=== PATIENT | female | born 1965 | race Caucasian/White ===

== ENCOUNTER → 2021-04-15 17:52 | Outpatient (CLI) | payer OTHER, SELFPAY ==
--- NOTE | ~2021-04-15 | DEXA_ITS ---
Bone Density Report Name: Ariana Colvin Age: 55 Sex: Female Ethnicity: White Date of : 1965 Indication: postmenopausal; screening for osteoporosis; Referring Provider: ZANDRA JOYNER Study: Bone densitometry was performed. Exam Date: April 15, 2021 Accession number: [id number] Bone Density: Region BMD T-score Z-score Classification AP Spine (L1-L4) 0.829 -2.0 -0.9 Osteopenia Femoral Neck (Left) 0.603 -2.2 -1.1 Osteopenia Total Hip (Left) 0.938 0.0 0.7 Normal Femoral Neck (Right) 0.574 -2.5 -1.4 Osteoporosis Total Hip (Right) 0.848 -0.8 -0.1 Normal Total Hip Mean 0.893 -0.4 0.3 Normal World Health Organization criteria for BMD impression classify patients as: Normal (T-score at or above -1.0), Osteopenia (T-score between -1.0 and -2.5), or Osteoporosis (T-score at or below -2.5). 10-year Fracture Risk: FRAX not reported because: Some T-score for Spine Total or Hip Total or Femoral Neck at or below -2.5 Clinical Information Provided by Patient: Patient maximum height was 62.0 Menopause Age: 48 Drinks caffeinated beverages Onset of menses at age 13 Number of children 2 Impression: The patient has osteoporosis, based on the Right Femoral Neck T-score. Discussion: INCREASED RISK OF FRACTURE. BONE DENSITY IS UNDESIRABLY LOW AT ONE OR MORE SKELETAL SITES, CONSISTENT WITH POSTMENOPAUSAL OSTEOPOROSIS. This patient's lowest T-score meets the World Health Organization's (WHO) criteria for osteoporosis at one or more sites (T-score -2.5 or below). In untreated patients, the risk of osteoporotic fracture increases approximately two-fold for each 1.0 SD decrease in T-score. Low bone density is not the only risk factor for fracture; also consider factors such as patient's age, frailty or poor health, risk of falling, risk of injury, previous osteoporotic fracture, family history of osteoporosis, cigarette smoking, low body weight, etc. Not everyone with low bone mineral density has osteoporosis; osteomalacia and other metabolic bone disorders should also be considered. Patients who have osteoporosis should be evaluated for specific diseases and conditions (secondary causes) that may cause or contribute to bone loss. The [place] Association [employer] Clinical Endocrinologists (AACE) and National Osteoporosis Foundation (NOF) recommend pharmacologic intervention for all postmenopausal women whose T-score is in this range. The patient should follow a healthful lifestyle (good nutrition with adequate calcium and vitamin D, and appropriate weight-bearing exercise). Follow-Up: Consider a repeat BMD and Vertebral Fracture Assessment (VFA) exam in 2 years or sooner if medically necessary, to reassess this patient's status. Reported by: [facility] on 04/15/2021 6:45:00 PM. Re
--- NOTE | ~2021-04-15 | MM_ITS ---
EXAMINATION: MM screening marie BI w apryl HISTORY: Screening mammogram, history of right breast cancer TECHNIQUE: Craniocaudal and mediolateral oblique 3-D tomosynthesis images were obtained and synthetic 2-D images were generated. CAD analysis was submitted and interpreted. COMPARISON: No prior mammogram is available for comparison at this institution. BREAST PARENCHYMAL COMPOSITION: There are scattered areas of fibroglandular density. FINDINGS: RIGHT BREAST: Lumpectomy changes are noted in the posterior third of the inner breast. There is no ev idence of suspicious mass, calcification, or architectural distortion to suggest malignancy. LEFT BREAST: There are asymmetries in the posterior and middle thirds of both the outer and inner genie ast on the craniocaudal view. IMPRESSION: 1. Left breast asymmetries which may represent the patient's baseline however no comparison is curren tly available. 2. Comparison with prior mammograms is necessary. BI-RADS Category 0: Incomplete: Needs comparison with prior mammograms. Reviewed, dictated and finalized at location A. IMPRESSION: 1. Left breast asymmetries which may represent the patient's baseline however n o comparison is currently available. 2. Comparison with prior mammograms is necessary. BI-RADS Category 0: Incomplete: Needs comparison with prior mammograms.
== END ==
PROVIDERS: Visit Provider Obstetrics & Gynecology
DX: Z12.31 Encounter for screening mammogram for malignant neoplasm of breast (principal); Z13.820 Encounter for screening for osteoporosis; R92.8 Other abnormal and inconclusive findings on diagnostic imaging of breast; M85.88 Other specified disorders of bone density and structure, other site; M81.0 Age-related osteoporosis without current pathological fracture; M85.852 Other specified disorders of bone density and structure, left thigh
CPT/HCPCS: 77063; 77067; 77080

== ENCOUNTER → 2022-03-09 09:01 | Outpatient (REF) | payer OTHER, SELFPAY | LOC: ANHLAB 09:01 | PROVIDERS: Visit Provider Nurse Practitioner | DX: D22.5 Melanocytic nevi of trunk (principal); D23.72 Other benign neoplasm of skin of left lower limb, including hip | CPT/HCPCS: 88305 ==

== ENCOUNTER → 2022-03-23 09:53 | Outpatient (REF) | payer OTHER, SELFPAY | LOC: ANHLAB 09:53 | PROVIDERS: Visit Provider Nurse Practitioner | DX: D22.5 Melanocytic nevi of trunk (principal) | CPT/HCPCS: 88305 ==

== ENCOUNTER 2023-01-17 09:28 | Emergency (ER) | payer OTHER, SELFPAY ==
--- NOTE | 2023-01-17 09:33 | ED.URI ---
HPI - URI/Sore Throat General Chief Complaint: Upper Respiratory Infection Stated Complaint: Sinus Congestion Time Seen by Provider: 01/17/23 09:33 Source: patient and RN notes reviewed History of Present Illness HPI Narrative: Patient is a 57-year-old female who presents to urgent care with complaints of 1 week sinus congestion, cough. Patient was seen in another urgent care on the and has completed her steroid regimen which ?only helped for a couple days?. Patient is also been using nasal spray and took NyQuil for the cough last night. Denies any fevers, nausea, vomiting, sinus surgery. Patient is suggesting that she ?needs a Z-Ba because used to clear up with her doctor would give her windows?. Patient has not followed up with her own primary care doctor since his symptoms started. No other acute complaints. No acute distress noted. Patient aware of the plan of care. Some parts of this dictation were generated by voice recognition software and may contain typographical and/or grammatical inaccuracies. Related Data Allergies Allergy/AdvReac Type Severity Reaction Status Date / Time No Known Allergies Allergy Verified 01/17/23 09:53 Review of Systems Review of Systems: CONSTITUTIONAL: Denies fever, chills, or sweats. EYES: Denies visual changes, redness, or discharge. ENT: Reports of congestion, rhinorrhea postnasal drainage CARDIOVASCULAR: Denies chest pain, palpitations, or edema. RESPIRATORY: Reports of cough without dyspnea GASTROINTESTINAL: Denies abdominal pain, nausea, vomiting, or diarrhea. GENITOURINARY: Denies dysuria or hematuria. SKIN: Denies rash or itching. MUSCULOSKELETAL: Denies back pain, joint pain, or myalgia. NEUROLOGIC: Denies headache, numbness, or weakness. All other systems reviewed are negative, except as documented in HPI. [facility] Past Medical History Medical History History of right breast cancer Surgical History Surgical History History of breast reconstruction History of lumpectomy History of removal of cyst History of tonsillectomy Family History Family History Mother Family history of osteoporosis Family history of malignant neoplasm of breast in first degree relative Father Hypertension Social History Social History Smoking status: Never smoker Alcohol intake: current Comments At the time of my signature, I reviewed and agree with the nursing past medical, surgical, social, and family history. There is no relevant family history pertinent to the patient complaint. Exam Narrative: GENERAL: This is a well-nourished, well-developed patient, in no apparent distress. HEAD: normocephalic, atraumatic. EYES: PERRL. Sclera clear/white. Vision is grossly intact. EARS: External ears normal, auditory canals clear and without drainage, TMs normal without perforation. Hearing grossly intact. NOSE: External nose normal with no obvious nasal discharge, mild bilateral erythema nares with clear rhinorrhea THROAT: Mucous membranes moist, posterior pharynx clear. Moderate postnasal drainage NECK: Neck supple, non-tender without lymphadenopathy RESPIRATORY: Clear to auscultation. Breath sounds equal bilaterally. No wheezes, rales, or rhonchi. SKIN: warm, intact with no suspicious lesions or rash, good texture and turgor. NEURO: awake, alert, and oriented to person, place and time. There were no obvious focal neurologic abnormalities. EXTREMITIES: No clubbing, cyanosis, or edema. Course Course Level of Care: Express Care Visit Vital Signs Vital signs: Vital Signs Temperature 98.6 F 01/17/23 09:44 Pulse Rate 90 01/17/23 09:44 Respiratory Rate 20 01/17/23 09:44 Blood Pressure 133/64 01/17/23 09:44 Pulse Oximetry 100 01/17/23 09:44
[2023-01-17 09:44] VITALS: BP 133/64; PULSE 90; RESP 20; TEMP 37; O2SAT 100
== END 2023-01-17 10:00 | disposition home or self-care (01) ==
PROVIDERS: Emergency Provider Nurse Practitioner Family; PCP Family Medicine
DX: J32.9 Chronic sinusitis, unspecified (principal)
CPT/HCPCS: 99213; G0463

== ENCOUNTER → 2023-09-06 15:36 | Outpatient (CLI) | payer OTHER, SELFPAY ==
--- NOTE | ~2023-09-06 | XR_ITS ---
Left foot Technique: AP and lateral standing views were obtained. Clinical History: Hallux valgus Findings: No acute fracture or dislocation is seen. There is mild hallux valgus. There is mild degene rative change at the first MTP joint. Soft tissues are unremarkable. Impression: Mild hallux valgus, with mild degenerative change at the first MTP joint. Reviewed, dictated and finalized at location . 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
--- NOTE | ~2023-09-06 | XR_ITS ---
Right foot Technique: AP, oblique, and lateral views were obtained. Clinical History: Hallux valgus Findings: No acute fracture or dislocation is seen. There is minimal hallux valgus. There is minimal degenerative change at the first MTP joint. Soft tissues are unremarkable. Impression: Minimal hallux valgus with minimal degenerative change at the first MTP joint. Reviewed, dictated and finalized at [facility]. ER Impression: Minimal hallux valgus with minimal degenerative change at the first MTP joint.
== END ==
PROVIDERS: PCP Family Medicine; Visit Provider Podiatrist Foot & Ankle Surgery
DX: M19.071 Primary osteoarthritis, right ankle and foot (principal); M19.072 Primary osteoarthritis, left ankle and foot; M20.12 Hallux valgus (acquired), left foot; M20.11 Hallux valgus (acquired), right foot
CPT/HCPCS: 73630

== ENCOUNTER 2023-12-15 13:16 | Outpatient (CLI) | payer OTHER, SELFPAY ==
--- NOTE | ~2023-12-15 | MM_ITS ---
EXAMINATION: MM screening marie BI w apryl HISTORY: Screening mammogram, family history of breast cancer in her mother. Personal history of righ t breast cancer TECHNIQUE: Craniocaudal and mediolateral oblique 3-D tomosynthesis images were obtained and synthetic 2-D images were generated. CAD analysis was submitted and interpreted. COMPARISON: 04/15/2021, 01/12/2018, 03/09/2016 BREAST PARENCHYMAL COMPOSITION: There are scattered areas of fibroglandular density. FINDINGS: There are stable lumpectomy changes of the right breast. In addition, there are stable left breast asymmetries. No suspicious mass, calcification, or architectural distortion are identified in either breast to suggest malignancy. There has been no suspicious interval change. IMPRESSION: 1. No mammographic evidence of malignancy. 2. Recommend routine screening mammography in one year. BI-RADS Category 2: Benign finding(s). Reviewed, dictated and finalized at location A. ATIC DIRECTOR
--- NOTE | ~2023-12-15 | DEXA_ITS ---
Bone Density Report Name: MATTHEW MAGAÑA Age: 58 Sex: Female Ethnicity: White Date of : 1965 Indication: osteopenia;postmenopausal Referring Provider: Cheryl, Linda Study: Bone densitometry was performed. Exam Date: December 15, 2023 Accession number: [id number] Bone Density: Region BMD T-score Z-score Classification AP Spine (L1-L4) 0.796 -2.3 -1.0 Osteopenia Femoral Neck (Left) 0.580 -2.4 -1.2 Osteopenia Total Hip (Left) 0.921 -0.2 0.7 Normal Femoral Neck (Right) 0.636 -1.9 -0.7 Osteopenia Total Hip (Right) 0.874 -0.6 0.3 Normal Total Hip Mean 0.898 -0.4 0.5 Normal World Health Organization criteria for BMD impression classify patients as: Normal (T-score at or above -1.0), Osteopenia (T-score between -1.0 and -2.5), or Osteoporosis (T-score at or below -2.5). 10-year Fracture Risk(1): Major Osteoporotic Fracture 9.4% Hip Fracture 1.5% Reported Risk Factors: [place] (), Neck BMD=0.580, BMI=32.8 (1) FRAX(R) Version 3.08. Fracture probability calculated for an untreated patient. Fracture probability may be lower if the patient has received treatment. Previous Exams: Region Exam Age BMD T-score BMD Change BMD Change Date g/cm2 vs Baseline vs Previous AP Spine(L1-L4) 12/15/2023 58 0.796 -2.3 -0.033* -0.033* 04/15/2021 55 0.829 -2.0 Total Hip(Left) 12/15/2023 58 0.921 -0.2 -0.017 -0.017 04/15/2021 55 0.938 0.0 Total Hip(Right) 12/15/2023 58 0.874 -0.6 0.026 0.026 04/15/2021 55 0.848 -0.8 *Denotes significance at 95% confidence level, LSC for AP Spine = 0.022 g/cm2, LSC for Total Hip = 0.027 g/cm2 Clinical Information Provided by Patient: Has used the following medications: Vitamin D, MTV Patient maximum height was 62.0 Menopause Age: 48 Does not regularly consume dairy products Drinks caffeinated beverages Onset of menses at age 13 Number of children 2 Impression: The patient has low bone mass, based on the Left Femoral Neck T-score. The patient has an estimated ten-year risk of hip fracture of 1.5% and an estimated ten-year risk of major fracture of 9.4%, based on the WHO FRAX algorithm. The BMD for the AP Spine(L1-L4) decreased, changing by -0.033 since the last DXA exam. Discussion: BONE DENSITY IS LOW AT ONE OR MORE SKELETAL SITES. This patient's lowest T-score is low at one or more skeletal sites. It meets the World Health
== END 2023-12-15 13:17 ==
LOC: MICIMG 13:18
PROVIDERS: PCP Family Medicine; Visit Provider Nurse Practitioner
DX: Z12.31 Encounter for screening mammogram for malignant neoplasm of breast (principal); Z78.0 Asymptomatic menopausal state; M85.89 Other specified disorders of bone density and structure, multiple sites
CPT/HCPCS: 77063; 77067; 77080

== ENCOUNTER 2023-12-15 14:44 | Outpatient (CLI) | payer OTHER, SELFPAY ==
[2023-12-15 19:41] LABS: Vitamin D 25 Hydroxy 62.4 ng/mL
== END 2023-12-15 14:45 | disposition home or self-care (01) ==
LOC: ANHGOSHLAB 14:48
PROVIDERS: PCP Family Medicine
DX: E55.9 Vitamin D deficiency, unspecified (principal)
CPT/HCPCS: 36415; 82306

== ENCOUNTER 2024-12-17 13:49 | Outpatient (CLI) | payer OTHER, SELFPAY ==
--- NOTE | ~2024-12-17 | MM_ITS ---
EXAMINATION: MM screening marie BI w apryl HISTORY: Screening TECHNIQUE: Craniocaudal and mediolateral oblique 3-D tomosynthesis images were obtained and synthetic 2-D images were generated. CAD analysis was submitted and interpreted. COMPARISON: Comparison to multiple prior studies sequentially, with oldest reviewed study dated 03/09. BREAST PARENCHYMAL COMPOSITION: Not dense: There are scattered areas of fibroglandular density. FINDINGS: There is focal architectural distortion with possible small central mass centrally in the l eft breast on CC view. The right breast is stable without evidence for malignancy. IMPRESSION: 1. Possible small mass with architectural distortion centrally in the left breast on CC view. 2. Additional mammographic views and possible breast ultrasound are recommended. BI-RADS Category 0: Incomplete: Needs additional imaging evaluation. Reviewed, dictated and finalized at location B. 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 Possible small mass with architectural distortion centrally in the left [address] on CC view. 2. Additional mammographic views and possible breast ultrasound are recommended . BI-RADS Category 0: Incomplete: Needs additional imaging evaluation.
== END 2024-12-17 13:50 | disposition home or self-care (01) ==
PROVIDERS: PCP Nurse Practitioner; Visit Provider Nurse Practitioner
DX: Z12.31 Encounter for screening mammogram for malignant neoplasm of breast (principal); R92.8 Other abnormal and inconclusive findings on diagnostic imaging of breast
CPT/HCPCS: 77063; 77067

== ENCOUNTER 2025-01-04 13:14 | Outpatient (CLI) | payer OTHER, SELFPAY ==
--- NOTE | ~2025-01-04 | MMUS_ITS ---
EXAMINATION: MM diagnostic marie LT w apryl, US breast LT limited HISTORY: 59-year-old woman with a personal history of right-sided triple negative breast cancer in 20 06 at age 40, post right-sided lumpectomy who underwent left breast reduction mammoplasty in 2016, pr esmina for diagnostic evaluation of a focus of architectural distortion within the left breast, seen on screening mammography on 12/17/2024 TECHNIQUE: Additional 3-D tomosynthesis images of the left breast were performed and synthetic 2-D im ages were generated. CAD analysis was submitted and interpreted. High resolution limited left breast ultrasound was performed. COMPARISON: Examination was compared with multiple prior mammographic/tomographic studies performed m ost recently on 12/17/2024 and dating back to 04/15/2021. Reference is also made to prior outside mammography performed 01/12/2018 and dating back to 12/16/2014. BREAST PARENCHYMAL COMPOSITION:Dense: The breasts are heterogeneously dense, which may obscure small masses. FINDINGS: All MAMMOGRAPHIC FINDINGS: Spot compression of the area of prior imaging concern was performed. This demonstrates an irregular 6.5 mm asymmetry with surrounding spiculations, and a lucent, irregula r halo (on both CC and MLO), for which focused ultrasound will be performed. ULTRASOUND: Sonographic evaluation of the upper outer quadrant of the left breast was performed. At the 1:00 position of the left breast approximately 2 cm from the nipple is an irregular shadowing focus corresponding to the abnormality seen on mammography. This focus measures 4.6 x 3.2 x 5.2 mm, d emonstrating angular margins and posterior acoustic shadowing for which ultrasound-guided biopsy is r ecommended. IMPRESSION: Sonographic findings at the 1:00 position of the left breast corresponding to the abnormality seen ma mmographically for which ultrasound-guided biopsy is recommended. BI-RADS category 5, highly suggestive of malignancy. Reviewed, dictated and finalized at location A. R OFF HEMP FIBER IMPRESSION: Sonographic findings at the 1:00 position of the left breast corresponding to t he abnormality seen mammographically for which ultrasound-guided biopsy is milan mmended. BI-RADS category 5, highly suggestive of malignancy.
--- OUTSIDE RECORDS SUMMARY | 2025-01-04 13:42 | XMS_ITS | Referral Summary ---
Author Organization [facility] Medical Office Building B Address [address] [place] [address] Care Team Providers Care Venetian Blind Assembler Name Role Phone Tanya Colin PT Unavailable Unavailable Katty Dowell PT Unavailable Unavailable Jania Johnson MD Primary Care Provider Encounters Date Type Department Care Team Description 12/14/2024 8:55 AM MUD CAR WORKER Lab [address] [address] from Last 3 Months Allergies Active Allergy Reactions Criticality Noted Date Comments Nickel Medications ibuprofen (ADVIL,MOTRIN) 800 mg tablet 09/18/2021 Activ e cholecalciferol (VITAMIN D-3) 50,000 unit capsule Take 1 capsule (50,000 Units total) by mouth once a week Takes 10,000units 5 days a week Active Active Problems Problem Noted Date Diagnosed Date 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 Refer patient to Plastic surgery for eval Bilateral foot pain 06/28/2023 Assessment & Plan (06/28/2023 3:58 PM CDT): Chronic. Bilateral bunions noted on physical exam. Referred to Podiatry for evaluation treatment Mixed hyperlipidemia 06/28/2023 Assessment & Plan (06/28/2023 3:58 PM CDT): Total cholesterol and LDL both elevated. ASCVD risk score 2%. Low risk for cardiovascular morbidity. Dietary and exercise recommendations given. Will continue to monitor Bilateral bunions 06/28/2023 Annual physical exam 05/11/2022 Assessment & Plan (06/28/2023 3:57 PM CDT): Doing well. BMI: 31.5 obese Routine labs ordered - lab results reviewed Preventative Screening Due: Mammo, Cologuard Due. Orders placed Dietary and exercise recommendations given today. Recommend exercise at least 30 minutes moderate to vigorous exercise and some strength training most days of the week. (minimum 150 minutes weekly) Discussed MyPlate recommendations and increasing fruits and vegetables Vaccines due - TDAP, Zoster, influenza and fall and COVID booster recommended RTC annually for f/u Assessment & Plan (05/11/2022 12:35 PM CDT): Doing well. BMI: 28.9 (Overweight) Routine labs ordered - BMP,Lipid Preventative Screening Due: Mammo, C scope Due. Has order and will schedule Dietary and exercise recommendations given today. Recommend exercise at least 30 minutes moderate to vigorous exercise and some strength training most days of the week. (minimum 150 minutes weekly) Discussed MyPlate recommendations and increasing fruits and vegetables Vaccines due - TDAP, Zoster recommended RTC annually for f/u Winging of scapula 04/20/2018 Neck pain 04/14/2018 Assessment & Plan (04/14/2018 8:41 AM CDT): Recommend ice or heat packs 20mins/hr prn pain. Encouraged ROM exercises. Acute right-sided low back pain without sciatica 04/14/2018 Assessment & Plan (04/14/2018 8:41 AM CDT): Recommend ice or heat packs 20mins/hr prn pain. Encouraged ROM exercises. Decreased shoulder mobility, right 01/30/2018 Assessment & Plan (01/30/2018 5:02 PM CDT): Reviewed xrays, referral given for further eval/tx. Class 1 obesity due to exces s calories without serious comorbidity with body mass index (BMI) of 31.0 to 31.9 in adult 12/21/2017 Assessment & Plan (12/21/2017 8:48 AM MUD CAR WORKER): Obesity is improving with lifestyle modifications. Discussed the patient's BMI. The BMI is above average; BMI management plan is completed. General weight loss/lifestyle modification strategies discussed (elicit support from others; identify saboteurs; non-food rewards, etc). Tendinitis of wrist 03/26/2016 Overview (02/03/2017): Tendonitis of wrist, right History of breast cancer in female 05/11/2002 Resolved Problems Problem Noted Date Diagnosed Date Resolved Date Acute cystitis without hematuria 12/21/2017 01/30/2018 Immunizations Immunization Administration Dates Next Due Influenza, Trivalent, IM (MDV) 08/08/2015,2011 Influenza, Unspecified 09/13/2017,07/31/2016 Social History Tobacco Use Types Packs/Day Years Used Date Smoking Tobacco: Never Smokeless Tobacco: Never Tobacco Cessation:Counseling Given: Yes Alcohol Use Standard Drinks/Week Comments Yes 0 (1 standard drink = 0.6 oz pur e alcohol) AUDIT-C Answer Date Recorded Q1: How often do you have a drink containing alc ohol? 2-4 times a month 06/28/2023 Q2: How many drinks containi ng alcohol do you have on a typical day when you are drinking? 1 or 2 06/28/2023 Q3: How often do you have si x or more drinks on one occasion? Never 06/28/2023 PHQ-2 Answer Date Recorded PHQ-2 Total Score (If total score is 3 or more points, staff should administer the PHQ-9) 0 06/28/2023 Comments No Sex and Gender Information Value Date Recorded Sex Assigned at Not on file Legal Sex Female 4:22 PM MUD CAR WORKER Gender Identity Not on file Sexual Orientation Not on file Last Filed Vital Signs Vital Sign Reading Time Taken Comments Blood Pressure 112/76 06/28/2023 2:11 PM CDT Pulse 84 06/28/2023 2:11 PM CDT Temperature 36.8 C (98.2 F) 06/28/2023 2:11 PM CDT Respiratory Rate 16 06/28/2023 2:11 PM CDT Oxygen Saturation 95% 06/28/2023 2:11 PM CDT Inhaled Oxygen Concentration - - Weight 78 kg (172 lb) 06/28/2023 2:11 PM CDT Height 157.5 cm (5' 2 ) 06/28/2023 2:11 PM CDT Body Mass Index 31.46 06/28/2023 2:11 PM CDT Plan of Treatment Not on file Procedures Procedure Name Priority Date/Time Associated Diagnosis Comments EGFR Routine 12/14/2024 9:12 AM MUD CAR WORKER DIFFERENTIAL AUTO Routine 12/14/2024 9:1 2 AM MUD CAR WORKER VITAMIN D 25 HYDROXY Routine 12/14/2024 9:12 AM MUD CAR WORKER VITAMIN B12 Routine 12/14/2024 9:12 AM MUD CAR WORKER T4, FREE Routine 12/14/2024 9:12 AM MUD CAR WORKER THYROID FUNCTION CASCADE Routine 12/14/2024 9:12 AM MUD CAR WORKER HEMOGLOBIN A1C Routine 12/14/2024 9:12 AM MUD CAR WORKER LIPID PANEL Routine 12/14/2024 9:12 AM MUD CAR WORKER COMPREHENSIVE METABOLIC PANEL Routine 12/14/2024 9:12 AM MUD CAR WORKER CBC WITH AUTO DIFFERENTIAL Routine 12/14/2024 9:12 AM MUD CAR WORKER STOOL DNA COLOGUARD Routine 07/30/2023 8:50 AM CDT Colon cancer screening SCREENING MAMMOGRAM BILATERAL W HERBERT Schedule Routine, Read Routine (OP Routine) 01/12/2018 1:35 PM CDT Screening breast examination HM COLONOSCOPY Routine 01/12/2018 HM PAP SMEAR WITH HPV Routine 06/19/2017 from Last 3 Months or Most Recently Relevant to Health Maintenance Results * eGFR (12/14/2024 9:12 AM MUD CAR WORKER) eGFR 78 >=60 mL/min/1. 73 m2 Comment: Interpretive Data Reference Interval Normal >/= 90 mL/min/1.73m2 Mildly decreased* 60 - 89 mL/min/1.73m2 Mildly to moderately decreased 45 - 59 mL/min/1.73m2 Moderately to severely decreased 30 - 44 mL/min/1.73m2 Severely decreased 15 - 29 mL/min/1.73m2 Kidney Failure < 15 mL/min/1.73m2 *Relative to young adult level Estimated glomerular filtration rate is determined by the 2020 CKD-EPI equation recommended by the National Kidney Foundation (A Unifying Approach to GFR Estimation: Recommendations of the NKF-ASK Task Force on Reassessing the Inclusion of Race in Diagnosing Kidney Disease, JASN 2020). The CKD-EPI equation should not be used for patients with unstable renal function and has not been validated in children and those over 70. Current interpretive data was last reviewed 2021. Blood 12/14/2024 9:12 AM MUD CAR WORKER 12/14/2024 9:28 AM MUD CAR WORKER us Hillary Cordova NP LAB BLOOD ORDERABLES Final Result [facility] (P[place]) 1 [facility] Department [place] [address] * Differential, auto (12/14/2024 9:12 AM MUD CAR WORKER) Pathologist [facility] Neutrophil abs 4.0 1.5 - 6.5 K/cumm Imm gran abs 0.0 0.0 - 0.1 K/cumm [facility] ([facility]) Lymphocyte abs 2.3 0.8 - 3.3 K/cumm [facility] ([place]) Monocyte abs 0.4 0.2 - 0.8 K/cumm [facility] ([place]) Eosinophil abs 0.1 0.0 - 0.5 K/cumm [facility] ([place]) Basophil abs 0.1 0.0 - 0.1 K/cumm [facility] ([place]) Neutrophil pct 58.7 % [facility] ([place]) Comment: Interpretive Data Percent cell count reference ranges are not reported, since discordance with absolute values may lead to misinterpretation of CBC data. Current Interpretive Data was last revised on 2018. Imm gran pct 0.1 % [facility] ([place]) Comment: Interpretive Data Percent cell count reference ranges are not reported, since discordance with absolute values may lead to misinterpretation of CBC data. Current Interpretive Data was last revised on 2018. Lymphocyte pct 33.9 % [facility] ([place]) Comment: Interpretive Data Percent cell count reference ranges are not reported, since discordance with absolute values may lead to misinterpretation of CBC data. Current Interpretive Data was last revised on 2018. Monocyte pct 5.6 % [facility] ([place]) Comment: Interpretive Data Percent cell count reference ranges are not reported, since discordance with absolute values may lead to misinterpretation of CBC data. Current Interpretive Data was last revised on 2018. Eosinophil pct 1.0 % [facility] ([place]) Comment: Interpretive Data Percent cell count reference ranges are not reported, since discordance with absolute values may lead to misinterpretation of CBC data. Current Interpretive Data was last revised on 2018. Basophil pct 0.7 % [facility] ([place]) Comment: Interpretive Data Percent cell count reference ranges are not reported, since discordance with absolute values may lead to misinterpretation of CBC data. Current Interpretive Data was last revised on 2018. Blood 12/14/2024 9:12 AM MUD CAR WORKER 12/14/2024 9:28 AM MUD CAR WORKER Hillary Cordova LOAN OFFICER LAB BLOOD ORDERABLES Final Result RIGOBERTO EDIE ([place]LL) 1 [facility] Department of Laboratories [place], [place] [address] * Thyroid Function Oliver (12/14/2024 9:12 AM MUD CAR WORKER) TSH 3.63 0.30 - 4.20 mcIUnit/mL Blood 12/14/2024 9:12 AM MUD CAR WORKER 12/14/2024 9:28 AM MUD CAR WORKER Hillary Cordova LOAN OFFICER LAB BLOOD ORDERABLES Final Result [facility] ([place]) 1 [facility] [place] [address] * CBC with auto differential (12/14/2024 9:12 AM MUD CAR WORKER) WBC 6.8 3.8 - 9.9 K/cumm Hgb 13.1 11.9 - 15.5 g/dL [facility] ([place]) Hct 40.0 35.6 - 45.5 % [facility] ([place]) Plt 263 150 - 400 K/cumm [facility] ([place]) MPV 10.0 9.1 - 12.3 fL [facility] ([place]) RBC 4.29 3.90 - 5.20 M/cumm [facility] ([place]) MCV 93.2 81.3 - 96.4 fL [facility] ([place]) MCH 30.5 27.1 - 33.3 pg [facility] ([place]) MCHC 32.8 32.3 - 35.7 g/dL [facility] ([place]) RDW CV 12.0 11.1 - 14.9 % [facility] ([place]) RDW SD 40.8 35.7 - 48.1 fL [facility] ([place]) NRBC abs 0.00 0.00 - 0.01 K/cumm [facility] ([place]) Blood 12/14/2024 9:12 AM MUD CAR WORKER 12/14/2024 9:28 AM MUD CAR WORKER Hillary Cordova NP LAB BLOOD ORDERABLES Final Result RIGOBERTO IRIZARRY (ANA[place]) 1 [facility] [place] [address] * Vitamin D 25 hydroxy (12/14/2024 9:12 AM MUD CAR WORKER) Vitamin D 25-OH 71 30 - 80 ng/mL Blood 12/14/2024 9:12 AM MUD CAR WORKER 12/14/2024 9:28 AM MUD CAR WORKER Hillary Cordova NP LAB BLOOD ORDERABLES Final Result Performing Organization Address City/[facility] Co de Phone Number RIGOBERTO VALENTINON) [address] [place] [address] * T4, free (12/14/2024 9:12 AM MUD CAR WORKER) [facility] Free T4 1.06 0.90 - 1.70 ng/dL Blood 12/14/2024 9:12 AM MUD CAR WORKER 12/14/2024 9:28 AM MUD CAR WORKER Hillary Cordova NP LAB BLOOD ORDERABLES Final Result Performing Organization Address [facility] de Phone Number RIGOBERTO IRIZARRY (PAGUATE) [address] [place] [address] * Hemoglobin A1c (12/14/2024 9:12 AM MUD CAR WORKER) [facility] Hgb A1C 5.4 4.0 - 5.6 % Estimated Average Glucose 108 mg/dL RIGOBERTO IRIZARRY (PAGUATE) Comment: The ADA recommends reporting an estimated Average Glucose (eAG) with all Hemoglobin A1c results using the equation derived from a study of 507 normal and diabetic adults. Minority populations were underrepresented and children were not included. (Diabetes Care 31:1241-4298, 2008). The eAG is not equivalent to a fasting glucose. Blood 12/14/2024 9:12 AM MUD CAR WORKER 12/14/2024 9:28 AM MUD CAR WORKER Hillary Cordova NP LAB BLOOD ORDERABLES Final Result Performing Organization Address [facility] Co de Phone Number RIGOBERTO IRIZARRY (PAGUATE) [address] [place] [address] * Vitamin B12 (12/14/2024 9:12 AM MUD CAR WORKER) [facility] Vitamin B12 874 230 - 1,250 pg/mL Blood 12/14/2024 9:12 AM MUD CAR WORKER 12/14/2024 9:28 AM MUD CAR WORKER us Hillary Cordova NP LAB BLOOD ORDERABLES Final Result RIGOBERTO IRIZARRY ([place]) 1 [facility] Department [place] [address] * (ABNORMAL) Lipid panel (12/14/2024 9:12 AM MUD CAR WORKER) Cholesterol 259(H) 30 - 199 mg/dL Comment: Interpretive Data Ages < or = 19 years Acceptable: <170 mg/dL Borderline high: 170-199 mg/dL High: >or= 200 mg/dL Ages > or = 20 years Desirable: <200 mg/dL Borderline high: 200-239 mg/dL High: >or= 240 mg/dL Literature References: 1. Expert Panel on Integrated Guidelines for Cardiovascular Health and Risk Reduction in Children and Adolescents. Pediatrics 2011;128:S213 2. NCEP Expert Panel. Circulation 2004;110:227 Current Interpretive Data was last revised on 2018. Triglycerides 106 <=149 mg/dL RIGOBERTO IRIZARRY (ANABELL) Comment: Interpretive Data Ages < or = 9 years Acceptable: <75 mg/dL Borderline high: 75-99 mg/dL High: >or= 100 mg/dL Ages 10 to 20 years Acceptable: <90 mg/dL Borderline high: 90-129 mg/dL High: >or= 130 mg/dL Ages > or = 20 years Desirable: <150 mg/dL Borderline high: 150-199 mg/dL High: 200-499 mg/dL Very high: >or= 499 mg/dL Literature References: 1. Expert Panel on Integrated Guidelines for Cardiovascular Health and Risk Reduction in Children and Adolescents. Pediatrics 2011;128:S213 2. NCEP Expert Panel. Circulation 2004;110:227 Current Interpretive Data was last revised on 2018. HDL 81 >=40 mg/dL RIGOBERTO IRIZARRY (ANABELL) Comment: Interpretive Data Ages < or = 19 years Acceptable: >45 mg/dL Borderline low: 40-45 mg/dL Low: <40 mg/dL Ages > or = 20 years Desirable: >or= 60 mg/dL Low: <40 mg/dL Literature References: 1. Expert Panel on Integrated Guidelines for Cardiovascular Health and Risk Reduction in Children and Adolescents. Pediatrics 2011;128:S213 2. NCEP Expert Panel. Circulation 2004;110:227 Current Interpretive Data was last revised on 2018. LDL, calculated 160(H) <=129 mg/dL RIGOBERTO IRIZARRY (ANA[place]LL) Comment: Interpretive Data Ages < or = 19 years Acceptable: <110 mg/dL Borderline high: 110-129 mg/dL High: >or= 130 mg/dL Ages > or = 20 years Optimal: <100 mg/dL Near optimal: 100-129 mg/dL Borderline high: 130-159 mg/dL High: >160 mg/dL Calculated using the Sanjeev LDL-C estimating equation. This equation was implemented on 2024. Prior to this date LDL-C was estimated using the Friedewald equation. Literature References: 1. Expert Panel on Integrated Guidelines for Cardiovascular Health and Risk Reduction in Children and Adolescents. Pediatrics 2011;128:S213 2. NCEP Expert Panel. Circulation 2004;110:227 3. Sanjeev Cavanaugh et al. PROSPER Cardiol. 2019February 28;5(5):540-548. doi: 10.1001/jamacardio.2020.0013 Current Interpretive Data was last revised on 2024. Non-HDL Cholesterol 178 mg/dL RIGOBERTO IRIZARRY (ANABELL) Comment: Interpretive Data Ages < or = 19 years Acceptable: <120 mg/dL Borderline high: 120-144 mg/dL High: >145 mg/dL Ages > or = 20 years When triglycerides are >200 mg/dL, Non-HDL cholesterol is a secondary target of therapy with treatment goals that are 30 mg/dL greater than the LDL cholesterol target. Literature References: 1. Expert Panel on Integrated Guidelines for Cardiovascular Health and Risk Reduction in Children and Adolescents. Pediatrics 2011;128:S213 2. NCEP Expert Panel. Circulation 2004;110:227 Current Interpretive Data was last revised on 2018. Chol/HDL ratio 3 MARLENE IRIZARRY (ANABELL) Blood 12/14/2024 9:12 AM MUD CAR WORKER 12/14/2024 9:28 AM MUD CAR WORKER Hillary Cordova NP LAB BLOOD ORDERABLES Final Result [facility] ([place]) 1 [facility] Department [place] [address] * Comprehensive metabolic panel (12/14/2024 9:12 AM MUD CAR WORKER) Sodium 141 135 - 145 mmol/L Potassium, pl 4.5 3.3 - 4.9 mmol/L [facility] ([place]) Chloride 104 97 - 110 mmol/L [facility] ([place]) CO2 28 22 - 32 mmol/L [facility] ([place]) Anion gap 9 2 - 15 mmol/L [facility] ([place]) BUN 12 6 - 25 mg/dL [facility] ([place]) Creatinine 0.86 0.60 - 1.10 mg/dL [facility] ([place]) Glucose 100 70 - 199 mg/dL [facility] ([place]) Comment: Interpretive Data Fasting glucose >/= 126 mg/dl is diagnostic for diabetes. Fasting is defined as no caloric intake for at least 8 hours. Fasting glucose between 100 mg/dl to 125 mg/dl is diagnostic of prediabetes. In a patient with classic symptoms of hyperglycemia or hyperglycemic crisis, a random glucose >/= 200 mg/dl is diagnostic for diabetes. In the absence of unequivocal hyperglycemia, results should be confirmed by repeat testing. The classification and Diagnosis of Diabetes Diabetes Care 2021; 46: S19-S40. Current interpretive data was last revised 2022. Calcium 9.9 8.5 - 10.3 mg/dL [facility] ([place]) Bilirubin, total 0.4 0.1 - 1.2 mg/dL [facility] ([place]) Protein, pl 7.0 6.5 - 8.5 g/dL [facility] ([place]) Albumin 4.7 3.5 - 5.0 g/dL [facility] ([place]) Alk phos 72 40 - 130 Units/L [facility] ([place]) ALT 27 7 - 45 Units/L [facility] ([place]) AST 26 10 - 45 Units/L [facility] ([place]) Blood 12/14/2024 9:12 AM MUD CAR WORKER 12/14/2024 9:28 AM MUD CAR WORKER Hillary Cordova NP LAB BLOOD ORDERABLES Final Result RIGOBERTO IRIZARRY PAGUATE) 8 [facility] Department of Laboratories [place], [place] [id number] * Stool DNA - Cologuard (07/30/2023 8:50 AM CDT) Stool DNA - Cologuard Negative Negative [employer] (CLIA #:[id number]) Comment: NEGATIVE TEST RESULT. A negative Cologuard result indicates a low likelihood that a colorectal cancer (CRC) or advanced adenoma (adenomatous polyps with more advanced pre-malignant features) is present. The chance that a person with a negative Cologuard test has a colorectal cancer is less than 1 in 1500 (negative predictive value >99.9%) or has an advanced adenoma is less than 5.3% (negative predictive value 94.7%). These data are based on a prospective cross-sectional study of 10,000 individuals at average risk for colorectal cancer who were screened with both Cologuard and colonoscopy. (Jayla Randall. et al, N Engl J Med 2014;370(14):6147-1941) The normal value (reference range) for this assay is negative. COLOGUARD RE-SCREENING RECOMMENDATION: Periodic colorectal cancer screening is an important part of preventive healthcare for asymptomatic individuals at average risk for colorectal cancer. Following a negative Cologuard result, the [place] [employer] Society and U.S. Multi-Society Task Force screening guidelines recommend a Cologuard re-screening interval of 3 years. References: [place] [employer] Guideline for Colorectal Cancer Screening: https://www.cancer.org/cancer/qqryc-xoxxts-zeoklm/ccdqxvqvm-myzbaiwfb-honbqgx/ac s-rec ommendations.html.; Christiano DK, Kade CR, Kami GutierrezK, Colorectal Cancer Screening: Recommendations for Physicians and Patients from the U.S. Multi-Society Task Force on Colorectal Cancer Screening , Am J Gastroenterology 2017; 112:2397-4308. TEST DESCRIPTION: Composite algorithmic analysis of stool DNA-biomarkers with hemoglobin immunoassay. Quantitative values of individual biomarkers are not reportable and are not associated with individual biomarker result reference ranges. Cologuard is intended for colorectal cancer screening of adults of either sex, 45 years or older, who are at average-risk for colorectal cancer (CRC). Cologuard has been approved for use by the U.S. FDA. The performance of Cologuard was established in a cross sectional study of average-risk adults aged 50-84. Cologuard performance in patients ages 45 to 49 years was estimated by sub-group analysis of near-age groups. Colonoscopies performed for a positive result may find as the most clinically significant lesion: colorectal cancer [4.0%], advanced adenoma (including sessile serrated polyps greater than or equal to 1cm diameter) [20%] or non- advanced adenoma [31%]; or no colorectal neoplasia [45%]. These estimates are derived from a prospective cross-sectional screening study of 10,000 individuals at average risk for colorectal cancer who were screened with both Cologuard and colonoscopy. (Jayla Jurado et al, N Engl J Med 2014;370(14):8270-1368.) Cologuard may produce a false negative or false positive result (no colorectal cancer or precancerous polyp present at colonoscopy follow up). A negative Cologuard test result does not guarantee the absence of CRC or advanced adenoma (pre-cancer). The current Cologuard screening interval is every 3 years. ([place] [employer] Society and U.S. Multi-Society Task Force). Cologuard performance data in a 10,000 patient pivotal study using colonoscopy as the reference method can be accessed at the following location: www.DataRose/results. Additional description of the Cologuard test process, warnings and precautions can be found at www.Vungleoguard.com. Stool 07/30/2023 8:50 AM CDT 08/01/2023 4:12 AM CDT us Jania Johnson MD LAB BODY FLUIDS AND STOOLS O RDERABLES Final Result [facility] (CLIA #:[id number]) [place] [address] * Screening Mammogram Bilateral W Herbert (01/12/2018 1:35 PM CDT) Anatomical Region Laterality Modality Breast Bilateral Mammography Impressions 01/12/2018 1:36 PM CDT BIRADS Category 2: Benign finding(s). Digital technology was employed plus computer-aided detection software (R2) was utilized in interpretation of these images. This facility utilizes a reminder system to notify patients of yearly mammograms. Electronically signed by: Jerry Torres M.D. Narrative 01/12/2018 1:36 PM CDT EXAMINATION: Digital screening mammogram with tomosynthesis. HISTORY: Breast cancer screening. Right breast cancer, status post lumpectomy. PRIOR: 04/18/2012 DENSITY: Scattered fibroglandular densities FINDINGS: Normal involution of the breast tissue has occurred. No new dominant mass, architectural distortion, nipple retraction, skin thickening, or suspicious calcifications are seen. Lumpectomy changes in the right breast are noted. A oil cyst is seen in the right subareolar breast tissue. A few benign calcifications are noted. Mohini Norris DO IMG MAMMO PROCEDURES Final Result * COLONOSCOPY (01/12/2018) Colonoscopy Normal Historical Provider HEALTH MAINTENANCE Final Result * PAP SMEAR WITH HPV (06/19/2017) Pap smear Normal Historical Provider HEALTH MAINTENANCE Final Result from Last 3 Months or Most Recently Relevant to Health Maintenance Insurance [facility] CHOICE PLUS [facility] CHOICE PLUS WORKERS COMPENSATION GENERIC Care Teams Venetian Blind Assembler Relationship Specialty Start Date End Date Jania Johnson MD PCP - General Family Practice 05/11/22 Tanya Colin, PT Physical Therapist Physical Therapy 05/09/18 Katty Dowell PT Physical Therapist Physical Therapy 05/15/18
--- OUTSIDE RECORDS SUMMARY | 2025-01-04 13:42 | XMS_ITS | Encounter Summary ---
Author Organization [facility] Address [address] [place] [address] Care Team Providers Care Firmware Architect Name Role Phone Ruiz Krishna MD Primary Care Provider [phone] Encounter Details Date Type Department Care Team (Latest Contact Info) Description 01/12/2009 Outpatient Historical [facility] Radiation Oncology [place] [address] [place] [phone] Xiomara Guerra MD NO ADDRESS ON FILE Malignant Neoplasm of Upper-Inner Quadrant of Female Breast (CMS/HCC) Social History Tobacco Use Types Packs/Day Years Used Date Smoking Tobacco: Never Assessed Comments Unknown Sex and Gender Information Value Date Recorded Sex Assigned at Not on file Legal Sex Female 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
--- OUTSIDE RECORDS SUMMARY | 2025-01-04 13:42 | XMS_ITS | Encounter Summary ---
Author Organization [facility] Address 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 Breast (CMS/HCC) Social History Tobacco Use Types Packs/Day Years Used Date Smoking Tobacco: Never Assessed Comments Unknown Sex and Gender Information Value Date Recorded Sex Assigned at Not on file 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
--- OUTSIDE RECORDS SUMMARY | 2025-01-04 13:42 | XMS_ITS | Clinical Summary ---
Author Organization [facility] Address [address] [place] [address] Phone Care Team Providers Care Foot Worker Name Role Phone Ruiz Krishna MD Primary Care Provider [phone] Family History Medical History Relation Name Comments Breast Cancer Mother Relation Name Status Comments Mother Social History Tobacco Use Types Packs/Day Years Used Date Smoking Tobacco: Never Assessed Comments No Sex and Gender Information Value Date Recorded Sex Assigned at Not on file Legal Sex Female 9:28 PM CDT Gender Identity Not on file Sexual Orientation Not on file Plan of Treatment Health Maintenance Due Date Last Done Comments TdaP Immunization 1965 Hepatitis B Immunization (1 of 3 - 19+ 3-dose series) 1984 Pap Smear 1986 Cervical Cancer Screening (CCS) 1995 HPV/Cotest 1995 Colonoscopy 2010 Colorectal Cancer Screening 2010 Cologuard 2015 Immunochemical Fecal Occult Blood 2015 Pneumococcal Immunization (5 0+ years) (1 of 1 - PCV) 2015 Zoster Immunization (1 of 2) 2015 Mammogram 03/09/2017 03/09/2016 Influenza Immunization (#1) 2024 SARS-COV-2 Immunization (1 - 2023-25 season) 2024 Respiratory Syncytial Virus (RSV) Immunization (Adult) (1 - 1-dose 75+ series) 2040 Hepatitis C Virus (HCV) Screening Completed 017 Meningococcal Immunization (ACWY) Aged Out No longer eligible based on patient's age to complete this topic Pneumococcal Immunization Combined Aged Out No longer eligible based on patient's age to complete this topic Rotavirus Immunization Aged Out No lo nger eligible based on patient's age to complete this topic Procedures Procedure Name Priority Date/Time Associated Diagnosis Comments HEPATITIS C ANTIBODY Routine 02/10/2017 11:11 AM CDT Encounter for general adult medical examination w/o abnormal findings [facility] SCREENING BILATERAL DIGITAL W CAD Routine 03/09/2016 12:04 PM CDT Visit for screening mammogram from Last 3 Months or Most Recently Relevant to Health Maintenance Results * HEPATITIS C ANTIBODY (02/10/2017 11:11 AM CDT) hepatitis C antibody 0.07 <1 S/CO 02/10/2017 11:19 PM CDT [facility] Comment: Signal/Cutoff ratio < 0.79 is Nondetected Signal/Cutoff ratio 0.80-0.99 is Grayzone Signal/Cutoff ratio > 0.99 is Detected Supplemental assays are recommended if signal/cutoff ratio is >/=1.00. Signal/cutoff ratio result >/= 5.00 is 97% predictive of positivity for recombinant immunoblot assay (RIBA) and will be reported to the [place] [facility] Public [facility] as required. Blood specimen (specimen) Venipuncture / Unknown 02/10/2017 11:11 AM CDT 02/10/2017 2:18 PM CDT us Ruiz Krishna MD CHEMISTRY ORDERABLES Final Resul t [facility] [address] [place] [address], * QUINN SCREENING BILATERAL DIGITAL W CAD (03/09/2016 12:04 PM CDT) Anatomical Region Laterality Modality breast Bilateral Mammography 03/09/2016 11:4 1 AM CDT Narrative 03/10/2016 7:10 AM CDT - QUINN SCREENING BILATERAL DIGITAL W CAD BILATERAL DIGITAL SCREENING MAMMOGRAM WITH CAD WITH MEDIOLATERAL OBLIQUE CRANIOCAUDAL: 03/09/2016 The study was acquired using digital technology and interpreted from soft copy. Current study was also evaluated with ICAD version 7.2. CLINICAL: Routine screening. Patient has no complaints. Previous history of breast cancer at age 36. Mother with post-menopausal breast cancer. COMPARISONS: Comparison is made to exams dated: 12/16/2014, 09/21/2013 [facility], and 02/22/2011 [facility]. BREAST TISSUE:There are scattered fibroglandular densities in both breasts. FINDINGS: There are post operative findings in the right breast. No significant masses, calcifications, or other findings are seen in either breast. There has been no significant interval change. IMPRESSION: BI-RAD 1 NEGATIVE There is no mammographic evidence of malignancy. A 1 year screening mammogram is recommended. The patient has been or will be contacted. The patient will be entered into a reminder system with a target due date of 1 year for her next screening exam. Electronically signed by: Sammy lancaster/mervat:03/09/2016 13:34:43 Undercoater: Margaret YUNG(Nicole)(Mao), [facility] letter sent: Normal Exam Reading location: [facility] BI-RADS: 1 Negative Procedure Note Sammy Carballo MD - 03/10/2016 - QUINN SCREENING BILATERAL DIGITAL W CAD BILATERAL DIGITAL SCREENING MAMMOGRAM WITH CAD WITH MEDIOLATERAL OBLIQUE CRANIOCAUDAL: 03/09/2016 The study was acquired using digital technology and interpreted from soft copy. Current study was also evaluated with ICAD version 7.2. CLINICAL: Routine screening. Patient has no complaints. Previous history of breast cancer at age 36. Mother with post-menopausal breast cancer. COMPARISONS: Comparison is made to exams dated: 12/16/2014, 09/21/2013 [facility], and 02/22/2011 [facility]. BREAST TISSUE:There are scattered fibroglandular densities in both breasts. FINDINGS: There are post operative findings in the right breast. No significant masses, calcifications, or other findings are seen in either breast. There has been no significant interval change. IMPRESSION: BI-RAD 1 NEGATIVE There is no mammographic evidence of malignancy. A 1 year screening mammogram is recommended. The patient has been or will be contacted. The patient will be entered into a reminder system with a target due date of 1 year for her next screening exam. Electronically signed by: Sammy lancaster/mervat:03/09/2016 13:34:43 Undercoater: Margaret YUNG(Nicole)(Mao), [facility] letter sent: Normal Exam Reading location: [facility] BI-RADS: 1 Negative us Sammy Carballo MD IMG MAMMO ORDERABLES Fin al Result from Last 3 Months or Most Recently Relevant to Health Maintenance Care Teams Foot Worker Relationship Specialty Start Date End Date Ruiz Krishna MD [address] [place] [address] PCP - General Internal Medicine 02/10/16
--- OUTSIDE RECORDS SUMMARY | 2025-01-04 13:42 | XMS_ITS | Clinical Summary ---
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 Gender Identity Not on file Sexual Orientation Not on file Plan of Treatment Health Maintenance Due Date Last Done Comments DTAP/TDAP/TD VACCINES (1 - Tdap) 1984 HEPATITIS B VACCINES (1 of 3 - 19+ 3-dose series) 04/1985 CERVICAL CANCER SCREENING 1995 COLORECTAL SCREENING 2010 Colorectal Cancer Screening 2010 FIT-DNA Q 3 years 2010 FIT/FOBT Q 1 year 2010 Flex Sig/CT Colonography Q 5 years 2010 BREAST CANCER SCREENING 01/27/2011 01/27/2010 ZOSTER VACCINE (1 of 2) 2015 INFLUENZA VACCINE (#1) 2024 Procedures Procedure Name Priority Date/Time Associated Diagnosis Comments MAMMO SCREEN BILAT W OR WO CAD Routine 01/27/2010 from Last 3 Months or Most Recently Relevant to Health Maintenance Results * MAMMO DIGITAL SCREEN BILAT (01/27/2010) Anatomical Region Laterality Modality Breast Bilateral Other us Abstract Provider MAMMO ORDERABLES Final Result from Last 3 Months or Most Recently Relevant to Health Maintenance Insurance Care Teams Shipping And Receiving Weigher Relationship Specialty Start Date End Date Ruiz Krishna MD [address] [place] [address] PCP - General 12/11/08
--- OUTSIDE RECORDS SUMMARY | 2025-01-04 13:42 | XMS_ITS | Clinical Summary ---
Author Organization [facility] Address [address] [place] [address] Care Team Providers Care Regulatory And Compliance Technician Name Role Phone Tanya Colin PT Unavailable Unavailable Katty Dowell PT Unavailable Unavailable Jania Johnson MD Primary Care Provider [phone] Allergies Active Allergy Reactions Criticality Noted Date [...] 12/21/2017 Assessment & Plan (12/21/2017 8:48 AM PRODUCE FIELD MERCHANDISER): Obesity is improving with lifestyle modifications. Discussed [...] Date Acute cystitis without hematuria 12/21/2017 01/30/2018 Encounters Date Type Department Care Team Description 12/14/2024 8:55 AM PRODUCE FIELD MERCHANDISER Lab [address] [address] from Last 3 Months Immunizations Immunization Administration Dates Next Due Influenza, Trivalent, IM (MDV) 08/08/2015,2011 Influenza, Unspecified 09/13/2017,07/31/2016 Surgical History Surgery Date Site/Laterality Comments TONSILLECTOMY 10/31/2002 - 10/30/2003 Tonsillectomy BREAST LUMPECTOMY 10/31/2001 - 10/30/2002 Right REDUCTION MAMMAPLASTY 08/31/2016 - 09/29/2016 Left Medical History Medical History Date Comments Arthritis Arthritis Irritable bowel syndrome Irritab le bowel disease History of radiation therapy Malignant neoplasm of male breast (HCC) Cancer, breast Breast cancer (HCC) 2001 right Family History Medical History Relation Name Comments Hypertension Father Hypertension; Other Father Alive and well; Breast cancer Mother Cancer -breast ; Osteoporosis Mother Osteoporosis; Other Mother Alive and well; Breast cancer Other great aunt Relation Name Status Comments Father Alive Mother Alive Other great aunt Alive Social History Tobacco Use Types Packs/Day Years [...] on file Legal Sex Female 4:22 PM PRODUCE FIELD MERCHANDISER Gender Identity Not on file Sexual Orientation Not on file Obstetrics History Para Term AB IAB SAB Ectopic Multiple Livin g Live Births 2 2 2 Date Outcome GA Total Labor Labor/2nd/3rd Weight Sex Type Anes PTL Ashlie A1 A5 Name Clin Term Term Last Filed Vital Signs Vital Sign Reading [...] 06/28/2023 2:11 PM CDT Plan of Treatment Health Maintenance Due Date Last Done Comments Hepatitis C Screening 1965 DTaP/Tdap/Td Vaccine (1 - Tdap) 1976 Hepatitis B Screening 1983 Zoster Vaccine (1 of 2) 2015 Cervical Cancer Screening 06/19/2018 06/19/2017 Breast Cancer Screening-Mammogram 01/12/2019 01/12/2018, 03/09/2016, 03/09/2016, Additional history exists Depression Screening 06/28/2024 06/28/2023, 05/11/2022, 04/14/2018, Additional history exists Regular Well Visit/Exam 18-64 06/28/2024 06/28/2023, 05/11/2022, 12/21/2017 Influenza Vaccine (#1) 2024 7, 07/31/2016, 08/08/2015, Additional history exists Colon Cancer Screening-Colonoscopy 01/13/2028 01/12/2018 Colon Cancer Screening-CT Colonography Discontinued 01/12/2018 Colon Cancer Screening-Sigmoidoscopy Discontinued 01/12/2018 Colon Cancer Screening-DNA Stool Discontinued 07/30/2023, 01/12/2018 Colon Cancer Screening-FIT Discontinued 07/30/2023, Pneumococcal vaccine <65 Aged Out No longer eligible based on patient's age to complete this topic Procedures Procedure Name Priority Date/Time Associated Diagnosis Comments EGFR Routine 12/14/2024 9:12 AM PRODUCE FIELD MERCHANDISER DIFFERENTIAL AUTO Routine 12/14/2024 9:1 2 AM PRODUCE FIELD MERCHANDISER VITAMIN D 25 HYDROXY Routine 12/14/2024 9:12 AM PRODUCE FIELD MERCHANDISER VITAMIN B12 Routine 12/14/2024 9:12 AM PRODUCE FIELD MERCHANDISER T4, FREE Routine 12/14/2024 9:12 AM PRODUCE FIELD MERCHANDISER THYROID FUNCTION CASCADE Routine 12/14/2024 9:12 AM PRODUCE FIELD MERCHANDISER HEMOGLOBIN A1C Routine 12/14/2024 9:12 AM PRODUCE FIELD MERCHANDISER LIPID PANEL Routine 12/14/2024 9:12 AM PRODUCE FIELD MERCHANDISER COMPREHENSIVE METABOLIC PANEL Routine 12/14/2024 9:12 AM PRODUCE FIELD MERCHANDISER CBC WITH AUTO DIFFERENTIAL Routine 12/14/2024 9:12 AM PRODUCE FIELD MERCHANDISER STOOL DNA COLOGUARD Routine 07/30/2023 8:50 AM CDT Colon cancer screening SCREENING MAMMOGRAM BILATERAL W HERBERT Schedule Routine, Read Routine (OP Routine) 01/12/2018 1:35 PM CDT Screening breast examination HM COLONOSCOPY Routine 01/12/2018 HM PAP SMEAR WITH HPV Routine 06/19/2017 from Last 3 Months or Most Recently Relevant to Health Maintenance Results * eGFR (12/14/2024 9:12 AM PRODUCE FIELD MERCHANDISER) eGFR 78 >=60 mL/min/1. 73 m2 Comment: [...] last reviewed 2021. Blood 12/14/2024 9:12 AM PRODUCE FIELD MERCHANDISER 12/14/2024 9:28 AM PRODUCE FIELD MERCHANDISER us Hillary Cordova NP LAB BLOOD ORDERABLES Final Result [facility] ([place]) [address] [facility] [place] [address] * Differential, auto (12/14/2024 9:12 AM PRODUCE FIELD MERCHANDISER) Neutrophil abs 4.0 1.5 - 6.5 K/cumm Imm gran abs 0.0 0.0 - 0.1 K/cumm [facility] ([place]) Lymphocyte abs 2.3 0.8 - 3.3 K/cumm [facility] ([place]) Monocyte abs 0.4 0.2 - 0.8 K/cumm [facility] ([place]) Eosinophil abs 0.1 0.0 - 0.5 K/cumm [facility] ([place]) Basophil abs 0.1 0.0 - 0.1 K/cumm [facility] ([place]) Neutrophil pct 58.7 % [facility] ([place]) Comment: Interpretive [...] revised on 2018. Blood 12/14/2024 9:12 AM PRODUCE FIELD MERCHANDISER 12/14/2024 9:28 AM PRODUCE FIELD MERCHANDISER us Hillary Cordova NP LAB BLOOD ORDERABLES Final Result [facility] ([place]) [address] [facility] Department [place] [address] * Thyroid Function [place] (12/14/2024 9:12 AM PRODUCE FIELD MERCHANDISER) TSH 3.63 0.30 - 4.20 mcIUnit/mL Blood 12/14/2024 9:12 AM PRODUCE FIELD MERCHANDISER 12/14/2024 9:28 AM PRODUCE FIELD MERCHANDISER us Hillary Cordova NP LAB BLOOD ORDERABLES Final Result [facility] ([place]) 1 [facility] [place] [address] * CBC with auto differential (12/14/2024 9:12 AM PRODUCE FIELD MERCHANDISER) WBC 6.8 3.8 - 9.9 K/cumm Hgb [...] [facility] ([place]) Blood 12/14/2024 9:12 AM PRODUCE FIELD MERCHANDISER 12/14/2024 9:28 AM PRODUCE FIELD MERCHANDISER Hillary Cordova NP LAB BLOOD ORDERABLES Final Result [facility] ([place]) [address] [facility] [place] [address] * Vitamin D 25 hydroxy (12/14/2024 9:12 AM PRODUCE FIELD MERCHANDISER) Vitamin D 25-OH 71 30 - 80 ng/mL Blood 12/14/2024 9:12 AM PRODUCE FIELD MERCHANDISER 12/14/2024 9:28 AM PRODUCE FIELD MERCHANDISER Hillary Cordova NP LAB BLOOD ORDERABLES Final Result [facility] [place] 1 [facility] [place] [address] * T4, free (12/14/2024 9:12 AM PRODUCE FIELD MERCHANDISER) [facility] Free T4 1.06 0.90 - 1.70 ng/dL Blood 12/14/2024 9:12 AM PRODUCE FIELD MERCHANDISER 12/14/2024 9:28 AM PRODUCE FIELD MERCHANDISER Hillary Cordova NP LAB BLOOD ORDERABLES Final Result Performing Organization Address [facility] de Phone Number [facility] ([place]) [address] [place] [address] * Hemoglobin A1c (12/14/2024 9:12 AM PRODUCE FIELD MERCHANDISER) [facility] Hgb A1C 5.4 4.0 - 5.6 % Estimated Average Glucose 108 mg/dL [facility] ([place]) Comment: The ADA recommends reporting an estimated Average Glucose (eAG) with all Hemoglobin A1c results using the equation derived from a study of 507 normal and diabetic adults. Minority populations were underrepresented and children were not included. (Diabetes Care 31:5499-5509, 2008). The eAG is not equivalent to a fasting glucose. Blood 12/14/2024 9:12 AM PRODUCE FIELD MERCHANDISER 12/14/2024 9:28 AM PRODUCE FIELD MERCHANDISER Hillary Cordova NP LAB BLOOD ORDERABLES Final Result [facility] ([place]) [address] [place] [address] * Vitamin B12 (12/14/2024 9:12 AM PRODUCE FIELD MERCHANDISER) [facility] Vitamin B12 874 230 - 1,250 pg/mL Blood 12/14/2024 9:12 AM PRODUCE FIELD MERCHANDISER 12/14/2024 9:28 AM PRODUCE FIELD MERCHANDISER us Hillary Cordova NP LAB BLOOD ORDERABLES Final Result [facility] ([place]) 1 [facility] Department [place] [address] * (ABNORMAL) Lipid panel (12/14/2024 9:12 AM PRODUCE FIELD MERCHANDISER) Cholesterol 259(H) 30 - 199 mg/dL Comment: [...] 3. Sanjeev Cavanaugh et al. PROSPER Cardiol. 2020 February 28;5(5):540-548. doi: [email or web address] Current Interpretive Data was [...] [facility] ([place]) Blood 12/14/2024 9:12 AM PRODUCE FIELD MERCHANDISER 12/14/2024 9:28 AM PRODUCE FIELD MERCHANDISER Hillary Cordova NP LAB BLOOD ORDERABLES Final Result [facility] ([place]) [address] [facility] Department [place] [address] * Comprehensive metabolic panel (12/14/2024 9:12 AM PRODUCE FIELD MERCHANDISER) Sodium 141 135 - 145 mmol/L Potassium, [...] [facility] ([place]) Blood 12/14/2024 9:12 AM PRODUCE FIELD MERCHANDISER 12/14/2024 9:28 AM PRODUCE FIELD MERCHANDISER us Hillary J. Art MEDICAL PHYSICIST LAB BLOOD ORDERABLES Final Result [facility] [place]) [address] [facility] Department [place] [address] * Stool DNA - Cologuard (07/30/2023 8:50 AM CDT) Stool DNA - Cologuard Negative Negative clickTRUE (CLIA #:[id number]) Comment: NEGATIVE TEST RESULT. A negative Cologuard [...] screened with both Cologuard and colonoscopy. (Jayla Bennett al, N Engl J Med 2014;370(14):5825-8384) The normal value (reference range) for this assay is negative. COLOGUARD RE-SCREENING RECOMMENDATION: Periodic colorectal cancer screening is an important part of preventive healthcare for asymptomatic individuals at average risk for colorectal cancer. Following a negative Cologuard result, the [place] Cancer Society and U.S. Multi-Society Task Force screening guidelines recommend a Cologuard re-screening interval of 3 years. References: [place] Cancer Society Guideline for Colorectal Cancer Screening: https://www.cancer.org/cancer/uukxv-qrvysb-mdvqdn/riwdqzajy-voyhjurhu-idbuzhy/ac s-rec ommendations.html.; Christiano DK, Kade CR, Kami GutierrezK, Colorectal Cancer Screening: Recommendations for Physicians and Patients from the U.S. Multi-Society Task Force on Colorectal Cancer Screening , Am J Gastroenterology 2017; 112:6868-9051. TEST DESCRIPTION: Composite algorithmic analysis of stool [...] screened with both Cologuard and colonoscopy. (Jayla Bennett al, N Engl J Med 2014;370(14):8648-6674.) Cologuard may produce a false negative or false positive result (no colorectal cancer or precancerous polyp present at colonoscopy follow up). A negative Cologuard test result does not guarantee the absence of CRC or advanced adenoma (pre-cancer). The current Cologuard screening interval is every 3 years. ([place] Cancer Society and U.S. Multi-Society Task Force). Cologuard performance data in a 10,000 patient pivotal study using colonoscopy as the reference method can be accessed at the following location: www.WeShow.Composite Software/results. Additional description of the Cologuard test process, warnings and precautions can be found at www.ThemBidogCitylabsrd.com. Stool 07/30/2023 8:50 AM CDT 08/01/2023 4:12 AM CDT us Jania Johnson MD LAB BODY FLUIDS AND STOOLS O RDERABLES Final Result [facility] (CLIA #:[id number]) [place] [place] [address] * Screening Mammogram Bilateral W Herbert (01/12/2018 [...] Most Recently Relevant to Health Maintenance Insurance [facility] CHOICE PLUS [facility] CHOICE PLUS WORKERS COMPENSATION GENERIC Care Teams Regulatory And Compliance Technician Relationship Specialty Start Date End Date Jania Johnson MD PCP - General Family Practice 05/11/22 Tanya Colin, PT Physical Therapist Physical Therapy 05/09/18 Katty Dowell, PT Physical Therapist Physical Therapy 05/15/18
== END 2025-01-04 13:15 | disposition home or self-care (01) ==
LOC: ANHIMG 13:16
PROVIDERS: PCP Nurse Practitioner; Visit Provider Obstetrics & Gynecology Gynecology
DX: R92.8 Other abnormal and inconclusive findings on diagnostic imaging of breast (principal)
CPT/HCPCS: 76642; 77061; 77065; G0279

== ENCOUNTER 2025-01-11 07:39 | Outpatient (CLI) | payer OTHER, SELFPAY ==
--- NOTE | ~2025-01-11 | MMUS_ITS ---
EXAMINATION: US breast biopsy LT w image, MM post biopsy diagnostic LT DATE: 01/11/2025 08:47 (accession [id number]), 01/11/2025 08:44 (accession [id number]) INDICATION: 59-year-old woman with a personal history of right-sided triple negative breast cancer in 2006 at age 40 (BRCA negative), post right-sided lumpectomy who underwent left breast reduction mamm oplasty in 2016, presents for diagnostic evaluation of a focus of architectural distortion within th e left breast. BREAST PARENCHYMAL COMPOSITION:The breast is heterogeneously dense, which may obscure small masses. TECHNIQUE: The procedure including the risks, benefits, and alternatives was discussed with the patie nt. Risks discussed included bleeding and infection. The patient understood the risks and agreed to proceed. The skin overlying the left breast was prepped and draped in usual sterile fashion. Anesthetic was a dministered with 1% lidocaine subcutaneously. Limited ultrasound examination of the left breast was then again performed. At the 1:00 position of the left breast approximately 2 cm from the nipple is an irregular shadowing focus with angular margins, suitable for biopsy. A 10 G introducer and vacuum assisted breast biopsy device was placed using ultrasound guidance [facility] tly beneath the abnormality at the 1:00 position of the left breast, and multiple vacuum-assisted spe cimens were obtained. Once the abnormality was no longer visualized, the biopsy device was then remov ed, and through the introducer, a BUTTERFLY marker was placed. All devices within removed. The entry site was cleaned and dressed with Steri-Strips, and an additional sterile dressing was appl ied. There were no immediate complications. Post biopsy mammography was then performed in both the CC and ML positions demonstrating a butterfly microclip in the upper outer quadrant of the left breast without a significant perilesional hematoma. IMPRESSION: Technically successful ultrasound-guided vacuum-assisted core biopsy of the mammographic/tomographic and sonographic abnormality at the 1:00 position of the left breast with post procedure mammogram for marker placement documentation. Pathology pending Reviewed, dictated and finalized at location A. IMPRESSION: Technically successful ultrasound-guided vacuum-assisted core biopsy of the marie mographic/tomographic and sonographic abnormality at the 1:00 position of the l eft breast with post procedure mammogram for marker placement documentation. Pathology pending
--- OUTSIDE RECORDS SUMMARY | 2025-01-11 07:43 | XMS_ITS | Encounter Summary ---
Author Organization [facility] Address [address] [place] [address] Care Team Providers Care Blueprint Maker Name Role Phone Ruiz Krishna MD Primary Care Provider [phone] Encounter Details Date Type Department Care Team (Latest Contact Info) Description 12/11/2008 Outpatient Historical [facility] [place] [address] [place] [id number] Xiomara Guerra MD NO ADDRESS ON FILE Malignant Neoplasm of Upper-Inner Quadrant of Female Breast (CMS/HCC) Social History Tobacco Use Types Packs/Day Years Used Date Smoking Tobacco: Never Assessed Comments Unknown Sex and Gender Information Value Date Recorded Sex Assigned at Not on file Legal Sex Female 5:41 AM BEER COIL CLEANER Gender Identity Not on file Sexual Orientation Not on file documented as of this encounter Plan of Treatment Not on file documented as of this encounter Visit Diagnoses Diagnosis Malignant neoplasm of upper-inner quadrant of female breast (CMS/HCC) Malignant neoplasm of upper-inner quadrant of female breast documented in this encounter Care Teams Blueprint Maker Relationship Specialty Start Date End Date Ruiz Krishna MD [address] [facility] [place] [phone] PCP - General 12/11/08 documented as of this encounter
--- OUTSIDE RECORDS SUMMARY | 2025-01-11 07:43 | XMS_ITS | Encounter Summary ---
Author Organization [facility] Address 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) Social History Tobacco Use Types Packs/Day Years Used Date Smoking Tobacco: Never Assessed Comments Unknown Sex and Gender Information Value Date Recorded Sex Assigned at Not on file Legal Sex Female 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 [place] [phone] PCP - General 12/11/08 documented as of this encounter
--- OUTSIDE RECORDS SUMMARY | 2025-01-11 07:43 | XMS_ITS | Clinical Summary ---
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
--- OUTSIDE RECORDS SUMMARY | 2025-01-11 07:43 | XMS_ITS | Clinical Summary ---
Author Organization [facility] Address [address] [place] [address] Phone Care Team Providers Care Media Librarian Name Role Phone Ruiz Krishna MD Primary Care Provider [phone] Family History Medical History Relation Name Comments [...] general adult medical examination w/o abnormal findings [facility] SCREENING BILATERAL DIGITAL W CAD Routine 03/09/2016 12:04 PM CDT Visit for screening mammogram from Last 3 Months or Most Recently Relevant to Health Maintenance Results * HEPATITIS C ANTIBODY (02/10/2017 11:11 AM CDT) hepatitis C antibody 0.07 <1 S/CO 02/10/2017 11:19 PM CDT [facility] Comment: Signal/Cutoff ratio < 0.79 is Nondetected Signal/Cutoff ratio 0.80-0.99 is Grayzone Signal/Cutoff ratio > 0.99 is Detected Supplemental assays are recommended if signal/cutoff ratio is >/=1.00. Signal/cutoff ratio result >/= 5.00 is 97% predictive of positivity for recombinant immunoblot assay (RIBA) and will be reported to the [place] Department of Public Health as required. Blood specimen (specimen) Venipuncture / Unknown 02/10/2017 11:11 AM CDT 02/10/2017 2:18 PM CDT us Ruiz Krishna MD CHEMISTRY ORDERABLES Final Resul t [facility] [address] [place] [address], * [place] SCREENING BILATERAL DIGITAL W CAD [...] is made to exams dated: 12/16/2014, 09/21/2013 [facility], and 02/22/2011 [facility]. BREAST TISSUE:There are scattered fibroglandular densities in [...] exam. Electronically signed by: Sammy lancaster/mervat:03/09/2016 13:34:43 Lock Stitch Channeler: Margaret YUNG(Nicole)(Mao), [facility] letter sent: Normal Exam Reading location: [facility] BI-RADS: 1 Negative Procedure Note Sammy Carballo [...] is made to exams dated: 12/16/2014, 09/21/2013 [facility], and 02/22/2011 [facility]. BREAST TISSUE:There are scattered fibroglandular densities in [...] exam. Electronically signed by: Sammy lancaster/mervat:03/09/2016 13:34:43 Lock Stitch Channeler: Margaret YUNG(Nicole)(Mao), [facility] letter sent: Normal Exam Reading location: [facility] BI-RADS: 1 Negative us Sammy Carballo MD IMG MAMMO ORDERABLES Fin al Result from Last 3 Months or Most Recently Relevant to Health Maintenance Care Teams Media Librarian Relationship Specialty Start Date End Date Ruiz Krishna MD [address] [place] [address] PCP - General Internal Medicine 02/10/16
== END 2025-01-11 07:40 | disposition home or self-care (01) ==
PROVIDERS: PCP Nurse Practitioner; Visit Provider Surgery
DX: N63.21 Unspecified lump in the left breast, upper outer quadrant (principal); R92.8 Other abnormal and inconclusive findings on diagnostic imaging of breast; Z86.000 Personal history of in-situ neoplasm of breast
CPT/HCPCS: 19083; 77065; 88305; A4648

== ENCOUNTER 2025-01-29 13:22 | Outpatient (CLI) | payer OTHER, SELFPAY ==
--- NOTE | ~2025-01-29 | MR_ITS ---
EXAMINATION: MR breast BI wo/w con INDICATION: Lobular carcinoma detected on recent biopsy of the left breast. Personal history of ductal carcinoma in situ of the right breast, diagnosed in 2000. TECHNIQUE: Axial VIBRANT pre and dynamic post contrast, Sagittal VIBRANT post contrast, Axial T2 STIR ASSET COMPARISON: Reference is made to multiple mammograms performed most recently on 12/17/2024 and dating back to 04/15/2021. CONTRAST: ProHance, 17 cc BREAST COMPOSITION: Scattered fibroglandular tissue FINDINGS: LEFT BREAST: There is minimal background parenchymal enhancement. Post biopsy change is present within the left breast, approximately 3 to 4 cm from the nipple, consis tent with patient's history. Within the upper outer left breast are 2 subcentimeter foci of abnormal enhancement kinetics which ma y correspond to nonpathologically enlarged but morphologically suspicious lymph nodes. The first measures 5.1 mm and is located 12 cm from the nipple. The second measures 6.2 mm, and is located 16 cm from the nipple. Second look ultrasound is suggested to determine the morphology of these foci (as sentinel lymph node biopsy will be performed at the time of surgery, regardless). No additional abnormal contrast enhancement or suspicious enhancement kinetics is identified within t he remainder of the left breast. No discrete internal mammary lymph nodes are seen. RIGHT BREAST: There is minimal background parenchymal enhancement. No abnormal enhancement is present after contrast administration. Metallic clip artifact is identified, consistent with patient's prior intervention. No pathologically enlarged axillary or internal mammary lymph nodes are identified. IMPRESSION: Two separate foci of abnormal enhancement kinetics are identified within the upper outer posterior le ft breast, possibly representing reactive lymph nodes for which second look ultrasound is suggested t o confirm their morphology. If second look ultrasound demonstrates lymph node morphology, would defer biopsy until surgical intervention as sentinel lymph node biopsy will be performed, regardless. If second look ultrasound does not demonstrate lymph nodes in these areas (as described above) tissue sampling is recommended. No abnormal contrast enhancement is identified within the right breast. BI-RADS Category 0: Incomplete: Needs additional imaging evaluation. Reviewed, dictated and finalized at location A. IMPRESSION: Two separate foci of abnormal enhancement kinetics are identified within the up per outer posterior left breast, possibly representing reactive lymph nodes for which second look ultrasound is suggested to confirm their morphology. If seco nd look ultrasound demonstrates lymph node morphology, would defer biopsy until surgical intervention as sentinel lymph node biopsy will be performed, regardl ess. If second look ultrasound does not demonstrate lymph nodes in these areas (as d escribed above) tissue sampling is recommended. No abnormal contrast enhancement is identified within the right breast. BI-RADS Category 0: Incomplete: Needs additional imaging evaluation.
--- OUTSIDE RECORDS SUMMARY | 2025-01-29 14:30 | XMS_ITS | Referral Summary ---
Author Organization [facility] Address [address] [place] [address] Care Team Providers Care Member Of Parliament Name Role Phone Tanya Colin PT Unavailable Unavailable Katty Dowell PT Unavailable Unavailable Jania Johnson MD Primary Care Provider [phone] Encounters Date Type Department Care Team Description 12/14/2024 8:55 AM HALF SOLE FITTER Lab [address] [address] from Last 3 Months Allergies Active Allergy [...] 12/21/2017 Assessment & Plan (12/21/2017 8:48 AM HALF SOLE FITTER): Obesity is improving with lifestyle modifications. Discussed [...] on file Legal Sex Female 4:22 PM HALF SOLE FITTER Gender Identity Not on file Sexual Orientation [...] Diagnosis Comments EGFR Routine 12/14/2024 9:12 AM HALF SOLE FITTER DIFFERENTIAL AUTO Routine 12/14/2024 9:1 2 AM HALF SOLE FITTER VITAMIN D 25 HYDROXY Routine 12/14/2024 9:12 AM HALF SOLE FITTER VITAMIN B12 Routine 12/14/2024 9:12 AM HALF SOLE FITTER T4, FREE Routine 12/14/2024 9:12 AM HALF SOLE FITTER THYROID FUNCTION CASCADE Routine 12/14/2024 9:12 AM HALF SOLE FITTER HEMOGLOBIN A1C Routine 12/14/2024 9:12 AM HALF SOLE FITTER LIPID PANEL Routine 12/14/2024 9:12 AM HALF SOLE FITTER COMPREHENSIVE METABOLIC PANEL Routine 12/14/2024 9:12 AM HALF SOLE FITTER CBC WITH AUTO DIFFERENTIAL Routine 12/14/2024 9:12 AM HALF SOLE FITTER STOOL DNA COLOGUARD Routine 07/30/2023 8:50 AM CDT Colon cancer screening SCREENING MAMMOGRAM BILATERAL W HERBERT Schedule Routine, Read Routine (OP Routine) 01/12/2018 1:35 PM CDT Screening breast examination HM COLONOSCOPY Routine 01/12/2018 HM PAP SMEAR WITH HPV Routine 06/19/2017 from Last 3 Months or Most Recently Relevant to Health Maintenance Results * eGFR (12/14/2024 9:12 AM HALF SOLE FITTER) eGFR 78 >=60 mL/min/1. 73 m2 Comment: [...] last reviewed 2021. Blood 12/14/2024 9:12 AM HALF SOLE FITTER 12/14/2024 9:28 AM HALF SOLE FITTER us Hillary Cordova NP LAB BLOOD ORDERABLES Final Result [facility] ([place]) [address] [facility] [place] [address] * Differential, auto (12/14/2024 9:12 AM HALF SOLE FITTER) Pathologist [facility] Neutrophil abs 4.0 1.5 - 6.5 K/cumm Imm gran abs 0.0 0.0 - 0.1 K/cumm [facility] ([place]) Lymphocyte abs 2.3 0.8 - 3.3 K/cumm [facility] ([place]) Monocyte abs 0.4 0.2 - 0.8 K/cumm [facility] ([place]) Eosinophil abs 0.1 0.0 - 0.5 K/cumm [facility] ([place]) Basophil abs 0.1 0.0 - 0.1 K/cumm [facility] ([place]) Neutrophil pct 58.7 % [facility] ([place]) Comment: Interpretive Data Percent cell count reference [...] revised on 2018. Blood 12/14/2024 9:12 AM HALF SOLE FITTER 12/14/2024 9:28 AM HALF SOLE FITTER Hillary Cordova TAR POT WORKER LAB BLOOD ORDERABLES Final Result RIGOBERTO EDIE ([place]) [address] [facility] Department of Laboratories [place], [place] [id number] * Thyroid Function [place] (12/14/2024 9:12 AM HALF SOLE FITTER) TSH 3.63 0.30 - 4.20 mcIUnit/mL Blood 12/14/2024 9:12 AM HALF SOLE FITTER 12/14/2024 9:28 AM HALF SOLE FITTER Hillary Cordova TAR POT WORKER LAB BLOOD ORDERABLES Final Result [facility] ([place]) [address] [facility] [place] [address] * CBC with auto differential (12/14/2024 9:12 AM HALF SOLE FITTER) WBC 6.8 3.8 - 9.9 K/cumm Hgb [...] [facility] ([place]) Blood 12/14/2024 9:12 AM HALF SOLE FITTER 12/14/2024 9:28 AM HALF SOLE FITTER Hillary Cordova NP LAB BLOOD ORDERABLES Final Result RIGOBERTO IRIZARRY ([place]) 1 [facility] [place] [address] * Vitamin D 25 hydroxy (12/14/2024 9:12 AM HALF SOLE FITTER) Vitamin D 25-OH 71 30 - 80 ng/mL Blood 12/14/2024 9:12 AM HALF SOLE FITTER 12/14/2024 9:28 AM HALF SOLE FITTER Hillary Cordova NP LAB BLOOD ORDERABLES Final Result Performing Organization Address City/[facility] Co de Phone Number RIGOBERTO [place]) [address] [place] [address] * T4, free (12/14/2024 9:12 AM HALF SOLE FITTER) [facility] Free T4 1.06 0.90 - 1.70 ng/dL Blood 12/14/2024 9:12 AM HALF SOLE FITTER 12/14/2024 9:28 AM HALF SOLE FITTER Hillary Cordova NP LAB BLOOD ORDERABLES Final Result Performing Organization Address [facility] de Phone Number RIGOBERTO IRIZARRY ([place]) [address] [place] [address] * Hemoglobin A1c (12/14/2024 9:12 AM HALF SOLE FITTER) [facility] Hgb A1C 5.4 4.0 - 5.6 % Estimated Average Glucose 108 mg/dL RIGOBERTO IRIZARRY ([place]) Comment: The ADA recommends reporting an estimated Average Glucose (eAG) with all Hemoglobin A1c results using the equation derived from a study of 507 normal and diabetic adults. Minority populations were underrepresented and children were not included. (Diabetes Care 31:4738-8190, 2008). The eAG is not equivalent to a fasting glucose. Blood 12/14/2024 9:12 AM HALF SOLE FITTER 12/14/2024 9:28 AM HALF SOLE FITTER Hillary Cordova NP LAB BLOOD ORDERABLES Final Result Performing Organization Address [facility] Co de Phone Number RIGOBERTO IRIZARRY ([place]) [address] [place] [address] * Vitamin B12 (12/14/2024 9:12 AM HALF SOLE FITTER) [facility] Vitamin B12 874 230 - 1,250 pg/mL Blood 12/14/2024 9:12 AM HALF SOLE FITTER 12/14/2024 9:28 AM HALF SOLE FITTER us Hillary Cordova NP LAB BLOOD ORDERABLES Final Result RIGOBERTO IRIZARRY ([place]) 1 [facility] [place] [address] * (ABNORMAL) Lipid panel (12/14/2024 9:12 AM HALF SOLE FITTER) Cholesterol 259(H) 30 - 199 mg/dL Comment: [...] MARLENE IRIZARRY ([place]) Blood 12/14/2024 9:12 AM HALF SOLE FITTER 12/14/2024 9:28 AM HALF SOLE FITTER Hillary Cordova NP LAB BLOOD ORDERABLES Final Result [facility] ([place]) 1 [facility] [place] [address] * Comprehensive metabolic panel (12/14/2024 9:12 AM HALF SOLE FITTER) Sodium 141 135 - 145 mmol/L Potassium, [...] [facility] ([place]) Blood 12/14/2024 9:12 AM HALF SOLE FITTER 12/14/2024 9:28 AM HALF SOLE FITTER Hillary Cordova NP LAB BLOOD ORDERABLES Final Result RIGOBERTO IRIZARRY [place]) [facility] Department of Laboratories [place], [place] [id number] * Stool DNA - Cologuard (07/30/2023 8:50 AM CDT) Stool DNA - Cologuard Negative Negative [employer] (CLIA #:[id number]) Comment: NEGATIVE TEST RESULT. A negative Cologuard [...] Randall. et al, N Engl J Med 2014;370(14):2653-2959) The normal value (reference range) for this assay is negative. COLOGUARD RE-SCREENING RECOMMENDATION: Periodic colorectal cancer screening is an important part of preventive healthcare for asymptomatic individuals at average risk for colorectal cancer. Following a negative Cologuard result, the [place] Cancer Society and U.S. Multi-Society Task Force screening guidelines recommend a Cologuard re-screening interval of 3 years. References: [place] Cancer Society Guideline for Colorectal Cancer Screening: https://www.cancer.org/cancer/bsfpu-lxrbks-zkctqm/npjszpdmu-nuepuaebj-lnsanlj/ac s-rec ommendations.html.; Christiano DK, Kade CR, Kami GutierrezK, Colorectal Cancer Screening: Recommendations for Physicians and Patients from the U.S. Multi-Society Task Force on Colorectal Cancer Screening , Am J Gastroenterology 2017; 112:5494-9054. TEST DESCRIPTION: Composite algorithmic analysis of stool [...] Jurado et al, N Engl J Med 2014;370(14):2857-8554.) Cologuard may produce a false negative or false positive result (no colorectal cancer or precancerous polyp present at colonoscopy follow up). A negative Cologuard test result does not guarantee the absence of CRC or advanced adenoma (pre-cancer). The current Cologuard screening interval is every 3 years. ([place] Cancer Society and U.S. Multi-Society Task Force). Cologuard performance data in a 10,000 patient pivotal study using colonoscopy as the reference method can be accessed at the following location: www.[employer]/results. Additional description of the Cologuard test process, warnings and precautions can be found at www.[employer].com. Stool 07/30/2023 8:50 AM CDT 08/01/2023 4:12 AM CDT us Jania Johnson MD LAB BODY FLUIDS AND STOOLS O RDERABLES Final Result [facility] (CLIA #:[id number]) [place] [address] * Screening Mammogram Bilateral W Herbert (01/12/2018 [...] Most Recently Relevant to Health Maintenance Insurance [facility] [employer] [facility] [facility]/PPO Address: [address] [address] [place] [address] [facility] [employer] [facility] [facility]/PPO Address: [address] [place] [address] WORK[employer] COMPENSATION GENERIC Care Teams Member Of Parliament Relationship Specialty Start Date End Date Jania Johnson MD PCP - General Family Practice 05/11/22 Tanya Colin, PT Physical Therapist Physical Therapy 05/09/18 Katty Dowell PT Physical Therapist Physical Therapy 05/15/18
--- OUTSIDE RECORDS SUMMARY | 2025-01-29 14:31 | XMS_ITS | Clinical Summary ---
Author Organization [facility] Address [address] [place] [address] Phone Care Team Providers Care Account Underwriter Name Role Phone Ruiz Krishna MD Primary Care Provider [phone] Family History Medical History Relation Name Comments [...] general adult medical examination w/o abnormal findings [facility] SCREENING BILATERAL DIGITAL W CAD Routine 03/09/2016 12:04 PM CDT Visit for screening mammogram from Last 3 Months or Most Recently Relevant to Health Maintenance Results * HEPATITIS C ANTIBODY (02/10/2017 11:11 AM CDT) hepatitis C antibody 0.07 <1 S/CO 02/10/2017 11:19 PM CDT [facility] Comment: Signal/Cutoff ratio < 0.79 is Nondetected Signal/Cutoff ratio 0.80-0.99 is Grayzone Signal/Cutoff ratio > 0.99 is Detected Supplemental assays are recommended if signal/cutoff ratio is >/=1.00. Signal/cutoff ratio result >/= 5.00 is 97% predictive of positivity for recombinant immunoblot assay (RIBA) and will be reported to the [place] Department of Public Health as required. Blood specimen (specimen) Venipuncture / Unknown 02/10/2017 11:11 AM CDT 02/10/2017 2:18 PM CDT us Ruiz Krishna MD CHEMISTRY ORDERABLES Final Resul t [facility] [address] [place] [address], * QUIN[place] SCREENING BILATERAL DIGITAL W CAD [...] is made to exams dated: 12/16/2014, 09/21/2013 [facility], and 02/22/2011 [facility]. BREAST TISSUE:There are scattered fibroglandular densities [...] exam. Electronically signed by: Sammy lancaster/mervat:03/09/2016 13:34:43 Tobacco Packer: Margaret YUNG(Nicole)(Mao), [facility] letter sent: Normal Exam Reading location: [facility] BI-RADS: 1 Negative Procedure Note Sammy Carballo [...] is made to exams dated: 12/16/2014, 09/21/2013 [facility], and 02/22/2011 [facility]. BREAST TISSUE:There are scattered fibroglandular densities [...] exam. Electronically signed by: Sammy lancaster/mervat:03/09/2016 13:34:43 Tobacco Packer: Margaret YUNG(Nicole)(Mao), [facility] letter sent: Normal Exam Reading location: [facility] BI-RADS: 1 Negative us Sammy Carballo MD IMG MAMMO ORDERABLES Fin al Result from Last 3 Months or Most Recently Relevant to Health Maintenance Care Teams Account Underwriter Relationship Specialty Start Date End Date Ruiz Krishna MD [address] [place] [address] PCP - General Internal Medicine 02/10/16
--- OUTSIDE RECORDS SUMMARY | 2025-01-29 14:31 | XMS_ITS | Encounter Summary ---
Author Organization [facility] Address [address] [place] [address] Care Team Providers Care Manager Park Name Role Phone Ruiz Krishna MD Primary Care Provider Encounter Details Date Type Department Care Team (Latest Contact Info) Description 01/12/2009 Outpatient Historical [facility] Radiation Oncology [place] [address] [place] [id number] Xiomara Guerra MD NO ADDRESS ON FILE Malignant Neoplasm of Upper-Inner Quadrant of Female Breast (CMS/HCC) Social History Tobacco Use Types Packs/Day Years Used Date Smoking Tobacco: Never Assessed Comments Unknown Sex and Gender Information Value Date Recorded Sex Assigned at Not on file Legal Sex Female 5: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 Gender Identity Not on file Sexual Orientation Not on file documented as of this encounter Plan of Treatment Upcoming Encounters Date Type Department Care Team (Late st Contact Info) Description 02/07/2025 3:00 PM CDT Office Visit [facility] Oncology and Hematology - Colin [address] [facility] [address] [place] [address] Rg Potter MD [address] [facility] [address] [place] [address] documented as of this encounter Visit Diagnoses Diagnosis Malignant neoplasm of upper-inner quadrant of female breast (CMS/HCC) Malignant neoplasm of upper-inner quadrant of female breast documented in this encounter Care Teams Manager Park Relationship Specialty Start Date End Date Ruiz Krishna MD [address] [place] [address] PCP - General 12/11/08 documented as of this encounter
--- OUTSIDE RECORDS SUMMARY | 2025-01-29 14:31 | XMS_ITS | Clinical Summary ---
Author Organization [facility] Address [address] [place] [address] Care Team Providers Care Cap Sewer Name Role Phone Tanya Colin PT Unavailable Unavailable Katty Dowell PT Unavailable Unavailable Jania Johnson MD Primary Care Provider Allergies Active Allergy Reactions Criticality Noted Date [...] 12/21/2017 Assessment & Plan (12/21/2017 8:48 AM WAFER POLISHING LEAD WORKER): Obesity is improving with lifestyle modifications. [...] Department Care Team Description 12/14/2024 8:55 AM WAFER POLISHING LEAD WORKER Lab [address] [address] from Last 3 Months Immunizations Immunization Administration [...] on file Legal Sex Female 4:22 PM WAFER POLISHING LEAD WORKER Gender Identity Not on file Sexual [...] Diagnosis Comments EGFR Routine 12/14/2024 9:12 AM WAFER POLISHING LEAD WORKER DIFFERENTIAL AUTO Routine 12/14/2024 9:1 2 AM WAFER POLISHING LEAD WORKER VITAMIN D 25 HYDROXY Routine 12/14/2024 9:12 AM WAFER POLISHING LEAD WORKER VITAMIN B12 Routine 12/14/2024 9:12 AM WAFER POLISHING LEAD WORKER T4, FREE Routine 12/14/2024 9:12 AM WAFER POLISHING LEAD WORKER THYROID FUNCTION CASCADE Routine 12/14/2024 9:12 AM WAFER POLISHING LEAD WORKER HEMOGLOBIN A1C Routine 12/14/2024 9:12 AM WAFER POLISHING LEAD WORKER LIPID PANEL Routine 12/14/2024 9:12 AM WAFER POLISHING LEAD WORKER COMPREHENSIVE METABOLIC PANEL Routine 12/14/2024 9:12 AM WAFER POLISHING LEAD WORKER CBC WITH AUTO DIFFERENTIAL Routine 12/14/2024 9:12 AM WAFER POLISHING LEAD WORKER STOOL DNA COLOGUARD Routine 07/30/2023 8:50 AM CDT Colon cancer screening SCREENING MAMMOGRAM BILATERAL W HERBERT Schedule Routine, Read Routine (OP Routine) 01/12/2018 1:35 PM CDT Screening breast examination HM COLONOSCOPY Routine 01/12/2018 HM PAP SMEAR WITH HPV Routine 06/19/2017 from Last 3 Months or Most Recently Relevant to Health Maintenance Results * eGFR (12/14/2024 9:12 AM WAFER POLISHING LEAD WORKER) eGFR 78 >=60 mL/min/1. 73 m2 [...] last reviewed 2021. Blood 12/14/2024 9:12 AM WAFER POLISHING LEAD WORKER 12/14/2024 9:28 AM WAFER POLISHING LEAD WORKER us Hillary Cordova NP LAB BLOOD ORDERABLES Final Result [facility] ([place]) 1 [facility] Department [place] [address] * Differential, auto (12/14/2024 9:12 AM WAFER POLISHING LEAD WORKER) Neutrophil abs 4.0 1.5 - 6.5 K/cumm [...] revised on 2018. Blood 12/14/2024 9:12 AM WAFER POLISHING LEAD WORKER 12/14/2024 9:28 AM WAFER POLISHING LEAD WORKER us Hillary Codrova NP LAB BLOOD ORDERABLES Final Result [facility] ([place]) 1 [facility] Department [place] [address] * Thyroid Function [place] (12/14/2024 9:12 AM WAFER POLISHING LEAD WORKER) TSH 3.63 0.30 - 4.20 mcIUnit/mL Blood 12/14/2024 9:12 AM WAFER POLISHING LEAD WORKER 12/14/2024 9:28 AM WAFER POLISHING LEAD WORKER us Hillary Cordova NP LAB BLOOD ORDERABLES Final Result [facility] ([place]) 1 [facility] [place] [address] * CBC with auto differential (12/14/2024 9:12 AM WAFER POLISHING LEAD WORKER) WBC 6.8 3.8 - 9.9 K/cumm [...] [facility] ([place]) Blood 12/14/2024 9:12 AM WAFER POLISHING LEAD WORKER 12/14/2024 9:28 AM WAFER POLISHING LEAD WORKER Hillary Cordova NP LAB BLOOD ORDERABLES Final Result [facility] ([place]) 1 [facility] [place] [address] * Vitamin D 25 hydroxy (12/14/2024 9:12 AM WAFER POLISHING LEAD WORKER) Vitamin D 25-OH 71 30 - 80 ng/mL Blood 12/14/2024 9:12 AM WAFER POLISHING LEAD WORKER 12/14/2024 9:28 AM WAFER POLISHING LEAD WORKER Hillary Cordova NP LAB BLOOD ORDERABLES Final Result [facility] 1 [facility] [place] [address] * T4, free (12/14/2024 9:12 AM WAFER POLISHING LEAD WORKER) [facility] Free T4 1.06 0.90 - 1.70 ng/dL Blood 12/14/2024 9:12 AM WAFER POLISHING LEAD WORKER 12/14/2024 9:28 AM WAFER POLISHING LEAD WORKER Hillary Cordova NP LAB BLOOD ORDERABLES Final Result Performing Organization Address [facility] de Phone Number [facility] ([place]) [address] [place] [address] * Hemoglobin A1c (12/14/2024 9:12 AM WAFER POLISHING LEAD WORKER) [facility] Hgb A1C 5.4 4.0 - 5.6 % Estimated Average Glucose 108 mg/dL [facility] ([place]) Comment: The ADA recommends reporting an estimated Average Glucose (eAG) with all Hemoglobin A1c results using the equation derived from a study of 507 normal and diabetic adults. Minority populations were underrepresented and children were not included. (Diabetes Care 31:7225-5059, 2008). The eAG is not equivalent to a fasting glucose. Blood 12/14/2024 9:12 AM WAFER POLISHING LEAD WORKER 12/14/2024 9:28 AM WAFER POLISHING LEAD WORKER Hillary Cordova NP LAB BLOOD ORDERABLES Final Result [facility] ([place]) [address] [place] [address] * Vitamin B12 (12/14/2024 9:12 AM WAFER POLISHING LEAD WORKER) [facility] Vitamin B12 874 230 - 1,250 pg/mL Blood 12/14/2024 9:12 AM WAFER POLISHING LEAD WORKER 12/14/2024 9:28 AM WAFER POLISHING LEAD WORKER us Hillary Cordova NP LAB BLOOD ORDERABLES Final Result [facility] ([place]) 1 [facility] Department [place] [address] * (ABNORMAL) Lipid panel (12/14/2024 9:12 AM WAFER POLISHING LEAD WORKER) Cholesterol 259(H) 30 - 199 mg/dL [...] [facility] ([place]) Blood 12/14/2024 9:12 AM WAFER POLISHING LEAD WORKER 12/14/2024 9:28 AM WAFER POLISHING LEAD WORKER Hillary Cordova NP LAB BLOOD ORDERABLES Final Result [facility] ([place]) 1 [facility] Department [place] [address] * Comprehensive metabolic panel (12/14/2024 9:12 AM WAFER POLISHING LEAD WORKER) Sodium 141 135 - 145 mmol/L [...] [facility] ([place]) Blood 12/14/2024 9:12 AM WAFER POLISHING LEAD WORKER 12/14/2024 9:28 AM WAFER POLISHING LEAD WORKER us Hillary J. Art HOT TOP LINER LAB BLOOD ORDERABLES Final Result [facility] [place]) 1 [facility] Department [place] [address] * Stool DNA - Cologuard (07/30/2023 8:50 AM CDT) Stool DNA - Cologuard Negative Negative [facility] (CLIA #:[id number]) Comment: NEGATIVE TEST RESULT. A negative Cologuard [...] (Jayla Bennett al, N Engl J Med 2014;370(14):7101-6442) The normal value (reference range) for this assay is negative. COLOGUARD RE-SCREENING RECOMMENDATION: Periodic colorectal cancer screening is an important part of preventive healthcare for asymptomatic individuals at average risk for colorectal cancer. Following a negative Cologuard result, the [place] Cancer Society and U.S. Multi-Society Task Force screening guidelines recommend a Cologuard re-screening interval of 3 years. References: [place] [employer] Society Guideline for Colorectal Cancer Screening: https://www.cancer.org/cancer/fuzkq-rehpeo-tutkrp/vpcngtsuf-xojejdbnh-umvoxko/ac s-rec ommendations.html.; Christiano DK, Kade CR, Kami GutierrezK, Colorectal Cancer Screening: Recommendations for Physicians and Patients from the U.S. Multi-Society Task Force on Colorectal Cancer Screening , Am J Gastroenterology 2017; 112:4085-0345. TEST DESCRIPTION: Composite algorithmic analysis of stool [...] (Jayla Bennett al, N Engl J Med 2014;370(14):4245-9887.) Cologuard may produce a false negative or false positive result (no colorectal cancer or precancerous polyp present at colonoscopy follow up). A negative Cologuard test result does not guarantee the absence of CRC or advanced adenoma (pre-cancer). The current Cologuard screening interval is every 3 years. ([place] [employer] Society and U.S. Multi-Society Task Force). Cologuard performance data in a 10,000 patient pivotal study using colonoscopy as the reference method can be accessed at the following location: www.Unidesk.Tacatì/results. Additional description of the Cologuard test process, warnings and precautions can be found at www.GenomeraogKOTURArd.com. Stool 07/30/2023 8:50 AM CDT 08/01/2023 4:12 AM CDT us Jania Johnson MD LAB BODY FLUIDS AND STOOLS O RDERABLES Final Result [facility] (CLIA #:[id number]) [place] [address] [place] [address] * Screening Mammogram Bilateral W Herbert (01/12/2018 [...] Most Recently Relevant to Health Maintenance Insurance [facility] Address: [address] [place] [address] [facility]/PPO Address: [place] [address] WORKERS COMPENSATION GENERIC Care Teams Cap Sewer Relationship Specialty Start Date End Date Jania Johnson MD PCP - General Family Practice 05/11/22 Tanya Colin, PT Physical Therapist Physical Therapy 05/09/18 Katty Dowell, PT Physical Therapist Physical Therapy 05/15/18
--- OUTSIDE RECORDS SUMMARY | 2025-01-29 14:31 | XMS_ITS | Clinical Summary ---
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 Gender Identity Not on file Sexual Orientation Not on file Plan of Treatment Upcoming Encounters Date Type Department Care Team (Late st Contact Info) Description 02/07/2025 3:00 PM CDT Office Visit [facility] Oncology and Hematology - Colin [address] [place] [address] [facility] [address] [place] [address] Rg Potter MD [address] [facility] [address] [place] [address] Health Maintenance Due Date Last Done Comments DTAP/TDAP/TD VACCINES (1 - Tdap) 1984 HEPATITIS B VACCINES (1 of 3 - 19+ 3-dose series) 04/1985 PAP SMEAR 1986 CERVICAL CANCER SCREENING 1995 HPV/Cotest (30-65) 1995 PAP SMEAR 1995 COLORECTAL SCREENING 2010 Colorectal Cancer Screening [...] Relevant to Health Maintenance Insurance Care Teams Obstetrics Nurse Relationship Specialty Start Date End Date Ruiz Krishna MD [address] [place] [address] PCP - General 12/11/08
--- OUTSIDE RECORDS SUMMARY | 2025-01-29 14:31 | XMS_ITS | Encounter Summary ---
Author Organization [facility] Address [address] [place] [address] Care Team Providers Care Watch Supervisor Name Role Phone Ruiz Krishna MD Primary Care Provider Encounter Details Date Type Department Care Team (Latest Contact Info) Description 12/11/2008 Outpatient Historical [facility] Radiation Oncology [place] [address] [place] [phone] Xiomara Guerra MD NO ADDRESS ON FILE Malignant Neoplasm of Upper-Inner Quadrant of Female Breast (CMS/HCC) Social History Tobacco Use Types Packs/Day Years Used Date Smoking Tobacco: Never Assessed Comments Unknown Sex and Gender Information Value Date Recorded Sex Assigned at Not on file 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 Gender Identity Not on file Sexual Orientation Not on file documented as of this encounter Plan of Treatment Upcoming Encounters Date Type Department Care Team (Late st Contact Info) Description 02/07/2025 3:00 PM CDT Office Visit [facility] Oncology and Hematology - Colin [address] [facility] [address] [place] [address] Rg Potter MD [address] [facility] [address] [place] [address] documented as of this encounter Visit Diagnoses Diagnosis Malignant neoplasm of upper-inner quadrant of female breast (CMS/HCC) Malignant neoplasm of upper-inner quadrant of female breast documented in this encounter Care Teams Watch Supervisor Relationship Specialty Start Date End Date Ruiz Krishna MD [address] [place] [address] PCP - General 12/11/08 documented as of this encounter
== END 2025-01-29 13:23 | disposition home or self-care (01) ==
PROVIDERS: PCP Nurse Practitioner; Visit Provider Surgery
DX: C50.912 Malignant neoplasm of unspecified site of left female breast (principal); R92.8 Other abnormal and inconclusive findings on diagnostic imaging of breast
CPT/HCPCS: 77049; A9579; C8908

== ENCOUNTER 2025-02-08 09:01 | Outpatient (CLI) | payer OTHER, SELFPAY ==
--- NOTE | ~2025-02-08 | US_ITS ---
US axilla RT 02/08/2025 09:32 Indication: Patient recently diagnosed with invasive lobular carcinoma of the left breast. Palpable r ight axillary abnormality. Procedure: High-resolution ultrasound of the right axilla Comparison: MRI dated 01/30/2020 Findings: There is a heterogeneous complex right axillary mass measuring 1.6 x 1.2 x 1.2 cm, compatib le with a typical appearing lymph node. There is a smaller lymph node measuring 5 mm, doubtful clinic al significance. Impression: 1: Complex appearing 1.6 cm right axillary mass, suspicious for atypical lymph node given the clinica l history. Ultrasound-guided biopsy recommended. BI-RADS CATEGORY 4-SUSPICIOUS ABNORMALITY Reviewed, dictated and finalized at location A. Impression: 1: Complex appearing 1.6 cm right axillary mass, suspicious for atypical lymph node given the clinical history. Ultrasound-guided biopsy recommended. BI-RADS CATEGORY 4-SUSPICIOUS ABNORMALITY
--- OUTSIDE RECORDS SUMMARY | 2025-02-08 09:18 | XMS_ITS | Referral Summary ---
Author Organization [facility] Medical Office Building B Address [address] [place] [address] Care Team Providers Care Account Advisor Name Role Phone Tanya Colin PT Unavailable Unavailable Katty Dowell PT Unavailable Unavailable Jania Johnson MD Primary Care Provider [phone] Encounters Date Type Department Care Team Description 12/14/2024 8:55 AM CHIEF CARDIOPULMONARY TECHNOLOGIST Lab [address] [address] from Last 3 Months Allergies Active Allergy [...] 12/21/2017 Assessment & Plan (12/21/2017 8:48 AM CHIEF CARDIOPULMONARY TECHNOLOGIST): Obesity is improving with lifestyle modifications. Discussed [...] on file Legal Sex Female 4:22 PM CHIEF CARDIOPULMONARY TECHNOLOGIST Gender Identity Not on file Sexual Orientation [...] Diagnosis Comments EGFR Routine 12/14/2024 9:12 AM CHIEF CARDIOPULMONARY TECHNOLOGIST DIFFERENTIAL AUTO Routine 12/14/2024 9:1 2 AM CHIEF CARDIOPULMONARY TECHNOLOGIST VITAMIN D 25 HYDROXY Routine 12/14/2024 9:12 AM CHIEF CARDIOPULMONARY TECHNOLOGIST VITAMIN B12 Routine 12/14/2024 9:12 AM CHIEF CARDIOPULMONARY TECHNOLOGIST T4, FREE Routine 12/14/2024 9:12 AM CHIEF CARDIOPULMONARY TECHNOLOGIST THYROID FUNCTION CASCADE Routine 12/14/2024 9:12 AM CHIEF CARDIOPULMONARY TECHNOLOGIST HEMOGLOBIN A1C Routine 12/14/2024 9:12 AM CHIEF CARDIOPULMONARY TECHNOLOGIST LIPID PANEL Routine 12/14/2024 9:12 AM CHIEF CARDIOPULMONARY TECHNOLOGIST COMPREHENSIVE METABOLIC PANEL Routine 12/14/2024 9:12 AM CHIEF CARDIOPULMONARY TECHNOLOGIST CBC WITH AUTO DIFFERENTIAL Routine 12/14/2024 9:12 AM CHIEF CARDIOPULMONARY TECHNOLOGIST STOOL DNA COLOGUARD Routine 07/30/2023 8:50 AM CDT Colon cancer screening SCREENING MAMMOGRAM BILATERAL W HERBERT Schedule Routine, Read Routine (OP Routine) 01/12/2018 1:35 PM CDT Screening breast examination HM COLONOSCOPY Routine 01/12/2018 HM PAP SMEAR WITH HPV Routine 06/19/2017 from Last 3 Months or Most Recently Relevant to Health Maintenance Results * eGFR (12/14/2024 9:12 AM CHIEF CARDIOPULMONARY TECHNOLOGIST) eGFR 78 >=60 mL/min/1. 73 m2 Comment: [...] last reviewed 2021. Blood 12/14/2024 9:12 AM CHIEF CARDIOPULMONARY TECHNOLOGIST 12/14/2024 9:28 AM CHIEF CARDIOPULMONARY TECHNOLOGIST us Hillary Cordova NP LAB BLOOD ORDERABLES Final Result RIG[facility]ERTO [facility] ([place]) 1 [facility] Department [place] [address] * Differential, auto (12/14/2024 9:12 AM CHIEF CARDIOPULMONARY TECHNOLOGIST) Pathologist [facility] Neutrophil abs 4.0 1.5 - 6.5 K/cumm Imm gran abs 0.0 0.0 - 0.1 K/cumm [facility] ([place]) Lymphocyte abs 2.3 0.8 - 3.3 K/cumm [facility] ([place]) Monocyte abs 0.4 0.2 - 0.8 K/cumm [facility] ([place]) Eosinophil abs 0.1 0.0 - 0.5 K/cumm [facility] ([place]) Basophil abs 0.1 0.0 - 0.1 K/cumm [facility] ([place]) Neutrophil pct 58.7 % [facility] ([place]) Comment: Interpretive Data Percent cell count reference [...] revised on 2018. Blood 12/14/2024 9:12 AM CHIEF CARDIOPULMONARY TECHNOLOGIST 12/14/2024 9:28 AM CHIEF CARDIOPULMONARY TECHNOLOGIST Hillary Cordova [employer] LAB BLOOD ORDERABLES Final Result RIGOBERTO ED[place] ([place]) 1 [facility] Department of Laboratories [place], [place] [id number] * Thyroid Function [place] (12/14/2024 9:12 AM CHIEF CARDIOPULMONARY TECHNOLOGIST) TSH 3.63 0.30 - 4.20 mcIUnit/mL Blood 12/14/2024 9:12 AM CHIEF CARDIOPULMONARY TECHNOLOGIST 12/14/2024 9:28 AM CHIEF CARDIOPULMONARY TECHNOLOGIST Hillary Cordova [employer] LAB BLOOD ORDERABLES Final Result [facility] ([place]) 1 [facility] [place] [address] * CBC with auto differential (12/14/2024 9:12 AM CHIEF CARDIOPULMONARY TECHNOLOGIST) WBC 6.8 3.8 - 9.9 K/cumm Hgb [...] [facility] ([place]) Blood 12/14/2024 9:12 AM CHIEF CARDIOPULMONARY TECHNOLOGIST 12/14/2024 9:28 AM CHIEF CARDIOPULMONARY TECHNOLOGIST Hillary Cordova NP LAB BLOOD ORDERABLES Final Result RIGOBERTO IRIZARRY ([place]) 1 [facility] [place] [address] * Vitamin D 25 hydroxy (12/14/2024 9:12 AM CHIEF CARDIOPULMONARY TECHNOLOGIST) Vitamin D 25-OH 71 30 - 80 ng/mL Blood 12/14/2024 9:12 AM CHIEF CARDIOPULMONARY TECHNOLOGIST 12/14/2024 9:28 AM CHIEF CARDIOPULMONARY TECHNOLOGIST Hillary Cordova NP LAB BLOOD ORDERABLES Final Result Performing Organization Address City/[facility] Co de Phone Number RIGOBERTO [place]) [address] [place] [address] * T4, free (12/14/2024 9:12 AM CHIEF CARDIOPULMONARY TECHNOLOGIST) [facility] Free T4 1.06 0.90 - 1.70 ng/dL Blood 12/14/2024 9:12 AM CHIEF CARDIOPULMONARY TECHNOLOGIST 12/14/2024 9:28 AM CHIEF CARDIOPULMONARY TECHNOLOGIST Hillary Cordova NP LAB BLOOD ORDERABLES Final Result Performing Organization Address [facility] de Phone Number RIGOBERTO IRIZARRY ([place]) [address] [place] [address] * Hemoglobin A1c (12/14/2024 9:12 AM CHIEF CARDIOPULMONARY TECHNOLOGIST) [facility] Hgb A1C 5.4 4.0 - 5.6 % Estimated Average Glucose 108 mg/dL RIGOBERTO IRIZARRY ([place]) Comment: The ADA recommends reporting an estimated Average Glucose (eAG) with all Hemoglobin A1c results using the equation derived from a study of 507 normal and diabetic adults. Minority populations were underrepresented and children were not included. (Diabetes Care 31:1242-4268, 2008). The eAG is not equivalent to a fasting glucose. Blood 12/14/2024 9:12 AM CHIEF CARDIOPULMONARY TECHNOLOGIST 12/14/2024 9:28 AM CHIEF CARDIOPULMONARY TECHNOLOGIST Hillary Cordova NP LAB BLOOD ORDERABLES Final Result Performing Organization Address [facility] Co de Phone Number RIGOBERTO IRIZARRY ([place]) 1 [place] [address] * Vitamin B12 (12/14/2024 9:12 AM CHIEF CARDIOPULMONARY TECHNOLOGIST) [facility] Vitamin B12 874 230 - 1,250 pg/mL Blood 12/14/2024 9:12 AM CHIEF CARDIOPULMONARY TECHNOLOGIST 12/14/2024 9:28 AM CHIEF CARDIOPULMONARY TECHNOLOGIST us Hillary Cordova NP LAB BLOOD ORDERABLES Final Result RIGOBERTO IRIZARRY ([place]) 1 [facility] Department [place] [address] * (ABNORMAL) Lipid panel (12/14/2024 9:12 AM CHIEF CARDIOPULMONARY TECHNOLOGIST) Cholesterol 259(H) 30 - 199 mg/dL Comment: [...] MARLENE IRIZARRY ([place]) Blood 12/14/2024 9:12 AM CHIEF CARDIOPULMONARY TECHNOLOGIST 12/14/2024 9:28 AM CHIEF CARDIOPULMONARY TECHNOLOGIST Hillary Cordova NP LAB BLOOD ORDERABLES Final Result [facility] ([place]) 1 [facility] Department [place] [address] * Comprehensive metabolic panel (12/14/2024 9:12 AM CHIEF CARDIOPULMONARY TECHNOLOGIST) Sodium 141 135 - 145 mmol/L Potassium, [...] [facility] ([place]) Blood 12/14/2024 9:12 AM CHIEF CARDIOPULMONARY TECHNOLOGIST 12/14/2024 9:28 AM CHIEF CARDIOPULMONARY TECHNOLOGIST Hillary Cordova NP LAB BLOOD ORDERABLES Final Result RIGOBERTO IRIZARRY [place]) 8 [facility] Department of Laboratories [place], [place] [id number] * Stool DNA - Cologuard (07/30/2023 8:50 AM CDT) Stool DNA - Cologuard Negative Negative [employer] (CLIA #:[id number]) Comment: NEGATIVE TEST RESULT. A negative Cologuard [...] Randall. et al, N Engl J Med 2014;370(14):7247-6038) The normal value (reference range) for this assay is negative. COLOGUARD RE-SCREENING RECOMMENDATION: Periodic colorectal cancer screening is an important part of preventive healthcare for asymptomatic individuals at average risk for colorectal cancer. Following a negative Cologuard result, the [place] Cancer Society and U.S. Multi-Society Task Force screening guidelines recommend a Cologuard re-screening interval of 3 years. References: [place] Cancer Society Guideline for Colorectal Cancer Screening: https://www.cancer.org/cancer/iearr-xocpjq-dmszzj/zsccwtcdl-bytfsdcot-cscksya/ac s-rec ommendations.html.; Christiano DK, Kade CR, Kami GutierrezK, Colorectal Cancer Screening: Recommendations for Physicians and Patients from the U.S. Multi-Society Task Force on Colorectal Cancer Screening , Am J Gastroenterology 2017; 112:8462-6505. TEST DESCRIPTION: Composite algorithmic analysis of stool [...] Jurado et al, N Engl J Med 2014;370(14):3836-7559.) Cologuard may produce a false negative or false positive result (no colorectal cancer or precancerous polyp present at colonoscopy follow up). A negative Cologuard test result does not guarantee the absence of CRC or advanced adenoma (pre-cancer). The current Cologuard screening interval is every 3 years. ([place] Cancer Society and U.S. Multi-Society Task Force). Cologuard performance data in a 10,000 patient pivotal study using colonoscopy as the reference method can be accessed at the following location: www.[employer]/results. Additional description of the Cologuard test process, warnings and precautions can be found at www.iScreen Visionoguard.com. Stool 07/30/2023 8:50 AM CDT 08/01/2023 4:12 AM CDT us Jania Johnson MD LAB BODY FLUIDS AND STOOLS O RDERABLES Final Result [employer] (CLIA #:[id number]) [place] [address] * Screening Mammogram Bilateral W Herbert (01/12/2018 [...] Relevant to Health Maintenance Insurance [facility] CHO[facility] PLUS [facility] CHO[facility] PLUS [employer] COMPENSATION GENERIC Care Teams Account Advisor Relationship Specialty Start Date End Date Jania Johnson MD PCP - General Family Practice 05/11/22 Tanya Colin, PT Physical Therapist Physical Therapy 05/09/18 Katty Dowell PT Physical Therapist Physical Therapy 05/15/18
--- OUTSIDE RECORDS SUMMARY | 2025-02-08 09:18 | XMS_ITS | Clinical Summary ---
Author Organization [facility] Medical Office Building B Address [address] [place] [address] Care Team Providers Care Manager Relocation Name Role Phone Tanya Colin PT Unavailable [...] 12/21/2017 Assessment & Plan (12/21/2017 8:48 AM TAX AUDIT MANAGER): Obesity is improving with lifestyle modifications. Discussed [...] Department Care Team Description 12/14/2024 8:55 AM TAX AUDIT MANAGER Lab [address] [address] from Last 3 Months Immunizations Immunization Administration [...] on file Legal Sex Female 4:22 PM TAX AUDIT MANAGER Gender Identity Not on file Sexual [...] Diagnosis Comments EGFR Routine 12/14/2024 9:12 AM TAX AUDIT MANAGER DIFFERENTIAL AUTO Routine 12/14/2024 9:1 2 AM TAX AUDIT MANAGER VITAMIN D 25 HYDROXY Routine 12/14/2024 9:12 AM TAX AUDIT MANAGER VITAMIN B12 Routine 12/14/2024 9:12 AM TAX AUDIT MANAGER T4, FREE Routine 12/14/2024 9:12 AM TAX AUDIT MANAGER THYROID FUNCTION CASCADE Routine 12/14/2024 9:12 AM TAX AUDIT MANAGER HEMOGLOBIN A1C Routine 12/14/2024 9:12 AM TAX AUDIT MANAGER LIPID PANEL Routine 12/14/2024 9:12 AM TAX AUDIT MANAGER COMPREHENSIVE METABOLIC PANEL Routine 12/14/2024 9:12 AM TAX AUDIT MANAGER CBC WITH AUTO DIFFERENTIAL Routine 12/14/2024 9:12 AM TAX AUDIT MANAGER STOOL DNA COLOGUARD Routine 07/30/2023 8:50 AM CDT Colon cancer screening SCREENING MAMMOGRAM BILATERAL W HERBERT Schedule Routine, Read Routine (OP Routine) 01/12/2018 1:35 PM CDT Screening breast examination HM COLONOSCOPY Routine 01/12/2018 HM PAP SMEAR WITH HPV Routine 06/19/2017 from Last 3 Months or Most Recently Relevant to Health Maintenance Results * eGFR (12/14/2024 9:12 AM TAX AUDIT MANAGER) eGFR 78 >=60 mL/min/1. 73 m2 Comment: [...] last reviewed 2021. Blood 12/14/2024 9:12 AM TAX AUDIT MANAGER 12/14/2024 9:28 AM TAX AUDIT MANAGER us Hillary Cordvoa NP LAB BLOOD ORDERABLES Final Result [facility] ([place]) 1 [facility] Department [place] [address] * Differential, auto (12/14/2024 9:12 AM TAX AUDIT MANAGER) Neutrophil abs 4.0 1.5 - 6.5 K/cumm [...] revised on 2018. Blood 12/14/2024 9:12 AM TAX AUDIT MANAGER 12/14/2024 9:28 AM TAX AUDIT MANAGER us Hillary Cordova NP LAB BLOOD ORDERABLES Final Result RIGOBERTO IRIZARRY ([place]) 1 [facility] Department [place] [address] * Thyroid Function [place] (12/14/2024 9:12 AM TAX AUDIT MANAGER) TSH 3.63 0.30 - 4.20 mcIUnit/mL Blood 12/14/2024 9:12 AM TAX AUDIT MANAGER 12/14/2024 9:28 AM TAX AUDIT MANAGER us Hillary Cordova NP LAB BLOOD ORDERABLES Final Result [facility] ([place]) 1 [facility] [place] [address] * CBC with auto differential (12/14/2024 9:12 AM TAX AUDIT MANAGER) WBC 6.8 3.8 - 9.9 K/cumm Hgb [...] [facility] ([place]) Blood 12/14/2024 9:12 AM TAX AUDIT MANAGER 12/14/2024 9:28 AM TAX AUDIT MANAGER Hillary Cordova NP LAB BLOOD ORDERABLES Final Result [facility] ([place]) 1 [facility] [place] [address] * Vitamin D 25 hydroxy (12/14/2024 9:12 AM TAX AUDIT MANAGER) Vitamin D 25-OH 71 30 - 80 ng/mL Blood 12/14/2024 9:12 AM TAX AUDIT MANAGER 12/14/2024 9:28 AM TAX AUDIT MANAGER Hillary Cordova NP LAB BLOOD ORDERABLES Final Result RIGOBERTO [place]ino[place]) 1 [facility] [place] [address] * T4, free (12/14/2024 9:12 AM TAX AUDIT MANAGER) [facility] Free T4 1.06 0.90 - 1.70 ng/dL Blood 12/14/2024 9:12 AM TAX AUDIT MANAGER 12/14/2024 9:28 AM TAX AUDIT MANAGER Hillary Cordova NP LAB BLOOD ORDERABLES Final Result Performing Organization Address [facility] de Phone Number RIGOBERTO IRIZARRY ([place]) 1 [place] [address] * Hemoglobin A1c (12/14/2024 9:12 AM TAX AUDIT MANAGER) [facility] Hgb A1C 5.4 4.0 - 5.6 % Estimated Average Glucose 108 mg/dL RIGOBERTO IRIZARRY ([place]) Comment: The ADA recommends reporting an estimated Average Glucose (eAG) with all Hemoglobin A1c results using the equation derived from a study of 507 normal and diabetic adults. Minority populations were underrepresented and children were not included. (Diabetes Care 31:6577-4353, 2008). The eAG is not equivalent to a fasting glucose. Blood 12/14/2024 9:12 AM TAX AUDIT MANAGER 12/14/2024 9:28 AM TAX AUDIT MANAGER Hillary Cordova NP LAB BLOOD ORDERABLES Final Result RIGOBERTO IRIZARRY ([place]) 1 [place] [address] * Vitamin B12 (12/14/2024 9:12 AM TAX AUDIT MANAGER) [facility] Vitamin B12 874 230 - 1,250 pg/mL Blood 12/14/2024 9:12 AM TAX AUDIT MANAGER 12/14/2024 9:28 AM TAX AUDIT MANAGER us Hillary Cordova NP LAB BLOOD ORDERABLES Final Result RIGOBERTO EDIE ([place]) 1 [facility] Department [place] [address] * (ABNORMAL) Lipid panel (12/14/2024 9:12 AM TAX AUDIT MANAGER) Cholesterol 259(H) 30 - 199 mg/dL Comment: [...] MARLENE IRIZARRY ([place]) Blood 12/14/2024 9:12 AM TAX AUDIT MANAGER 12/14/2024 9:28 AM TAX AUDIT MANAGER Hillary Cordova NP LAB BLOOD ORDERABLES Final Result [facility] ([place]) 1 [facility] Department [place] [address] * Comprehensive metabolic panel (12/14/2024 9:12 AM TAX AUDIT MANAGER) Sodium 141 135 - 145 mmol/L Potassium, [...] [facility] ([place]) Blood 12/14/2024 9:12 AM TAX AUDIT MANAGER 12/14/2024 9:28 AM TAX AUDIT MANAGER us Hillary J. Art PLASTIC PROCESS TECHNICIAN LAB BLOOD ORDERABLES Final Result RIGOBERTO IRIZARRY [place]) 1 [facility] Department [place] [address] * Stool DNA - Cologuard (07/30/2023 8:50 AM CDT) Stool DNA - Cologuard Negative Negative [employer] (CLIA #:[id number]) Comment: NEGATIVE TEST RESULT. A negative Cologuard [...] (Jayla Bennett al, N Engl J Med 2014;370(14):4885-9144) The normal value (reference range) for this assay is negative. COLOGUARD RE-SCREENING RECOMMENDATION: Periodic colorectal cancer screening is an important part of preventive healthcare for asymptomatic individuals at average risk for colorectal cancer. Following a negative Cologuard result, the [place] Cancer Society and U.S. Multi-Society Task Force screening guidelines recommend a Cologuard re-screening interval of 3 years. References: [place] Cancer Society Guideline for Colorectal Cancer Screening: https://www.cancer.org/cancer/vpocm-gqmrxl-hdwhlk/vxyccjunl-miiozdhqz-ljkgyqw/ac s-rec ommendations.html.; Christiano DK, Kade CR, Kami GutierrezK, Colorectal Cancer Screening: Recommendations for Physicians and Patients from the U.S. Multi-Society Task Force on Colorectal Cancer Screening , Am J Gastroenterology 2017; 112:0988-7196. TEST DESCRIPTION: Composite algorithmic analysis of stool [...] (Jayla Bennett al, N Engl J Med 2014;370(14):8534-8362.) Cologuard may produce a false negative or false positive result (no colorectal cancer or precancerous polyp present at colonoscopy follow up). A negative Cologuard test result does not guarantee the absence of CRC or advanced adenoma (pre-cancer). The current Cologuard screening interval is every 3 years. ([place] Cancer Society and U.S. Multi-Society Task Force). Cologuard performance data in a 10,000 patient pivotal study using colonoscopy as the reference method can be accessed at the following location: www.[employer]/results. Additional description of the Cologuard test process, warnings and precautions can be found at www.[email or web address] Wound Carerd.com. Stool 07/30/2023 8:50 AM CDT 08/01/2023 4:12 AM CDT us Jania oJhnson MD LAB BODY FLUIDS AND STOOLS O RDERABLES Final Result [facility] (CLIA #:[id number]) [place] [address] * Screening Mammogram Bilateral W Herbert (01/12/2018 [...] Most Recently Relevant to Health Maintenance Insurance [facility] CHO[facility] PLUS [facility] H[facility]/PPO Address: [address] [place] [address] [facility] CHOICE PLUS [facility] HMO/PPO Address: [place] [address] WORKERS COMPENSATION GENERIC Care Teams Manager Relocation Relationship Specialty Start Date End Date Jania Johnson MD PCP - General Family Practice 05/11/22 Tanya Colin, PT Physical Therapist Physical Therapy 05/09/18 Katty Dowell, PT Physical Therapist Physical Therapy 05/15/18
--- OUTSIDE RECORDS SUMMARY | 2025-02-08 09:18 | XMS_ITS | Clinical Summary ---
Author Organization [address] Address [address] [place] [phone] Care Team Providers Care Meat Puller Name Role Phone Ruiz Krishna MD Primary Care Provider [phone] Allergies Active Allergy Reactions Criticality Noted Date Comments Nickel Rash Low 02/07/2025 Medications cholecalciferol 1,250 mcg (50,000 unit) Capsule Take 50,000 Units by mouth every 7 days. Active calcium as CARBONATE (OS-MYCHAL) 1,250 mg (500 mg elemental) tablet Take 1 Tablet by mouth daily. Active MAGNESIUM GLUCONATE ORAL Take by mouth 1 time daily as needed for Other (See Comment) (Take with calcium to make it work better). Active IBUPROFEN ORAL Take 400 mg by mouth Continuous as needed for Pain. Active Active Problems No known active problems Encounters Date Type Department Care Team Description 02/07/2025 3:00 PM CDT Office Visit [facility] Oncology and Hematology - [place] [address] [address] [phone] Rg Potter MD Malignant neoplasm of upper-outer quadrant of left breast in female, estrogen receptor positive (CMS/HCC) (Primary Dx) from Last 3 Months Family History Medical History Relation Name Comments No Known Problems Brother No Known Problems Child 1 No Known Problems Child 2 No Known Problems Father Breast Cancer Mother No Known Problems Sister Relation Name Status Comments Brother Alive Child 1 Alive Child 2 Alive Father Alive Mother Sister Alive Social History Tobacco Use Types Packs/Day Years Used Date Smoking Tobacco: Never Smokeless Tobacco: Never Alcohol Use Standard Drinks/Week Comments Yes 0 (1 standard drink = 0.6 oz pur e alcohol) Occasionally Comments Unknown Sex and Gender Information Value Date Recorded Sex Assigned at Not on file Legal Sex Female 5:41 AM FOOD BEVERAGE MANAGER Gender Identity Not on file Sexual Orientation Not on file Last Filed Vital Signs Vital Sign Reading Time Taken Comments Blood Pressure 126/80 02/07/2025 3:20 PM CDT Pulse 77 02/07/2025 3:20 PM CDT Temperature 36.7 C (98 F) 02/07/2025 3:20 PM CDT Respiratory Rate 16 02/07/2025 3:20 PM CDT Oxygen Saturation 98% 02/07/2025 3:20 PM CDT Inhaled Oxygen Concentration - - Weight 82.1 kg (181 lb) 02/07/2025 3:20 PM CDT Height 157.5 cm (5' 2 ) 02/07/2025 3:20 PM CDT Body Mass Index 33.11 02/07/2025 3:20 PM CDT Plan of Treatment Upcoming Encounters Date Type Department Care Team (Late st Contact Info) Description 02/28/2025 4:30 PM CDT Telephone Check Up [facility] Oncology and Hematology [place] [address] [address] [place] [phone] Rg Potter MD [facility] [address] [place] [phone] 03/21/2025 10:00 AM CDT Office Visit [facility] Oncology and Hematology Colin Awais [address] [place] [phone] Rg Potter MD [address] [place] [phone] Health Maintenance Due Date Last Done Comments Pre-Diabetes and Diabetes Screening 1965 DTAP/TDAP/TD VACCINES (1 - Tdap) 1984 HEPATITIS B VACCINES (1 of 3 - 19+ 3-dose series) 1984 HPV/Cotest (21-29) 1986 CERVICAL CANCER SCREENING 1995 HPV/Cotest (30-65) 1995 PAP SMEAR 1995 COLORECTAL SCREENING 2010 Colorectal Cancer Screening 2010 FIT-DNA Q 3 years 2010 FIT/FOBT Q 1 year 2010 Flex Sig/CT Colonography Q 5 years 2010 ZOSTER VACCINE (1 of 2) 2015 BREAST CANCER SCREENING 01/12/2019 01/13/20 18, 01/12/2018, 03/09/2016, Additional history exists INFLUENZA VACCINE (#1) 2024 08/08/2015, 2011 Preventative Visit- Commercial 10/31/2024 0 06/28/2023, 05/11/2022, 12/21/2017 Procedures Procedure Name Priority Date/Time Associated Diagnosis Comments MAMMO SCREEN BILAT W OR WO CAD Routine 01/27/2010 from Last 3 Months or Most Recently Relevant to Health Maintenance Results * MAMMO DIGITAL SCREEN BILAT (01/27/2010) Anatomical Region Laterality Modality Breast Bilateral Other us Abstract Provider MAMMO ORDERABLES Final Result from Last 3 Months or Most Recently Relevant to Health Maintenance Insurance Care Teams Meat Puller Relationship Specialty Start Date End Date Ruiz Krishna MD [address] [place] [address] PCP - General 12/11/08
--- OUTSIDE RECORDS SUMMARY | 2025-02-08 09:18 | XMS_ITS | Encounter Summary ---
Author Organization [facility] Address [address] [place] [address] Care Team Providers Care Director Of Hemophilia Name Role Phone Ruiz Krishna MD Primary Care Provider [phone] Encounter Details Date Type Department Care Team (Latest Contact Info) Description 01/12/2009 Outpatient Historical [facility] Radiation Oncology [address] [place] [phone] Xiomara Guerra MD NO ADDRESS ON FILE Malignant Neoplasm of Upper-Inner Quadrant of Female Breast (CMS/HCC) Social History Tobacco Use Types Packs/Day Years Used Date Smoking Tobacco: Never Assessed Comments Unknown Sex and Gender Information Value Date Recorded Sex Assigned at Not on file Legal Sex Female 5:41 AM DENTAL OFFICE MANAGER Gender Identity Not on file Sexual Orientation Not on file documented as of this encounter Plan of Treatment Upcoming Encounters Date Type Department Care Team (Late st Contact Info) Description 02/28/2025 4:30 PM CDT Telephone Check Up [facility] Oncology and Hematology - [address] [place] [address] Rg Potter MD [address] [employer] [address] [place] [phone] 03/21/2025 10:00 AM CDT Office Visit [facility] Oncology and Hematology [address] [place] [address] Rg Potter MD [address] [facility] [address] [place] [address] [place] [address] documented as of this encounter Visit Diagnoses Diagnosis Malignant neoplasm of upper-inner quadrant of female breast (CMS/HCC) Malignant neoplasm of upper-inner quadrant of female breast documented in this encounter Care Teams Director Of Hemophilia Relationship Specialty Start Date End Date Riuz Krishna MD [facility] [place] [address] [place] [phone] PCP - General 12/11/08 documented as of this encounter
--- OUTSIDE RECORDS SUMMARY | 2025-02-08 09:18 | XMS_ITS | Encounter Summary ---
Author Organization [facility] Address [address] [place] [address] Care Team Providers Care Fiber Technician Name Role Phone Ruiz Krishna MD Primary Care Provider [phone] Reason for Visit * Reason Comments Cancer Establish Care Encounter Details Date Type Department Care Team (Late st Contact Info) Description 02/07/2025 3:00 PM CDT Office Visit [facility] Oncology and Hematology - Colin [address] [place] [address] [address] [place] [address] Rg Potter MD [address] [facility] [address] [place] [address] Malignant neoplasm of upper-outer quadrant of left breast in female, estrogen receptor positive (CMS/HCC) (Primary Dx) Social History Tobacco Use Types Packs/Day Years Used Date Smoking Tobacco: Never Smokeless Tobacco: Never Alcohol Use Standard Drinks/Week Comments Yes 0 (1 standard drink = 0.6 oz pur e alcohol) Occasionally Comments Unknown Sex and Gender Information Value Date Recorded Sex Assigned at Not on file Legal Sex Female 5:41 AM TUTOR COORDINATOR Gender Identity Not on file Sexual Orientation Not on file documented as of this encounter Last Filed Vital Signs Vital Sign Reading [...] Mass Index 33.11 02/07/2025 3:20 PM CDT documented in this encounter Progress Notes * Rg Potter MD - 02/07/2025 5:06 PM CDT Hematology-oncology consult Note Requesting Physician Lilibeth Al MD Primary Care Physician Ruiz Krishna MD Problem list There is no problem list on file for this patient. Previous TREATMENT ? Measurable Disease ? Reason for Visit Ariana Colvin is a 59 y.o. female who was referred for consultation for breast cancer. 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 Patient had a screening mammogram done on December 17 2024 that showed possible small mass with architectural distortion centrally in the left breast. Patient had diagnostic mammogram and ultrasound done on January 04 that showed 4.6 x 3.2 x 5.2 mm mass at 1 o'clock position 2 cm from the nipple. Biopsy was done on January 11 and pathology came back positive for invasive lobular carcinoma ER/FL positive HER2/katina negative with low Ki-67. She denies any bone pain. Denies any headaches and seizures. She has gained 30 pound weight in last 2 years duration. Patient had bilateral breast MRI done on January 29, 2025 that showed no evidence of disease in the right breast. On the left breast there are 2 separate foci of abnormal enhancement in the upper outer posterior left breast representing reactive lymph node. She denies any other complaints. Past Medical History Past Medical History: Diagnosis Date Malignant neoplasm (CMS/HCC) Osteopenia Surgical History Past Surgical History: Procedure Laterality Date HX BREAST LUMPECTOMY FOR CANCER 2000 HX BREAST REDUCTION 2015 HX CYSTECTOMY Cyst on neck 2016 HX TONSILLECTOMY 2002 Medications Current Outpatient Medications Medication Sig Dispense Refill calcium as CARBONATE (OS-MYCHAL) 1,250 mg (500 mg elemental) tablet Take 1 Tablet by mouth daily. MAGNESIUM GLUCONATE ORAL Take by mouth 1 time daily as needed for Other (See Comment) (Take with calcium to make it work better). IBUPROFEN ORAL Take 400 mg by mouth Continuous as needed for Pain. cholecalciferol 1,250 mcg (50,000 unit) Capsule Take 50,000 Units by mouth every 7 days. No current facility-administered medications for this visit. Allergies Allergies Allergen Reactions Nickel Rash Immunizations: There is no immunization history on file for this patient. Family History Family History Problem Relation Name Age of Onset No Known Problems Father Breast Cancer Mother No Known Problems Brother No Known Problems Sister No Known Problems Child No Known Problems Child Social History Social History Tobacco Use Smoking status: Never Smokeless tobacco: Never Substance Use Topics Alcohol use: Yes Comment: Occasionally Review of Systems Constitutional: Patient did not mention fever; no night sweats; no anorexia; no weight loss; no fatique NEENT: Patient did not mention headache; no change in vision; no change in hearing; no sore throat;no dysphagia Respiratory: Patient did not mention shortness of breath; no pleuritic chest pain; no cough; no hemoptysis Cardiac: Patient did not mention cardiac-like chest pain; no palpitations; no orthopnea; no PND; noDOE Breasts: Patient did not mention tenderness; no masses GI: Patient did not mention abdominal pain; no nausea; no vomiting; no diarrhea; no hematochezia; no melena : Patient did not mention dysuria; no frequency; no hesitancy; no hematuria TAX ASSISTANT: Musculosketetal: Patient did not mention bone pain; no arthralgia; no joint swelling; no myalgia; Skin: Patient did not mention pruritis; no rash; no petechiae; no ecchymoses Endocrine: Patient did not mention polydipsia; no polyuria; no unusual weight gain Neuro: Patient did not mention headache; no change in vision; no sensory changes; no muscle weakness; no confusion; no seizures Psych: Patient did not mention anxiety; no depression; Physical Exam Vitals: As per nursing note Constitutional: Well developed, well nourished, no acute distress, non-toxic appearance Teeth and gum. No signs of infection or swelling. Eyes: PERRL, conjunctiva normal HEENT: Atraumatic, external ears normal, nose normal, oropharynx moist, no pharyngeal exudates. no sinus tenderness Neck- normal range of motion, no tenderness, supple Respiratory: No respiratory distress, normal breath sounds, no rales, no wheezing Breasts: Symmetric, No masses, No nipple discharge. Cardiovascular: Normal rate, normal rhythm, no murmurs, no gallops, no rubs GI: Soft, nondistended, normal bowel sounds, nontender, no splenomegaly, no hepatomegaly, no mass, no rebound, no guarding : No costovertebral angle tenderness Musculoskeletal: No edema, no tenderness, no deformities. Back- no tenderness Integument: Well hydrated, no rash, Digits and nails inspection normal Lymphatic: No lymphadenopathy noted Neurologic: Alert & oriented x 3, CN 2-12 normal, normal motor function, normal sensory function, no focal deficits noted Psychiatric: Speech and behavior appropriate ? labs No results found for this or any previous visit (from the past 24 hours). Pathology ? Imaging & Other Studies Performance Status? Assessment / Plan: ? T1 N0 M0 stage IA invasive lobular carcinoma ER FL positive HER2/katina negative with low Ki-67 statuspost left breast mass at 1 o'clock position 2 cm from the nipple biopsy done on January 11, 2025.Patient had diagnostic mammogram and ultrasound done on January 04 that showed 4.6 x 3.2 x 5.2 mm mass at 1o'clock position 2 cm from the nipple. Patient had bilateral breast MRI done on January 29, 2025 that showed no evidence of disease in the right breast. On the left breast there are 2 separate foci of abnormal enhancement in the upper outer posterior left breast representing reactive lymph node. I have discussed the management of early-stage breast cancer in detail. I will order Oncotype DX recurrence score. Patient had genetic testing done previously and that was unremarkable when she was diagnosed with DCIS of the right breast. She is planning to have bilateral mastectomy. We would recommend chemotherapy based on the Oncotype DX recurrence score findings. She will receive endocrine therapy with anastrozole after surgery. I have answered all the questions to patient satisfaction. Willdiscuss Oncotype result with her in 2 weeks and follow-up 4 weeks after the surgery. Thank you very much for allowing me to participate in Ariana Colvin's evaluation and management. Please feel free to contact if I can be of any further assistance in your patient???s care requiring hematology or oncology evaluation. Sincerely, ? ? Rg Potter M.D. cell TOBACCO COUNSELING She is not a tobacco/nicotine user. Rg Potter MD ,02/07/2025 5:07 PM ? Total time spent 60 minutes, two third of the total time spent counseling patient [id number]. CC:?Requesting Physician Lilibeth Al MD Primary Care Physician Ruiz Krishna MD documented in this encounter Plan of Treatment Upcoming Encounters Date Type Department Care Team (Late st Contact Info) Description 02/28/2025 4:30 PM CDT Telephone Check Up [facility] Oncology and Hematology [facility] [address] [place] [phone] Rg Potter MD [address] [facility] [employer] [address] [place] [phone] 03/21/2025 10:00 AM CDT Office Visit [facility] Oncology and Hematology [facility] [address] [place] [phone] Rg Potter MD [address] [employer] [address] [place] [phone] documented as of this encounter Visit Diagnoses Diagnosis Malignant neoplasm of upper-outer quadrant of left breast in female, estrogen receptor positive (CMS/HCC)- Primary documented in this encounter Care Teams Fiber Technician Relationship Specialty Start Date End Date Ruiz Krishna MD [address] [place] [address] PCP - General 12/11/08 documented as of this encounter
--- OUTSIDE RECORDS SUMMARY | 2025-02-08 09:18 | XMS_ITS | Clinical Summary ---
Author Organization [facility] Address [address] [place] [address] Phone Care Team Providers Care Admissions Counselor Name Role Phone Ruiz Krishna MD Primary Care Provider [phone] Family History Medical History Relation Name Comments [...] general adult medical examination w/o abnormal findings [facility] SCREENING BILATERAL DIGITAL W CAD Routine 03/09/2016 12:04 PM CDT Visit for screening mammogram from Last 3 Months or Most Recently Relevant to Health Maintenance Results * HEPATITIS C ANTIBODY (02/10/2017 11:11 AM CDT) hepatitis C antibody 0.07 <1 S/CO 02/10/2017 11:19 PM CDT [facility] Comment: Signal/Cutoff ratio < 0.79 is Nondetected Signal/Cutoff ratio 0.80-0.99 is Grayzone Signal/Cutoff ratio > 0.99 is Detected Supplemental assays are recommended if signal/cutoff ratio is >/=1.00. Signal/cutoff ratio result >/= 5.00 is 97% predictive of positivity for recombinant immunoblot assay (RIBA) and will be reported to the [place] [facility] Public [facility] as required. Blood specimen (specimen) Venipuncture / Unknown 02/10/2017 11:11 AM CDT 02/10/2017 2:18 PM CDT us Ruiz Krishna MD CHEMISTRY ORDERABLES Final Resul t [facility] [address] [place] [address], * [facility] SCREENING BILATERAL DIGITAL W CAD [...] is made to exams dated: 12/16/2014, 09/21/2013 [facility], and 02/22/2011 [facility]. BREAST TISSUE:There are scattered fibroglandular densities [...] exam. Electronically signed by: Sammy lancaster/mervat:03/09/2016 13:34:43 Newsstand Vendor: Margaret YUNG(Nicole)(Mao), [facility] letter sent: Normal Exam Reading location: [facility] BI-RADS: 1 Negative Procedure Note Sammy Carballo [...] is made to exams dated: 12/16/2014, 09/21/2013 [facility], and 02/22/2011 [facility]. BREAST TISSUE:There are scattered fibroglandular densities [...] exam. Electronically signed by: Sammy lancaster/mervat:03/09/2016 13:34:43 Newsstand Vendor: Margaret YUNG(Nicole)(Mao), [facility] letter sent: Normal Exam Reading location: [facility] BI-RADS: 1 Negative us Sammy Carballo MD IMG MAMMO ORDERABLES Fin al Result from Last 3 Months or Most Recently Relevant to Health Maintenance Care Teams Admissions Counselor Relationship Specialty Start Date End Date Ruiz Krishna MD [address] [place] [address] PCP - General Internal Medicine 02/10/16
--- OUTSIDE RECORDS SUMMARY | 2025-02-08 09:18 | XMS_ITS | Encounter Summary ---
Author Organization [facility] Address [address] [place] [address] Care Team Providers Care Custodial Manager Name Role Phone Ruiz Krishna MD Primary Care Provider [phone] Encounter Details Date Type Department Care Team (Latest Contact Info) Description 12/11/2008 Outpatient Historical [facility] Radiation Oncology [address] [place] [address] Xiomara Guerra MD NO ADDRESS ON FILE Malignant Neoplasm of Upper-Inner Quadrant of Female Breast (CMS/HCC) Social History Tobacco Use Types Packs/Day Years Used Date Smoking Tobacco: Never Assessed Comments Unknown Sex and Gender Information Value Date Recorded Sex Assigned at Not on file 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 Gender Identity Not on file Sexual Orientation Not on file documented as of this encounter Plan of Treatment Upcoming Encounters Date Type Department Care Team (Late st Contact Info) Description 02/28/2025 4:30 PM CDT Telephone Check Up [facility] Oncology and Hematology - Colin [address] [place] [address] Rg Potter MD [address] [employer] [address] [place] [phone] 03/21/2025 10:00 AM CDT Office Visit [facility] Oncology and Hematology [address] [place] [address] Rg Potter MD [address] [facility] [address] [place] [address] [place] [address] documented as of this encounter Visit Diagnoses Diagnosis Malignant neoplasm of upper-inner quadrant of female breast (CMS/HCC) Malignant neoplasm of upper-inner quadrant of female breast documented in this encounter Care Teams Custodial Manager Relationship Specialty Start Date End Date Ruiz Krishna MD [facility] [place] [phone] PCP - General 12/11/08 documented as of this encounter
== END 2025-02-08 09:02 | disposition home or self-care (01) ==
PROVIDERS: PCP Nurse Practitioner; Visit Provider Surgery
DX: R22.31 Localized swelling, mass and lump, right upper limb (principal); C50.912 Malignant neoplasm of unspecified site of left female breast; Z86.000 Personal history of in-situ neoplasm of breast
CPT/HCPCS: 76882

== ENCOUNTER 2025-02-12 09:21 | Outpatient (CLI) | payer OTHER, SELFPAY ==
--- NOTE | ~2025-02-12 | US_ITS ---
EXAMINATION: US GUIDED NEEDLE BIOPSY WITH VACUUM ASSISTANCE DATE: 02/12/2025 12:33 CDT INDICATION: Right axillary mass. Ultrasound-guided core biopsy is requested to evaluate for malignan cy. History of left breast malignancy. TECHNIQUE AND FINDINGS: The risks and potential benefits of the procedure were discussed with the patient, and written inform ed consent was obtained. After sterile preparation of the right axilla, 1% lidocaine was utilized fo r local anesthesia. 1% lidocaine with epinephrine was used for deep anesthesia. A 10G vacuum-assisted biopsy gun needle was advanced through to the outer edge of the region of inter est from a medial approach utilizing sonographic guidance. A total of 4 tissue core samples were obt ained through the lesion. The patient tolerated procedure well and there was no evidence of immediate complication. The patien t was given verbal instructions partly is from the department. IMPRESSION: 1. Successful ultrasound-guided vacuum-assisted biopsy of right breast axilla. Please refer to patho logy report for histologic analysis. Reviewed, dictated and finalized at location B. IMPRESSION: 1. Successful ultrasound-guided vacuum-assisted biopsy of right breast axilla. Please refer to pathology report for histologic analysis.
--- OUTSIDE RECORDS SUMMARY | 2025-02-12 09:53 | XMS_ITS | Referral Summary ---
Author Organization [facility] Address [address] [place] [address] Care Team Providers Care International Logistics Manager Name Role Phone Tanya Colin PT Unavailable Unavailable Katty Dowell PT Unavailable Unavailable Jania Johnson MD Primary Care Provider [phone] Encounters Date Type Department Care Team Description 12/14/2024 8:55 AM DECORATOR MANNEQUIN Lab [address] [address] from Last 3 Months Allergies Active Allergy [...] 12/21/2017 Assessment & Plan (12/21/2017 8:48 AM DECORATOR MANNEQUIN): Obesity is improving with lifestyle modifications. Discussed [...] on file Legal Sex Female 4:22 PM DECORATOR MANNEQUIN Gender Identity Not on file Sexual Orientation [...] Diagnosis Comments EGFR Routine 12/14/2024 9:12 AM DECORATOR MANNEQUIN DIFFERENTIAL AUTO Routine 12/14/2024 9:1 2 AM DECORATOR MANNEQUIN VITAMIN D 25 HYDROXY Routine 12/14/2024 9:12 AM DECORATOR MANNEQUIN VITAMIN B12 Routine 12/14/2024 9:12 AM DECORATOR MANNEQUIN T4, FREE Routine 12/14/2024 9:12 AM DECORATOR MANNEQUIN THYROID FUNCTION CASCADE Routine 12/14/2024 9:12 AM DECORATOR MANNEQUIN HEMOGLOBIN A1C Routine 12/14/2024 9:12 AM DECORATOR MANNEQUIN LIPID PANEL Routine 12/14/2024 9:12 AM DECORATOR MANNEQUIN COMPREHENSIVE METABOLIC PANEL Routine 12/14/2024 9:12 AM DECORATOR MANNEQUIN CBC WITH AUTO DIFFERENTIAL Routine 12/14/2024 9:12 AM DECORATOR MANNEQUIN STOOL DNA COLOGUARD Routine 07/30/2023 8:50 AM CDT Colon cancer screening SCREENING MAMMOGRAM BILATERAL W HERBERT Schedule Routine, Read Routine (OP Routine) 01/12/2018 1:35 PM CDT Screening breast examination HM COLONOSCOPY Routine 01/12/2018 HM PAP SMEAR WITH HPV Routine 06/19/2017 from Last 3 Months or Most Recently Relevant to Health Maintenance Results * eGFR (12/14/2024 9:12 AM DECORATOR MANNEQUIN) eGFR 78 >=60 mL/min/1. 73 m2 Comment: [...] last reviewed 2021. Blood 12/14/2024 9:12 AM DECORATOR MANNEQUIN 12/14/2024 9:28 AM DECORATOR MANNEQUIN us Hillary Cordova NP LAB BLOOD ORDERABLES Final Result [facility] 1 [facility] Department [place] [address] * Differential, auto (12/14/2024 9:12 AM DECORATOR MANNEQUIN) Pathologist [facility] Neutrophil abs 4.0 1.5 - 6.5 K/cumm Imm gran abs 0.0 0.0 - 0.1 K/cumm [facility] ([place]) Lymphocyte abs 2.3 0.8 - 3.3 K/cumm [facility] ([place]) Monocyte abs 0.4 0.2 - 0.8 K/cumm [facility] ([place]) Eosinophil abs 0.1 0.0 - 0.5 K/cumm [facility] ([place]) Basophil abs 0.1 0.0 - 0.1 K/cumm [facility] ([place]) Neutrophil pct 58.7 % [facility] ([place]) Comment: Interpretive Data Percent cell count reference [...] revised on 2018. Blood 12/14/2024 9:12 AM DECORATOR MANNEQUIN 12/14/2024 9:28 AM DECORATOR MANNEQUIN Hillary Cordova HYPERBARIC WELDER DIVER LAB BLOOD ORDERABLES Final Result [facility] ([place]) 1 [facility] Department of Laboratories [place], [place] [id number] * Thyroid Function [place] (12/14/2024 9:12 AM DECORATOR MANNEQUIN) TSH 3.63 0.30 - 4.20 mcIUnit/mL Blood 12/14/2024 9:12 AM DECORATOR MANNEQUIN 12/14/2024 9:28 AM DECORATOR MANNEQUIN Hillary Cordova HYPERBARIC WELDER DIVER LAB BLOOD ORDERABLES Final Result [facility] ([place]) 1 [facility] [place] [address] * CBC with auto differential (12/14/2024 9:12 AM DECORATOR MANNEQUIN) WBC 6.8 3.8 - 9.9 K/cumm Hgb [...] [facility]) Blood 12/14/2024 9:12 AM DECORATOR MANNEQUIN 12/14/2024 9:28 AM DECORATOR MANNEQUIN Hillary Cordova NP LAB BLOOD ORDERABLES Final Result [facility] ([place]) 1 [facility] [place] [address] * Vitamin D 25 hydroxy (12/14/2024 9:12 AM DECORATOR MANNEQUIN) Vitamin D 25-OH 71 30 - 80 ng/mL Blood 12/14/2024 9:12 AM DECORATOR MANNEQUIN 12/14/2024 9:28 AM DECORATOR MANNEQUIN Hillary Cordova NP LAB BLOOD ORDERABLES Final Result Performing Organization Address City/[facility] Co de Phone Number [facility] [place]) [address] [place] [address] * T4, free (12/14/2024 9:12 AM DECORATOR MANNEQUIN) [facility] Free T4 1.06 0.90 - 1.70 ng/dL Blood 12/14/2024 9:12 AM DECORATOR MANNEQUIN 12/14/2024 9:28 AM DECORATOR MANNEQUIN Hillary Cordova NP LAB BLOOD ORDERABLES Final Result Performing Organization Address [facility] de Phone Number [facility] ([place]) [address] [place] [address] * Hemoglobin A1c (12/14/2024 9:12 AM DECORATOR MANNEQUIN) [facility] Hgb A1C 5.4 4.0 - 5.6 % Estimated Average Glucose 108 mg/dL [facility] ([place]) Comment: The ADA recommends reporting an estimated Average Glucose (eAG) with all Hemoglobin A1c results using the equation derived from a study of 507 normal and diabetic adults. Minority populations were underrepresented and children were not included. (Diabetes Care 31:6700-0535, 2008). The eAG is not equivalent to a fasting glucose. Blood 12/14/2024 9:12 AM DECORATOR MANNEQUIN 12/14/2024 9:28 AM DECORATOR MANNEQUIN Hillary Cordova NP LAB BLOOD ORDERABLES Final Result Performing Organization Address [facility] Co de Phone Number [facility] ([place]) [address] [place] [address] * Vitamin B12 (12/14/2024 9:12 AM DECORATOR MANNEQUIN) [facility] Vitamin B12 874 230 - 1,250 pg/mL Blood 12/14/2024 9:12 AM DECORATOR MANNEQUIN 12/14/2024 9:28 AM DECORATOR MANNEQUIN us Hillary Cordova NP LAB BLOOD ORDERABLES Final Result [facility] ([place]) 1 [facility] Department [place] [address] * (ABNORMAL) Lipid panel (12/14/2024 9:12 AM DECORATOR MANNEQUIN) Cholesterol 259(H) 30 - 199 mg/dL Comment: [...] [facility] ([place]) Blood 12/14/2024 9:12 AM DECORATOR MANNEQUIN 12/14/2024 9:28 AM DECORATOR MANNEQUIN Hillary Cordova NP LAB BLOOD ORDERABLES Final Result [facility] ([place]) 1 [facility] Department [place] [address] * Comprehensive metabolic panel (12/14/2024 9:12 AM DECORATOR MANNEQUIN) Sodium 141 135 - 145 mmol/L Potassium, [...] [facility] ([place]) Blood 12/14/2024 9:12 AM DECORATOR MANNEQUIN 12/14/2024 9:28 AM DECORATOR MANNEQUIN Hillary Cordova NP LAB BLOOD ORDERABLES Final Result [facility] [place]) 4 [facility] Department of Laboratories [place], [place] [address] * Stool DNA - Cologuard (07/30/2023 8:50 AM CDT) Stool DNA - Cologuard Negative Negative [employer] (CLIA #:[id number]) Comment: NEGATIVE TEST RESULT. A negative Cologuard [...] Randall. et al, N Engl J Med 2014;370(14):1560-6448) The normal value (reference range) for this assay is negative. COLOGUARD RE-SCREENING RECOMMENDATION: Periodic colorectal cancer screening is an important part of preventive healthcare for asymptomatic individuals at average risk for colorectal cancer. Following a negative Cologuard result, the [place] Cancer Society and U.S. Multi-Society Task Force screening guidelines recommend a Cologuard re-screening interval of 3 years. References: [place] Cancer Society Guideline for Colorectal Cancer Screening: https://www.cancer.org/cancer/kvrha-dzvfnk-gykcaa/neqkcxzrz-gdpfcueva-zusmvou/ac s-rec ommendations.html.; Christiano DK, Kade CR, Kami GutierrezK, Colorectal Cancer Screening: Recommendations for Physicians and Patients from the U.S. Multi-Society Task Force on Colorectal Cancer Screening , Am J Gastroenterology 2017; 112:7246-5407. TEST DESCRIPTION: Composite algorithmic analysis of stool [...] Jurado et al, N Engl J Med 2014;370(14):6957-0516.) Cologuard may produce a false negative or false positive result (no colorectal cancer or precancerous polyp present at colonoscopy follow up). A negative Cologuard test result does not guarantee the absence of CRC or advanced adenoma (pre-cancer). The current Cologuard screening interval is every 3 years. ([place] Cancer Society and U.S. Multi-Society Task Force). Cologuard performance data in a 10,000 patient pivotal study using colonoscopy as the reference method can be accessed at the following location: www.OurHouse/results. Additional description of the Cologuard test process, warnings and precautions can be found at www.Indelsuloguard.com. Stool 07/30/2023 8:50 AM CDT 08/01/2023 4:12 AM CDT us Jania Johnson MD LAB BODY FLUIDS AND STOOLS O RDERABLES Final Result [facility] (CLIA #:[id number]) [place] [address] * Screening Mammogram Bilateral W Herbert (01/12/2018 [...] Most Recently Relevant to Health Maintenance Insurance [facility] CHOICE PLUS [facility] CHOICE PLUS WORKERS COMPENSATION GENERIC Care Teams International Logistics Manager Relationship Specialty Start Date End Date Jania Johnson MD PCP - General Family Practice 05/11/22 Tanya Colin, PT Physical Therapist Physical Therapy 05/09/18 Katty Dowell PT Physical Therapist Physical Therapy 05/15/18
--- OUTSIDE RECORDS SUMMARY | 2025-02-12 09:53 | XMS_ITS | Clinical Summary ---
Author Organization [facility] B Address [address] [place] [address] Care Team Providers Care Linter Operator Name Role Phone Tanya Colin PT Unavailable [...] 12/21/2017 Assessment & Plan (12/21/2017 8:48 AM PARQUET FLOOR LAYER'S HELPER): Obesity is improving with lifestyle modifications. Discussed [...] Department Care Team Description 12/14/2024 8:55 AM PARQUET FLOOR LAYER'S HELPER Lab [address] [address] from Last 3 Months Immunizations Immunization Administration [...] on file Legal Sex Female 4:22 PM PARQUET FLOOR LAYER'S HELPER Gender Identity Not on file Sexual Orientation [...] 18-64 06/28/2024 06/28/2023, 05/11/2022, 12/21/2017 Influenza Vaccine (Season Ended) 2025 09/13/2017, 07/31/2016, 08/08/2015, Additional history exists Colon Cancer Screening-Colonoscopy 01/13/2028 01/12/2018 Colon Cancer Screening-CT Colonography Discontinued 01/12/2018 Colon Cancer Screening-Sigmoidoscopy Discontinued 01/12/2018 Colon Cancer Screening-DNA Stool Discontinued 07/30/2023, 01/12/2018 Colon Cancer Screening-FIT Discontinued 07/30/2023, Pneumococcal vaccine <65 Aged Out No longer eligible based on patient's age to complete this topic Procedures Procedure Name Priority Date/Time Associated Diagnosis Comments EGFR Routine 12/14/2024 9:12 AM PARQUET FLOOR LAYER'S HELPER DIFFERENTIAL AUTO Routine 12/14/2024 9:1 2 AM PARQUET FLOOR LAYER'S HELPER VITAMIN D 25 HYDROXY Routine 12/14/2024 9:12 AM PARQUET FLOOR LAYER'S HELPER VITAMIN B12 Routine 12/14/2024 9:12 AM PARQUET FLOOR LAYER'S HELPER T4, FREE Routine 12/14/2024 9:12 AM PARQUET FLOOR LAYER'S HELPER THYROID FUNCTION CASCADE Routine 12/14/2024 9:12 AM PARQUET FLOOR LAYER'S HELPER HEMOGLOBIN A1C Routine 12/14/2024 9:12 AM PARQUET FLOOR LAYER'S HELPER LIPID PANEL Routine 12/14/2024 9:12 AM PARQUET FLOOR LAYER'S HELPER COMPREHENSIVE METABOLIC PANEL Routine 12/14/2024 9:12 AM PARQUET FLOOR LAYER'S HELPER CBC WITH AUTO DIFFERENTIAL Routine 12/14/2024 9:12 AM PARQUET FLOOR LAYER'S HELPER STOOL DNA COLOGUARD Routine 07/30/2023 8:50 AM CDT Colon cancer screening SCREENING MAMMOGRAM BILATERAL W HERBERT Schedule Routine, Read Routine (OP Routine) 01/12/2018 1:35 PM CDT Screening breast examination HM COLONOSCOPY Routine 01/12/2018 HM PAP SMEAR WITH HPV Routine 06/19/2017 from Last 3 Months or Most Recently Relevant to Health Maintenance Results * eGFR (12/14/2024 9:12 AM PARQUET FLOOR LAYER'S HELPER) eGFR 78 >=60 mL/min/1. 73 m2 Comment: [...] last reviewed 2021. Blood 12/14/2024 9:12 AM PARQUET FLOOR LAYER'S HELPER 12/14/2024 9:28 AM PARQUET FLOOR LAYER'S HELPER Hillary Cordova NP LAB BLOOD ORDERABLES Final Result [facility] ([place]) 1 [facility] Department [place] [address] * Differential, auto (12/14/2024 9:12 AM PARQUET FLOOR LAYER'S HELPER) Neutrophil abs 4.0 1.5 - 6.5 K/cumm [...] revised on 2018. Blood 12/14/2024 9:12 AM PARQUET FLOOR LAYER'S HELPER 12/14/2024 9:28 AM PARQUET FLOOR LAYER'S HELPER us Hillary Cordova NP LAB BLOOD ORDERABLES Final Result [facility] ([place]) 1 [facility] Department [place] [address] * Thyroid Function [place] (12/14/2024 9:12 AM PARQUET FLOOR LAYER'S HELPER) TSH 3.63 0.30 - 4.20 mcIUnit/mL Blood 12/14/2024 9:12 AM PARQUET FLOOR LAYER'S HELPER 12/14/2024 9:28 AM PARQUET FLOOR LAYER'S HELPER us Hillary Cordova NP LAB BLOOD ORDERABLES Final Result [facility] ([place]) 1 [facility] [place] [address] * CBC with auto differential (12/14/2024 9:12 AM PARQUET FLOOR LAYER'S HELPER) WBC 6.8 3.8 - 9.9 K/cumm Hgb [...] [facility] ([place]) Blood 12/14/2024 9:12 AM PARQUET FLOOR LAYER'S HELPER 12/14/2024 9:28 AM PARQUET FLOOR LAYER'S HELPER us Hillary Cordova NP LAB BLOOD ORDERABLES Final Result [facility] ([place]) 1 [facility] [place] [address] * Vitamin D 25 hydroxy (12/14/2024 9:12 AM PARQUET FLOOR LAYER'S HELPER) Vitamin D 25-OH 71 30 - 80 ng/mL Blood 12/14/2024 9:12 AM PARQUET FLOOR LAYER'S HELPER 12/14/2024 9:28 AM PARQUET FLOOR LAYER'S HELPER Hillary Cordova NP LAB BLOOD ORDERABLES Final Result [facility] 1 [facility] [place] [address] * T4, free (12/14/2024 9:12 AM PARQUET FLOOR LAYER'S HELPER) [facility] Free T4 1.06 0.90 - 1.70 ng/dL Blood 12/14/2024 9:12 AM PARQUET FLOOR LAYER'S HELPER 12/14/2024 9:28 AM PARQUET FLOOR LAYER'S HELPER Hillary Cordova NP LAB BLOOD ORDERABLES Final Result Performing Organization Address [facility] de Phone Number [facility] ([place]) [address] [place] [address] * Hemoglobin A1c (12/14/2024 9:12 AM PARQUET FLOOR LAYER'S HELPER) [facility] Hgb A1C 5.4 4.0 - 5.6 % Estimated Average Glucose 108 mg/dL [facility] ([place]) Comment: The ADA recommends reporting an estimated Average Glucose (eAG) with all Hemoglobin A1c results using the equation derived from a study of 507 normal and diabetic adults. Minority populations were underrepresented and children were not included. (Diabetes Care 31:6997-2033, 2008). The eAG is not equivalent to a fasting glucose. Blood 12/14/2024 9:12 AM PARQUET FLOOR LAYER'S HELPER 12/14/2024 9:28 AM PARQUET FLOOR LAYER'S HELPER Hillary Cordova NP LAB BLOOD ORDERABLES Final Result [facility] ([place]) [address] [place] [address] * Vitamin B12 (12/14/2024 9:12 AM PARQUET FLOOR LAYER'S HELPER) [facility] Vitamin B12 874 230 - 1,250 pg/mL Blood 12/14/2024 9:12 AM PARQUET FLOOR LAYER'S HELPER 12/14/2024 9:28 AM PARQUET FLOOR LAYER'S HELPER us Hillary Cordova NP LAB BLOOD ORDERABLES Final Result [facility] ([place]) 1 [facility] Department [place] [address] * (ABNORMAL) Lipid panel (12/14/2024 9:12 AM PARQUET FLOOR LAYER'S HELPER) Cholesterol 259(H) 30 - 199 mg/dL Comment: [...] [facility] ([place]) Blood 12/14/2024 9:12 AM PARQUET FLOOR LAYER'S HELPER 12/14/2024 9:28 AM PARQUET FLOOR LAYER'S HELPER Hillary Cordova NP LAB BLOOD ORDERABLES Final Result [facility] ([place]) 1 [facility] Department [place] [address] * Comprehensive metabolic panel (12/14/2024 9:12 AM PARQUET FLOOR LAYER'S HELPER) Sodium 141 135 - 145 mmol/L Potassium, [...] classification and Diagnosis of Diabetes Diabetes Care 202; 46: S19-S40. Current interpretive data was last [...] [facility] ([place]) Blood 12/14/2024 9:12 AM PARQUET FLOOR LAYER'S HELPER 12/14/2024 9:28 AM PARQUET FLOOR LAYER'S HELPER us Hillary J. Art AVIATION ENGINEER LAB BLOOD ORDERABLES Final Result [facility] [place]) 1 [facility] Department [place] [address] * Stool DNA - Cologuard (07/30/2023 8:50 AM CDT) Stool DNA - Cologuard Negative Negative [employer] (CLIA #:[id number]) Comment: NEGATIVE TEST RESULT. A negative Cologuard [...] (Jayla Bennett al, N Engl J Med 2014;370(14):7250-5820) The normal value (reference range) for this assay is negative. COLOGUARD RE-SCREENING RECOMMENDATION: Periodic colorectal cancer screening is an important part of preventive healthcare for asymptomatic individuals at average risk for colorectal cancer. Following a negative Cologuard result, the [place] Cancer Society and U.S. Multi-Society Task Force screening guidelines recommend a Cologuard re-screening interval of 3 years. References: [place] [employer] Society Guideline for Colorectal Cancer Screening: https://www.cancer.org/cancer/amizz-symgyd-tpyrra/hmxihgbor-hdrvzyxys-zjhuzrj/ac s-rec ommendations.html.; Christiano DK, Kade CR, Kami GutierrezK, Colorectal Cancer Screening: Recommendations for Physicians and Patients from the U.S. Multi-Society Task Force on Colorectal Cancer Screening , Am J Gastroenterology 2017; 112:5093-4457. TEST DESCRIPTION: Composite algorithmic analysis of stool [...] (Jayla Bennett al, N Engl J Med 2014;370(14):8386-7260.) Cologuard may produce a false negative or false positive result (no colorectal cancer or precancerous polyp present at colonoscopy follow up). A negative Cologuard test result does not guarantee the absence of CRC or advanced adenoma (pre-cancer). The current Cologuard screening interval is every 3 years. ([place] Cancer Society and U.S. Multi-Society Task Force). Cologuard performance data in a 10,000 patient pivotal study using colonoscopy as the reference method can be accessed at the following location: www.MetaCarta.Biopharmacopae/results. Additional description of the Cologuard test process, warnings and precautions can be found at www.cologuard.com. Stool 07/30/2023 8:50 AM CDT 08/01/2023 4:12 AM CDT us Jania Johnson MD LAB BODY FLUIDS AND STOOLS O RDERABLES Final Result [employer] (CLIA #:[id number]) [place] [address] * Screening Mammogram Bilateral W Herbert (01/12/2018 [...] Most Recently Relevant to Health Maintenance Insurance [facility] CHOICE PLUS [facility] CHOICE PLUS WORKERS COMPENSATION GENERIC Care Teams Linter Operator Relationship Specialty Start Date End Date Jania Johnson MD PCP - General Family Practice 05/11/22 Tanya Colin, PT Physical Therapist Physical Therapy 05/09/18 Katty Dowell PT Physical Therapist Physical Therapy 05/15/18
--- OUTSIDE RECORDS SUMMARY | 2025-02-12 09:53 | XMS_ITS | Clinical Summary ---
Author Organization [facility] Address [address] [place] [phone] Care Team Providers Care Mechatronics Engineer Name Role Phone Ruiz Krishna MD Primary Care Provider [phone] Allergies Active Allergy Reactions Criticality Noted Date [...] 02/07/2025 3:00 PM CDT Office Visit [facility] Oncology and Hematology - [place] [address] [address] [phone] Rg Potter MD Malignant neoplasm of upper-outer [...] on file Legal Sex Female 5:41 AM QUALITY ASSURANCE QA LAB TECHNICIAN Gender Identity Not on file Sexual [...] 02/28/2025 4:30 PM CDT Telephone Check Up [facility] Oncology and Hematology [place] [address] [address]va [address] [place] [phone] Rg Potter MD [facility] [address] [place] [phone] 03/21/2025 10:00 AM CDT Office Visit [facility] Oncology and Hematology [place] Awais [address] [place] [phone] Rg Potter MD [facility] [address] [place] [phone] Health Maintenance Due Date Last Done Comments [...] exists INFLUENZA VACCINE (#1) 2024 08/08/2015, 2011 Procedures Procedure Name Priority Date/Time Associated Diagnosis Comments MAMMO SCREEN BILAT W OR WO CAD Routine 01/27/2010 from Last 3 Months or Most Recently Relevant to Health Maintenance Results * MAMMO DIGITAL SCREEN BILAT (01/27/2010) Anatomical Region Laterality Modality Breast Bilateral Other us Abstract Provider MAMMO ORDERABLES Final Result from Last 3 Months or Most Recently Relevant to Health Maintenance Insurance [employer] [facility] bizsol [id number] Care Teams Mechatronics Engineer Relationship Specialty Start Date End Date Ruiz Krishna MD [address] [place] [address] [facility] - General 12/11/08
--- OUTSIDE RECORDS SUMMARY | 2025-02-12 09:53 | XMS_ITS | Encounter Summary ---
Author Organization [facility] Address 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) Social History Tobacco Use Types Packs/Day Years Used Date Smoking Tobacco: Never Assessed Comments Unknown Sex and Gender Information Value Date Recorded Sex Assigned at Not on file Legal Sex Female 5:41 AM WOODS OVERSEER Gender Identity Not on file Sexual Orientation Not on file documented as of this encounter Plan of Treatment Upcoming Encounters Date Type Department Care Team (Late st Contact Info) Description 02/28/2025 4:30 PM CDT Telephone Check Up [facility] Oncology and Hematology - [place] Awais [address] [place] [address] Rg Potter MD [address] [place] [address] 03/21/2025 10:00 AM CDT Office Visit [facility] Oncology and Hematology - Colin Ebony [address] [place] [address] Rg Potter MD [address] [facility] [place] [facility] [address] [place] [phone] documented as of this encounter Visit Diagnoses Diagnosis Malignant neoplasm of upper-inner quadrant of female breast (CMS/HCC) Malignant neoplasm of upper-inner quadrant of female breast documented in this encounter Care Teams Yacht Builder Relationship Specialty Start Date End Date Ruiz Krishna MD [address] [facility] [place] [address] PCP - General 12/11/08 documented as of this encounter
--- OUTSIDE RECORDS SUMMARY | 2025-02-12 09:53 | XMS_ITS | Encounter Summary ---
Author Organization [facility] Address 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) Social History Tobacco Use Types Packs/Day Years Used Date Smoking Tobacco: Never Assessed Comments Unknown Sex and Gender Information Value Date Recorded Sex Assigned at Not on file Legal Sex Female 5:41 AM SURVEILLANCE SPECIALIST Gender Identity Not on file Sexual Orientation Not on file documented as of this encounter Plan of Treatment Upcoming Encounters Date Type Department Care Team (Late st Contact Info) Description 02/28/2025 4:30 PM CDT Telephone Check Up [facility] Oncology and Hematology - Colin Awais [address] [place] [address] Rg Potter MD [address] [place] [address] 03/21/2025 10:00 AM CDT Office Visit [facility] Oncology and Hematology - Colin Ebony [address] [place] [address] Rg Potter MD 222 [facility] [address] [place] [phone] documented as of this encounter Visit Diagnoses Diagnosis Malignant neoplasm of upper-inner quadrant of female breast (CMS/HCC) Malignant neoplasm of upper-inner quadrant of female breast documented in this encounter Care Teams High School Library Media Specialist Relationship Specialty Start Date End Date Ruiz Krishna MD [address] [facility] [place] [address] PCP - General 12/11/08 documented as of this encounter
== END 2025-02-12 09:22 | disposition home or self-care (01) ==
PROVIDERS: PCP Nurse Practitioner; Visit Provider Surgery
DX: R59.0 Localized enlarged lymph nodes (principal)
CPT/HCPCS: 20999; 76942; 88305; 88342

== ENCOUNTER 2025-02-22 08:23 | Outpatient (CLI) | payer OTHER, SELFPAY ==
--- NOTE | 2025-02-22 08:00 | ECG_ITS ---
Test Date: 2025-02-22 08:41:14 Measurements Intervals [place] Rate: 67 P: 19 MD: 147 QRS: -11 QRSD: 86 T: 12 QT: 382 QTc: 405 Interpretive Statements SINUS RHYTHM VOLTAGE CRITERIA FOR LVH BORDERLINE R WAVE PROGRESSION, ANTERIOR LEADS MINIMAL Q WAVES- HIGH LATERAL LEADS BORDERLINE ECG No previous ECG available for comparison Electronically Signed On 02-22-2025 08:44:57 CDT by Robert James D.O.
--- OUTSIDE RECORDS SUMMARY | 2025-02-22 08:33 | XMS_ITS | Encounter Summary ---
Author Organization [facility] Address 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) Social History Tobacco Use Types Packs/Day Years Used Date Smoking Tobacco: Never Assessed Comments Unknown Sex and Gender Information Value Date Recorded Sex Assigned at Not on file Legal Sex Female 5:41 AM EMT I/99 Gender Identity Not on file Sexual Orientation Not on file documented as of this encounter Plan of Treatment Upcoming Encounters Date Type Department Care Team (Late st Contact Info) Description 02/28/2025 4:30 PM CDT Telephone Check Up [facility] Oncology and Hematology - Colin Awais [address] [place] [address] Rg Potter MD [address] [place] [address] 03/21/2025 10:00 AM CDT Office Visit [facility] Oncology and Hematology - Colin Ebony [address] [place] [address] Rg Potter MD 222 [facility] [address] [place] [phone] documented as of this encounter Visit Diagnoses Diagnosis Malignant neoplasm of upper-inner quadrant of female breast (CMS/HCC) Malignant neoplasm of upper-inner quadrant of female breast documented in this encounter Care Teams Construction Representative Relationship Specialty Start Date End Date Ruiz Krishna MD [address] [place] [address] PCP - General 12/11/08 documented as of this encounter
--- OUTSIDE RECORDS SUMMARY | 2025-02-22 08:33 | XMS_ITS | Clinical Summary ---
Author Organization [employer] [address] Address [address] [place] [address] Care Team Providers Care Plateman Name Role Phone Ruiz Krishna MD Primary Care Provider [phone] Allergies Active Allergy Reactions Criticality Noted Date [...] Encounters Date Type Department Care Team Description 02/14/2025 Abstract [facility] Oncology and Hematology [facility] [address] [place] [address] Rg Potter MD 02/12/2025 External Device Data [place] ABSTRACTION Provider, Abstract 02/12/2025 External Device Data [place] AB[place]CTION Provider, Abstract 02/12/2025 External Device Data [place] ABSTRACTION Provider, Abstract 02/07/2025 3:00 PM CDT Office Visit [facility] Oncology and Hematology [facility] [address] [place] [address] Rg Potter MD Malignant neoplasm of upper-outer [...] on file Legal Sex Female 5:41 AM LANDSCAPE MAINTENANCE INTERNSHIP Gender Identity Not on file Sexual Orientation [...] 02/28/2025 4:30 PM CDT Telephone Check Up [facility] Oncology and Hematology Colin [address] [place] [phone] Rg Potter MD [address] [place] [phone] 03/21/2025 10:00 AM CDT Office Visit [facility] Oncology and Hematology - Colin [address] [place] [phone] Rg Potter MD [address] [place] [phone] Health Maintenance Due Date Last Done Comments [...] Most Recently Relevant to Health Maintenance Insurance [employer] [id number] Care Teams Plateman Relationship Specialty Start Date End Date Ruiz Krishna MD [address] [place] [address] PCP - General 12/11/08
--- OUTSIDE RECORDS SUMMARY | 2025-02-22 08:33 | XMS_ITS | Clinical Summary ---
Author Organization [facility] Address [address] [place] [address] Care Team Providers Care Cloth Cutting Machine Operator Name Role Phone Tanya Colin PT [...] 12/21/2017 Assessment & Plan (12/21/2017 8:48 AM TELEPHONE OPERATORS SUPERVISOR): Obesity is improving with lifestyle modifications. Discussed [...] Department Care Team Description 12/14/2024 8:55 AM TELEPHONE OPERATORS SUPERVISOR Lab [address] [address] from Last 3 Months Immunizations Immunization Administration [...] on file Legal Sex Female 4:22 PM TELEPHONE OPERATORS SUPERVISOR Gender Identity Not on file Sexual Orientation [...] Diagnosis Comments EGFR Routine 12/14/2024 9:12 AM TELEPHONE OPERATORS SUPERVISOR DIFFERENTIAL AUTO Routine 12/14/2024 9:1 2 AM TELEPHONE OPERATORS SUPERVISOR VITAMIN D 25 HYDROXY Routine 12/14/2024 9:12 AM TELEPHONE OPERATORS SUPERVISOR VITAMIN B12 Routine 12/14/2024 9:12 AM TELEPHONE OPERATORS SUPERVISOR T4, FREE Routine 12/14/2024 9:12 AM TELEPHONE OPERATORS SUPERVISOR THYROID FUNCTION CASCADE Routine 12/14/2024 9:12 AM TELEPHONE OPERATORS SUPERVISOR HEMOGLOBIN A1C Routine 12/14/2024 9:12 AM TELEPHONE OPERATORS SUPERVISOR LIPID PANEL Routine 12/14/2024 9:12 AM TELEPHONE OPERATORS SUPERVISOR COMPREHENSIVE METABOLIC PANEL Routine 12/14/2024 9:12 AM TELEPHONE OPERATORS SUPERVISOR CBC WITH AUTO DIFFERENTIAL Routine 12/14/2024 9:12 AM TELEPHONE OPERATORS SUPERVISOR STOOL DNA COLOGUARD Routine 07/30/2023 8:50 AM CDT Colon cancer screening SCREENING MAMMOGRAM BILATERAL W HERBERT Schedule Routine, Read Routine (OP Routine) 01/12/2018 1:35 PM CDT Screening breast examination HM COLONOSCOPY Routine 01/12/2018 HM PAP SMEAR WITH HPV Routine 06/19/2017 from Last 3 Months or Most Recently Relevant to Health Maintenance Results * eGFR (12/14/2024 9:12 AM TELEPHONE OPERATORS SUPERVISOR) eGFR 78 >=60 mL/min/1. 73 m2 Comment: [...] last reviewed 2021. Blood 12/14/2024 9:12 AM TELEPHONE OPERATORS SUPERVISOR 12/14/2024 9:28 AM TELEPHONE OPERATORS SUPERVISOR Hillary Cordova NP LAB BLOOD ORDERABLES Final Result [facility] ([place]) 1 [facility] [place] [address] * Differential, auto (12/14/2024 9:12 AM TELEPHONE OPERATORS SUPERVISOR) Neutrophil abs 4.0 1.5 - 6.5 K/cumm [...] revised on 2018. Blood 12/14/2024 9:12 AM TELEPHONE OPERATORS SUPERVISOR 12/14/2024 9:28 AM TELEPHONE OPERATORS SUPERVISOR us Hillary Cordova NP LAB BLOOD ORDERABLES Final Result [facility] ([place]) 1 [facility] [place] [address] * Thyroid Function [place] (12/14/2024 9:12 AM TELEPHONE OPERATORS SUPERVISOR) TSH 3.63 0.30 - 4.20 mcIUnit/mL Blood 12/14/2024 9:12 AM TELEPHONE OPERATORS SUPERVISOR 12/14/2024 9:28 AM TELEPHONE OPERATORS SUPERVISOR us Hillary Cordova NP LAB BLOOD ORDERABLES Final Result [facility] ([place]) 1 [facility] [place] [address] * CBC with auto differential (12/14/2024 9:12 AM TELEPHONE OPERATORS SUPERVISOR) WBC 6.8 3.8 - 9.9 K/cumm Hgb [...] [facility] ([place]) Blood 12/14/2024 9:12 AM TELEPHONE OPERATORS SUPERVISOR 12/14/2024 9:28 AM TELEPHONE OPERATORS SUPERVISOR us Hillary Cordova NP LAB BLOOD ORDERABLES Final Result [facility] ([place]) 1 [facility] [place] [address] * Vitamin D 25 hydroxy (12/14/2024 9:12 AM TELEPHONE OPERATORS SUPERVISOR) Vitamin D 25-OH 71 30 - 80 ng/mL Blood 12/14/2024 9:12 AM TELEPHONE OPERATORS SUPERVISOR 12/14/2024 9:28 AM TELEPHONE OPERATORS SUPERVISOR Hillary Corodva NP LAB BLOOD ORDERABLES Final Result [facility] [place] 1 [facility] [place] [address] * T4, free (12/14/2024 9:12 AM TELEPHONE OPERATORS SUPERVISOR) [facility] Free T4 1.06 0.90 - 1.70 ng/dL Blood 12/14/2024 9:12 AM TELEPHONE OPERATORS SUPERVISOR 12/14/2024 9:28 AM TELEPHONE OPERATORS SUPERVISOR Hillary Cordova NP LAB BLOOD ORDERABLES Final Result Performing Organization Address [facility] de Phone Number RIGOBERTO IRIZARRY ([place]) [address] [place] [address] * Hemoglobin A1c (12/14/2024 9:12 AM TELEPHONE OPERATORS SUPERVISOR) [facility] Hgb A1C 5.4 4.0 - 5.6 % Estimated Average Glucose 108 mg/dL NELYKATHERINE IRIZARR[facility] ([place]) Comment: The ADA recommends reporting an estimated Average Glucose (eAG) with all Hemoglobin A1c results using the equation derived from a study of 507 normal and diabetic adults. Minority populations were underrepresented and children were not included. (Diabetes Care 31:1315-5868, 2008). The eAG is not equivalent to a fasting glucose. Blood 12/14/2024 9:12 AM TELEPHONE OPERATORS SUPERVISOR 12/14/2024 9:28 AM TELEPHONE OPERATORS SUPERVISOR Hillary Cordova NP LAB BLOOD ORDERABLES Final Result [facility]ERTO I[facility] ([place]) 1 [place] [address] * Vitamin B12 (12/14/2024 9:12 AM TELEPHONE OPERATORS SUPERVISOR) [facility] Vitamin B12 874 230 - 1,250 pg/mL Blood 12/14/2024 9:12 AM TELEPHONE OPERATORS SUPERVISOR 12/14/2024 9:28 AM TELEPHONE OPERATORS SUPERVISOR us Hillary Cordova NP LAB BLOOD ORDERABLES Final Result [facility] ED[facility] ([place]) 1 [facility] [place] [address] * (ABNORMAL) Lipid panel (12/14/2024 9:12 AM TELEPHONE OPERATORS SUPERVISOR) Cholesterol 259(H) 30 - 199 mg/dL Comment: [...] revised on 2018. HDL 81 >=40 mg/dL IRGOBERTO IRIZARR[facility] ([place]) Comment: Interpretive Data Ages < [...] MARLENE IRIZARRY ([place]) Blood 12/14/2024 9:12 AM TELEPHONE OPERATORS SUPERVISOR 12/14/2024 9:28 AM TELEPHONE OPERATORS SUPERVISOR Hillary Cordova NP LAB BLOOD ORDERABLES Final Result [facility] ([place]) 1 [facility] [place] [address] * Comprehensive metabolic panel (12/14/2024 9:12 AM TELEPHONE OPERATORS SUPERVISOR) Sodium 141 135 - 145 mmol/L Potassium, [...] [facility] ([place]) Blood 12/14/2024 9:12 AM TELEPHONE OPERATORS SUPERVISOR 12/14/2024 9:28 AM TELEPHONE OPERATORS SUPERVISOR us Hillary J. Art [employer]LECT[employer] FRONT LAB BLOOD ORDERABLES Final Result RIGOBERTO IRIZARRY [place]) 1 [facility] [place] [address] * Stool DNA - Cologuard (07/30/2023 8:50 AM CDT) Stool DNA - Cologuard Negative Negative [facility] (CLIA #:[id number]) Comment: NEGATIVE TEST RESULT. A negative Cologuard [...] (Jayla Bennett al, N Engl J Med 2014;370(14):4706-2639) The normal value (reference range) for this assay is negative. COLOGUARD RE-SCREENING RECOMMENDATION: Periodic colorectal cancer screening is an important part of preventive healthcare for asymptomatic individuals at average risk for colorectal cancer. Following a negative Cologuard result, the [place] Cancer Society and U.S. Multi-Society Task Force screening guidelines recommend a Cologuard re-screening interval of 3 years. References: [place] [employer] Society Guideline for Colorectal Cancer Screening: https://www.cancer.org/cancer/zwbao-kxzhqr-xxanrb/afamewgof-bvoyduzxt-ewtyder/ac s-rec ommendations.html.; Christiano DK, Kade CR, Kami GutierrezK, Colorectal Cancer Screening: Recommendations for Physicians and Patients from the U.S. Multi-Society Task Force on Colorectal Cancer Screening , Am J Gastroenterology 2017; 112:6135-2781. TEST DESCRIPTION: Composite algorithmic analysis of stool [...] (Jayla Bennett al, N Engl J Med 2014;370(14):6672-9799.) Cologuard may produce a false negative or false positive result (no colorectal cancer or precancerous polyp present at colonoscopy follow up). A negative Cologuard test result does not guarantee the absence of CRC or advanced adenoma (pre-cancer). The current Cologuard screening interval is every 3 years. ([place] Cancer Society and U.S. Multi-Society Task Force). Cologuard performance data in a 10,000 patient pivotal study using colonoscopy as the reference method can be accessed at the following location: www.[employer].Spot Runner/results. Additional description of the Cologuard test process, warnings and precautions can be found at www.cologuard.com. Stool 07/30/2023 8:50 AM CDT 08/01/2023 4:12 AM CDT us Jania Johnson MD LAB BODY FLUIDS AND STOOLS O RDERABLES Final Result [facility] (CLIA #:[id number]) [place] [address] * Screening Mammogram Bilateral W Herbert (01/12/2018 [...] Relevant to Health Maintenance Insurance [facility] [employer] [facility] [employer] COMPENSATION GENERIC Care Teams Cloth Cutting Machine Operator Relationship Specialty Start Date End Date Jania Johnson MD PCP - General Family Practice 05/11/22 Tanya Colin, PT Physical Therapist Physical Therapy 05/09/18 Katty Dowell PT Physical Therapist Physical Therapy 05/15/18
--- OUTSIDE RECORDS SUMMARY | 2025-02-22 08:33 | XMS_ITS | Encounter Summary ---
Author Organization [facility] Address 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/HCC) Social History Tobacco Use Types Packs/Day Years Used Date Smoking Tobacco: Never Assessed Comments Unknown Sex and Gender Information Value Date Recorded Sex Assigned at Not on file Legal Sex Female 5:41 AM BATTERY STACKER Gender Identity Not on file Sexual Orientation Not on file documented as of this encounter Plan of Treatment Upcoming Encounters Date Type Department Care Team (Late st Contact Info) Description 02/28/2025 4:30 PM CDT Telephone Check Up [facility] Oncology and Hematology - Colin [address]ais [address] [place] [address] Rg Potter MD [address] [employer] [address] [place] [address] 03/21/2025 10:00 AM CDT Office Visit [facility] Oncology and Hematology - Colin Ebony [address] [place] [address] Rg Potter MD 222 [facility] 100 [place] [address] documented as of this encounter Visit Diagnoses Diagnosis Malignant neoplasm of upper-inner quadrant of female breast (CMS/HCC) Malignant neoplasm of upper-inner quadrant of female breast documented in this encounter Care Teams Vp Platforms Relationship Specialty Start Date End Date Ruiz Krishna MD [address] [facility] [place] [address] PCP - General 12/11/08 documented as of this encounter
--- OUTSIDE RECORDS SUMMARY | 2025-02-22 08:33 | XMS_ITS | Clinical Summary ---
Author Organization [facility] Address [address] [place] [address] Phone Care Team Providers Care Aquatic Performer Name Role Phone Ruiz Krishna MD Primary Care Provider [phone] Family History Medical History Relation Name Comments [...] general adult medical examination w/o abnormal findings [facility] SCREENING BILATERAL DIGITAL W CAD Routine 03/09/2016 12:04 PM CDT Visit for screening mammogram from Last 3 Months or Most Recently Relevant to Health Maintenance Results * HEPATITIS C ANTIBODY (02/10/2017 11:11 AM CDT) hepatitis C antibody 0.07 <1 S/CO 02/10/2017 11:19 PM CDT [facility] Comment: Signal/Cutoff ratio < 0.79 is Nondetected Signal/Cutoff ratio 0.80-0.99 is Grayzone Signal/Cutoff ratio > 0.99 is Detected Supplemental assays are recommended if signal/cutoff ratio is >/=1.00. Signal/cutoff ratio result >/= 5.00 is 97% predictive of positivity for recombinant immunoblot assay (RIBA) and will be reported to the [place] Department of Public Health as required. Blood specimen (specimen) Venipuncture / Unknown 02/10/2017 11:11 AM CDT 02/10/2017 2:18 PM CDT us Ruiz Krishna MD CHEMISTRY ORDERABLES Final Resul t [facility] [address] [place] [address], * QUINN SCREENING BILATERAL DIGITAL W CAD [...] is made to exams dated: 12/16/2014, 09/21/2013 [facility], and 02/22/2011 [facility]. BREAST TISSUE:There are scattered fibroglandular densities in [...] exam. Electronically signed by: Sammy lancaster/mervat:03/09/2016 13:34:43 Ball Warper Tender: Margaret YUNG(Nicole)(Mao), [facility] letter sent: Normal Exam Reading location: [facility] BI-RADS: 1 Negative Procedure Note aSmmy Carballo MD - 03/10/2016 - QUINN SCREENING [...] is made to exams dated: 12/16/2014, 09/21/2013 [facility], and 02/22/2011 [facility]. BREAST TISSUE:There are scattered fibroglandular densities in [...] exam. Electronically signed by: Sammy lancaster/mervat:03/09/2016 13:34:43 Ball Warper Tender: Margaret YUNG(Nicole)(Mao), [facility] letter sent: Normal Exam Reading location: [facility] BI-RADS: 1 Negative us Sammy Carballo MD IMG MAMMO ORDERABLES Fin al Result from Last 3 Months or Most Recently Relevant to Health Maintenance Care Teams Aquatic Performer Relationship Specialty Start Date End Date Ruiz Krishna MD [address] [place] [address] PCP - General Internal Medicine 02/10/16
--- OUTSIDE RECORDS SUMMARY | 2025-02-22 08:33 | XMS_ITS | Referral Summary ---
Author Organization [facility] Office Building B Address [address] [place] [address] Care Team Providers Care Stretch Press Operator Name Role Phone Tanya Colin PT Unavailable Unavailable Katty Dowell PT Unavailable Unavailable Jania Johnson MD Primary Care Provider [phone] Encounters Date Type Department Care Team Description 12/14/2024 8:55 AM MEDICAL RESEARCH ASSISTANT Lab [address] [address] from Last 3 Months Allergies Active Allergy [...] 12/21/2017 Assessment & Plan (12/21/2017 8:48 AM MEDICAL RESEARCH ASSISTANT): Obesity is improving with lifestyle modifications. Discussed [...] on file Legal Sex Female 4:22 PM MEDICAL RESEARCH ASSISTANT Gender Identity Not on file Sexual Orientation [...] Diagnosis Comments EGFR Routine 12/14/2024 9:12 AM MEDICAL RESEARCH ASSISTANT DIFFERENTIAL AUTO Routine 12/14/2024 9:1 2 AM MEDICAL RESEARCH ASSISTANT VITAMIN D 25 HYDROXY Routine 12/14/2024 9:12 AM MEDICAL RESEARCH ASSISTANT VITAMIN B12 Routine 12/14/2024 9:12 AM MEDICAL RESEARCH ASSISTANT T4, FREE Routine 12/14/2024 9:12 AM MEDICAL RESEARCH ASSISTANT THYROID FUNCTION CASCADE Routine 12/14/2024 9:12 AM MEDICAL RESEARCH ASSISTANT HEMOGLOBIN A1C Routine 12/14/2024 9:12 AM MEDICAL RESEARCH ASSISTANT LIPID PANEL Routine 12/14/2024 9:12 AM MEDICAL RESEARCH ASSISTANT COMPREHENSIVE METABOLIC PANEL Routine 12/14/2024 9:12 AM MEDICAL RESEARCH ASSISTANT CBC WITH AUTO DIFFERENTIAL Routine 12/14/2024 9:12 AM MEDICAL RESEARCH ASSISTANT STOOL DNA COLOGUARD Routine 07/30/2023 8:50 AM CDT Colon cancer screening SCREENING MAMMOGRAM BILATERAL W HERBERT Schedule Routine, Read Routine (OP Routine) 01/12/2018 1:35 PM CDT Screening breast examination HM COLONOSCOPY Routine 01/12/2018 HM PAP SMEAR WITH HPV Routine 06/19/2017 from Last 3 Months or Most Recently Relevant to Health Maintenance Results * eGFR (12/14/2024 9:12 AM MEDICAL RESEARCH ASSISTANT) eGFR 78 >=60 mL/min/1. 73 m2 Comment: [...] last reviewed 2021. Blood 12/14/2024 9:12 AM MEDICAL RESEARCH ASSISTANT 12/14/2024 9:28 AM MEDICAL RESEARCH ASSISTANT us Hillary Cordova NP LAB BLOOD ORDERABLES Final Result RIGOBERTO COUNT INCLUDES THE [facility] ([place]) 1 [facility] Department [place] [address] * Differential, auto (12/14/2024 9:12 AM MEDICAL RESEARCH ASSISTANT) Pathologist [facility] Neutrophil abs 4.0 1.5 - 6.5 K/cumm Imm gran abs 0.0 0.0 - 0.1 K/cumm [facility] ([place]) Lymphocyte abs 2.3 0.8 - 3.3 K/cumm [facility] ([place]) Monocyte abs 0.4 0.2 - 0.8 K/cumm [facility] ([place]) Eosinophil abs 0.1 0.0 - 0.5 K/cumm [facility] ([place]) Basophil abs 0.1 0.0 - 0.1 K/cumm [facility] ([place]) Neutrophil pct 58.7 % [facility] ([place]) Comment: Interpretive Data Percent cell count reference [...] revised on 2018. Blood 12/14/2024 9:12 AM MEDICAL RESEARCH ASSISTANT 12/14/2024 9:28 AM MEDICAL RESEARCH ASSISTANT Hillary Cordova INFANT AND TODDLER TEACHER LAB BLOOD ORDERABLES Final Result RIGOBERTO EDIE ([place]) 1 [facility] Department of Laboratories [place], [place] [id number] * Thyroid Function [place] (12/14/2024 9:12 AM MEDICAL RESEARCH ASSISTANT) TSH 3.63 0.30 - 4.20 mcIUnit/mL Blood 12/14/2024 9:12 AM MEDICAL RESEARCH ASSISTANT 12/14/2024 9:28 AM MEDICAL RESEARCH ASSISTANT Hillary Cordova INFANT AND TODDLER TEACHER LAB BLOOD ORDERABLES Final Result [facility] ([place]) 1 [facility] [place] [address] * CBC with auto differential (12/14/2024 9:12 AM MEDICAL RESEARCH ASSISTANT) WBC 6.8 3.8 - 9.9 K/cumm Hgb [...] [facility] ([place]) Blood 12/14/2024 9:12 AM MEDICAL RESEARCH ASSISTANT 12/14/2024 9:28 AM MEDICAL RESEARCH ASSISTANT Hillary Cordova NP LAB BLOOD ORDERABLES Final Result RIGOBERTO IRIZARRY ([place]) 1 [facility] [place] [address] * Vitamin D 25 hydroxy (12/14/2024 9:12 AM MEDICAL RESEARCH ASSISTANT) Vitamin D 25-OH 71 30 - 80 ng/mL Blood 12/14/2024 9:12 AM MEDICAL RESEARCH ASSISTANT 12/14/2024 9:28 AM MEDICAL RESEARCH ASSISTANT Hillary Cordova NP LAB BLOOD ORDERABLES Final Result Performing Organization Address City/[facility] Co de Phone Number RIGOBERTO [place]) 1 [place] [address] * T4, free (12/14/2024 9:12 AM MEDICAL RESEARCH ASSISTANT) [facility] Free T4 1.06 0.90 - 1.70 ng/dL Blood 12/14/2024 9:12 AM MEDICAL RESEARCH ASSISTANT 12/14/2024 9:28 AM MEDICAL RESEARCH ASSISTANT Hillary Cordova NP LAB BLOOD ORDERABLES Final Result Performing Organization Address [facility] de Phone Number RIGOBERTO IRIZARRY ([place]) 1 [place] [address] * Hemoglobin A1c (12/14/2024 9:12 AM MEDICAL RESEARCH ASSISTANT) [facility] Hgb A1C 5.4 4.0 - 5.6 % Estimated Average Glucose 108 mg/dL RIGOBERTO IRIZARRY ([place]) Comment: The ADA recommends reporting an estimated Average Glucose (eAG) with all Hemoglobin A1c results using the equation derived from a study of 507 normal and diabetic adults. Minority populations were underrepresented and children were not included. (Diabetes Care 31:9076-2834, 2008). The eAG is not equivalent to a fasting glucose. Blood 12/14/2024 9:12 AM MEDICAL RESEARCH ASSISTANT 12/14/2024 9:28 AM MEDICAL RESEARCH ASSISTANT Hillary Cordova NP LAB BLOOD ORDERABLES Final Result Performing Organization Address [facility] Co de Phone Number RIGOBERTO IRIZARRY ([place]) 1 [place] [address] * Vitamin B12 (12/14/2024 9:12 AM MEDICAL RESEARCH ASSISTANT) [facility] Vitamin B12 874 230 - 1,250 pg/mL Blood 12/14/2024 9:12 AM MEDICAL RESEARCH ASSISTANT 12/14/2024 9:28 AM MEDICAL RESEARCH ASSISTANT us Hillary Cordova NP LAB BLOOD ORDERABLES Final Result RIGOBERTO IRIZARRY ([place]) 1 [facility] Department [place] [address] * (ABNORMAL) Lipid panel (12/14/2024 9:12 AM MEDICAL RESEARCH ASSISTANT) Cholesterol 259(H) 30 - 199 mg/dL Comment: [...] on 2024. Non-HDL Cholesterol 178 mg/dL RIGOBERTO RIIZARRY ([place]) Comment: Interpretive Data Ages < or [...] MARLENE IRIZARRY ([place]) Blood 12/14/2024 9:12 AM MEDICAL RESEARCH ASSISTANT 12/14/2024 9:28 AM MEDICAL RESEARCH ASSISTANT Hillary Cordova NP LAB BLOOD ORDERABLES Final Result [facility] ([place]) 1 [facility] Department [place] [address] * Comprehensive metabolic panel (12/14/2024 9:12 AM MEDICAL RESEARCH ASSISTANT) Sodium 141 135 - 145 mmol/L Potassium, [...] [facility] ([place]) Blood 12/14/2024 9:12 AM MEDICAL RESEARCH ASSISTANT 12/14/2024 9:28 AM MEDICAL RESEARCH ASSISTANT Hillary Cordova NP LAB BLOOD ORDERABLES Final Result RIGOBERTO IRIZARRY [place]) 7 [facility] Department of Laboratories [place], [place] [id number] * Stool DNA - Cologuard (07/30/2023 8:50 AM CDT) Stool DNA - Cologuard Negative Negative A[facility] (CLIA #:[id number]) Comment: NEGATIVE TEST RESULT. A negative Cologuard [...] Randall. et al, N Engl J Med 2014;370(14):3528-8851) The normal value (reference range) for this assay is negative. COLOGUARD RE-SCREENING RECOMMENDATION: Periodic colorectal cancer screening is an important part of preventive healthcare for asymptomatic individuals at average risk for colorectal cancer. Following a negative Cologuard result, the [place] Cancer Society and U.S. Multi-Society Task Force screening guidelines recommend a Cologuard re-screening interval of 3 years. References: [place] [employer] Society Guideline for Colorectal Cancer Screening: https://www.cancer.org/cancer/wsyth-dsgukq-ifzdof/kukhiaexy-updnkhhgw-opvlrmx/ac s-rec ommendations.html.; Christiano DK, Kade CR, Kami GutierrezK, Colorectal Cancer Screening: Recommendations for Physicians and Patients from the U.S. Multi-Society Task Force on Colorectal Cancer Screening , Am J Gastroenterology 2017; 112:7709-3318. TEST DESCRIPTION: Composite algorithmic analysis of stool [...] Jurado et al, N Engl J Med 2014;370(14):2597-9048.) Cologuard may produce a false negative or false positive result (no colorectal cancer or precancerous polyp present at colonoscopy follow up). A negative Cologuard test result does not guarantee the absence of CRC or advanced adenoma (pre-cancer). The current Cologuard screening interval is every 3 years. ([place] Cancer Society and U.S. Multi-Society Task Force). Cologuard performance data in a 10,000 patient pivotal study using colonoscopy as the reference method can be accessed at the following location: www.Optimalize.me/results. Additional description of the Cologuard test process, warnings and precautions can be found at www.[email or web address].com. Stool 07/30/2023 8:50 AM CDT 08/01/2023 4:12 AM CDT us Jania Johnson MD LAB BODY FLUIDS AND STOOLS O RDERABLES Final Result [employer] (CLIA #:[id number]) [place] [address] * Screening Mammogram Bilateral W Herbert (01/12/2018 [...] Most Recently Relevant to Health Maintenance Insurance [facility] CHOICE PLUS [facility] CHO[facility] PLUS WORKERS COMPENSATION GENERIC Care Teams Stretch Press Operator Relationship Specialty Start Date End Date Jania Johnson MD PCP - General Family Practice 05/11/22 Tanya Colin, PT Physical Therapist Physical Therapy 05/09/18 Katty Dowell PT Physical Therapist Physical Therapy 05/15/18
[2025-02-22 08:58] LABS: Hematocrit 40.4 % (37.0-47.0)
== END 2025-02-22 08:24 | disposition home or self-care (01) ==
LOC: ANHSURGERY 08:26
PROVIDERS: Anesthesiology; Visit Provider Surgery
DX: R94.31 Abnormal electrocardiogram [ECG] [EKG] (principal); D49.2 Neoplasm of unspecified behavior of bone, soft tissue, and skin
CPT/HCPCS: 36415; 85014; 85018; 86850; 86900; 86901; 93005

== ENCOUNTER 2025-02-27 00:35 | Day surgery (SDC) | payer OTHER, SELFPAY ==
[2025-02-21 12:42] VITALS: BMI 33.7
--- NOTE | 2025-02-21 13:02 | PC.NURSE ---
Report to the Outpatient Waiting Room, entrance under the green pavilion located off [facility], at time __0600__ on date ___02/27/25__. Planned Procedure Time: __729__.? Time changes happen often and if your time is changed the preop area will call you the afternoon before. - You and your visitor will be asked to self-screen and do not enter if you have any COVID symptoms. Please call surgeon if you need to reschedule. - A mask is optional within the hospital at this time. Patients may have clear liquids (water, carbonated beverages, clear teas, apple juice) until 3 hours prior to surgery with a maximum of 20 ounces. - No food from midnight until time of surgery and no smoking, or chewing tobacco (or any form of nicotine). No chewing gum, candy or mints. Take only the following medications with a SIP of water on the morning of surgery: ____NONE____ DO NOT STOP ANY OF YOUR OTHER PRESCRIPTION MEDICATIONS PRIOR TO SURGERY EXCEPT THE FOLLOWING Hold all vitamins and supplements for 3 days per anesthesiologist. Please no make-up, nail gabonese, hairspray, perfume, deodorant, or body powder the day of surgery.? No jewelry (including any body piercings) or valuables the day of surgery, leave them at home.? Please take a shower or bath the night before, or the morning of, surgery with an antibacterial soap.? Wear comfortable, loose fitting clothing.? - Jewelry must be removed prior to entering the operating room.? Rings and piercings that are not removed may be cut off. - The hospital will not accept responsibility for valuables.? - Please leave all valuables, including medications, at home the day of surgery. If you are going home after surgery, a licensed lumber driver must drive you home.? - NO public transportation without another adult if you receive anesthesia. - We recommend that an adult stay with you for 24 hours following discharge. - We also recommend that you do not drive, make important decision, drink alcoholic beverages, or take any drugs that were not prescribed by your health care provider for at least 24 hours after your discharge time. Follow any additional instructions given to you from your surgeon. Telephone instructions given to ___Ariana Pacheco __and asked if any additional questions and then verbalized understanding. Patient advised to call surgeon office or pre surgery nurse liaison [phone] if any additional questions.
[2025-02-27] VITALS (12 sets, daily range): BP systolic 121–149; BP diastolic 64–84; PULSE 63–81; RESP 11–20; TEMP 36.3–36.8; O2SAT 95–100; BMI 33.2
--- NOTE | ~2025-02-27 | NM_ITS ---
NM sentinel node inject only 02/27/2025 13:54 CDT INDICATION: Left breast cancer TECHNIQUE: 1.08 Millicuries Tc 99m filtered sulfur colloid was injected and 4 aliquots in the anterio r upper outer quadrant of the breast near the areola. Procedure performed by Dr. Al. No images w ere obtained. IMPRESSION: 1: Status post left breast sentinel lymph node radiopharmaceutical injection. Reviewed, dictated and finalized at location A.
--- OUTSIDE RECORDS SUMMARY | 2025-02-27 00:37 | XMS_ITS | Referral Summary ---
Author Organization [facility] Medical Office Building B Address [address] [place] [address] Care Team Providers Care Physical Therapy Instructor Name Role Phone Tanya Colin PT Unavailable Unavailable Katty Dowell PT Unavailable Unavailable Jania Johnson MD Primary Care Provider Encounters Date Type Department Care Team Description 12/14/2024 8:55 AM VP RHEUMATOLOGY Lab [address] [address] from Last 3 Months Allergies Active Allergy [...] 12/21/2017 Assessment & Plan (12/21/2017 8:48 AM VP RHEUMATOLOGY): Obesity is improving with lifestyle modifications. Discussed [...] on file Legal Sex Female 4:22 PM VP RHEUMATOLOGY Gender Identity Not on file Sexual Orientation [...] Diagnosis Comments EGFR Routine 12/14/2024 9:12 AM VP RHEUMATOLOGY DIFFERENTIAL AUTO Routine 12/14/2024 9:1 2 AM VP RHEUMATOLOGY VITAMIN D 25 HYDROXY Routine 12/14/2024 9:12 AM VP RHEUMATOLOGY VITAMIN B12 Routine 12/14/2024 9:12 AM VP RHEUMATOLOGY T4, FREE Routine 12/14/2024 9:12 AM VP RHEUMATOLOGY THYROID FUNCTION CASCADE Routine 12/14/2024 9:12 AM VP RHEUMATOLOGY HEMOGLOBIN A1C Routine 12/14/2024 9:12 AM VP RHEUMATOLOGY LIPID PANEL Routine 12/14/2024 9:12 AM VP RHEUMATOLOGY COMPREHENSIVE METABOLIC PANEL Routine 12/14/2024 9:12 AM VP RHEUMATOLOGY CBC WITH AUTO DIFFERENTIAL Routine 12/14/2024 9:12 AM VP RHEUMATOLOGY STOOL DNA COLOGUARD Routine 07/30/2023 8:50 AM CDT Colon cancer screening SCREENING MAMMOGRAM BILATERAL W HERBERT Schedule Routine, Read Routine (OP Routine) 01/12/2018 1:35 PM CDT Screening breast examination HM COLONOSCOPY Routine 01/12/2018 HM PAP SMEAR WITH HPV Routine 06/19/2017 from Last 3 Months or Most Recently Relevant to Health Maintenance Results * eGFR (12/14/2024 9:12 AM VP RHEUMATOLOGY) eGFR 78 >=60 mL/min/1. 73 m2 Comment: [...] last reviewed 2021. Blood 12/14/2024 9:12 AM VP RHEUMATOLOGY 12/14/2024 9:28 AM VP RHEUMATOLOGY us Hillary Cordova NP LAB BLOOD ORDERABLES Final Result RIGOBERTO [facility] ([place]) 1 [facility] [place] [address] * Differential, auto (12/14/2024 9:12 AM VP RHEUMATOLOGY) Pathologist [facility] Neutrophil abs 4.0 1.5 - 6.5 K/cumm Imm gran abs 0.0 0.0 - 0.1 K/cumm [facility] ([place]) Lymphocyte abs 2.3 0.8 - 3.3 K/cumm [facility] ([place]) Monocyte abs 0.4 0.2 - 0.8 K/cumm [facility] ([place]) Eosinophil abs 0.1 0.0 - 0.5 K/cumm [facility] ([place]) Basophil abs 0.1 0.0 - 0.1 K/cumm [facility] ([place]) Neutrophil pct 58.7 % [facility] ([place]) Comment: Interpretive Data Percent cell count reference [...] revised on 2018. Blood 12/14/2024 9:12 AM VP RHEUMATOLOGY 12/14/2024 9:28 AM VP RHEUMATOLOGY Hillary Cordova ENVIRONMENTAL HEALTH SAFETY MANAGER LAB BLOOD ORDERABLES Final Result RIGOBERTO EDIE ([place]) 1 [facility] Department of Laboratories [place], [place] [id number] * Thyroid Function [place] (12/14/2024 9:12 AM VP RHEUMATOLOGY) TSH 3.63 0.30 - 4.20 mcIUnit/mL Blood 12/14/2024 9:12 AM VP RHEUMATOLOGY 12/14/2024 9:28 AM VP RHEUMATOLOGY Hillary Cordova ENVIRONMENTAL HEALTH SAFETY MANAGER LAB BLOOD ORDERABLES Final Result [facility] ([place]) 1 [facility] [place] [address] * CBC with auto differential (12/14/2024 9:12 AM VP RHEUMATOLOGY) WBC 6.8 3.8 - 9.9 K/cumm Hgb [...] [facility] ([place]) Blood 12/14/2024 9:12 AM VP RHEUMATOLOGY 12/14/2024 9:28 AM VP RHEUMATOLOGY Hillary Cordova NP LAB BLOOD ORDERABLES Final Result RIGOBERTO IRIZARRY ([place]) 1 [facility] [place] [address] * Vitamin D 25 hydroxy (12/14/2024 9:12 AM VP RHEUMATOLOGY) Vitamin D 25-OH 71 30 - 80 ng/mL Blood 12/14/2024 9:12 AM VP RHEUMATOLOGY 12/14/2024 9:28 AM VP RHEUMATOLOGY Hillary Cordova NP LAB BLOOD ORDERABLES Final Result Performing Organization Address City/[facility] Co de Phone Number RIGOBERTO VALENTINON) 1 [place] [address] * T4, free (12/14/2024 9:12 AM VP RHEUMATOLOGY) [facility] Free T4 1.06 0.90 - 1.70 ng/dL Blood 12/14/2024 9:12 AM VP RHEUMATOLOGY 12/14/2024 9:28 AM VP RHEUMATOLOGY Hillary Cordova NP LAB BLOOD ORDERABLES Final Result Performing Organization Address [facility] de Phone Number RIGOBERTO IRIZARRY ([place]) 1 [place] [address] * Hemoglobin A1c (12/14/2024 9:12 AM VP RHEUMATOLOGY) [facility] Hgb A1C 5.4 4.0 - 5.6 % Estimated Average Glucose 108 mg/dL RIGOBERTO IRIZARRY ([place]) Comment: The ADA recommends reporting an estimated Average Glucose (eAG) with all Hemoglobin A1c results using the equation derived from a study of 507 normal and diabetic adults. Minority populations were underrepresented and children were not included. (Diabetes Care 31:1543-1347, 2008). The eAG is not equivalent to a fasting glucose. Blood 12/14/2024 9:12 AM VP RHEUMATOLOGY 12/14/2024 9:28 AM VP RHEUMATOLOGY Hillary Cordova NP LAB BLOOD ORDERABLES Final Result Performing Organization Address [facility] Co de Phone Number RIGOBERTO IRIZARRY ([place]) 1 [place] [address] * Vitamin B12 (12/14/2024 9:12 AM VP RHEUMATOLOGY) [facility] Vitamin B12 874 230 - 1,250 pg/mL Blood 12/14/2024 9:12 AM VP RHEUMATOLOGY 12/14/2024 9:28 AM VP RHEUMATOLOGY us Hillary Cordova NP LAB BLOOD ORDERABLES Final Result RIGOBERTO IRIZARRY ([place]) 1 [facility] [place] [address] * (ABNORMAL) Lipid panel (12/14/2024 9:12 AM VP RHEUMATOLOGY) Cholesterol 259(H) 30 - 199 mg/dL Comment: [...] MARLENE IRIZARRY ([place]) Blood 12/14/2024 9:12 AM VP RHEUMATOLOGY 12/14/2024 9:28 AM VP RHEUMATOLOGY Hillary Cordova NP LAB BLOOD ORDERABLES Final Result [facility] ([place]) 1 [facility] [place] [address] * Comprehensive metabolic panel (12/14/2024 9:12 AM VP RHEUMATOLOGY) Sodium 141 135 - 145 mmol/L Potassium, [...] [facility] ([place]) Blood 12/14/2024 9:12 AM VP RHEUMATOLOGY 12/14/2024 9:28 AM VP RHEUMATOLOGY Hillary Cordova NP LAB BLOOD ORDERABLES Final Result RIGOBERTO IRIZARRY [place]) [facility] Department of Laboratories [place], [place] [id number] * Stool DNA - Cologuard (07/30/2023 8:50 AM CDT) Stool DNA - Cologuard Negative Negative [employer] (CLIA #:[id number]) Comment: NEGATIVE TEST RESULT. A negative Cologuard [...] Randall. et al, N Engl J Med 2014;370(14):6350-6674) The normal value (reference range) for this assay is negative. COLOGUARD RE-SCREENING RECOMMENDATION: Periodic colorectal cancer screening is an important part of preventive healthcare for asymptomatic individuals at average risk for colorectal cancer. Following a negative Cologuard result, the [place] Cancer Society and U.S. Multi-Society Task Force screening guidelines recommend a Cologuard re-screening interval of 3 years. References: [place] [employer] Guideline for Colorectal Cancer Screening: https://www.cancer.org/cancer/idlbo-mkotgx-scirhj/jwetkcmhv-lleuzdmuj-hsydgyr/ac s-rec ommendations.html.; Christiano DK, Kade CR, Kami GutierrezK, Colorectal Cancer Screening: Recommendations for Physicians and Patients from the U.S. Multi-Society Task Force on Colorectal Cancer Screening , Am J Gastroenterology 2017; 112:5127-5927. TEST DESCRIPTION: Composite algorithmic analysis of stool [...] Jurado et al, N Engl J Med 2014;370(14):2054-9989.) Cologuard may produce a false negative or false positive result (no colorectal cancer or precancerous polyp present at colonoscopy follow up). A negative Cologuard test result does not guarantee the absence of CRC or advanced adenoma (pre-cancer). The current Cologuard screening interval is every 3 years. ([place] Cancer Society and U.S. Multi-Society Task Force). Cologuard performance data in a 10,000 patient pivotal study using colonoscopy as the reference method can be accessed at the following location: www.Sooqini/results. Additional description of the Cologuard test process, warnings and precautions can be found at www.[email or web address].com. Stool 07/30/2023 8:50 AM CDT 08/01/2023 4:12 AM CDT us Jania Johnson MD LAB BODY FLUIDS AND STOOLS O RDERABLES Final Result [employer] (CLIA #:[id number]) [place] [address] * Screening Mammogram Bilateral W Herbert (01/12/2018 [...] Most Recently Relevant to Health Maintenance Insurance [facility] CHOICE PLUS [facility] HMO/PPO Address: [address] [address] [place] [address] [facility] CHOICE PLUS [facility] C[facility] HMO/PPO Address: [address] [place] [address] WORKERS COMPENSATION GENERIC Care Teams Physical Therapy Instructor Relationship Specialty Start Date End Date Jania Johnson MD PCP - General Family Practice 05/11/22 Tanya Colin, PT Physical Therapist Physical Therapy 05/09/18 Katty Dowell PT Physical Therapist Physical Therapy 05/15/18
--- OUTSIDE RECORDS SUMMARY | 2025-02-27 00:37 | XMS_ITS | Clinical Summary ---
Author Organization [facility] [address] Address [address] [place] [address] Care Team Providers Care Field Crop I Farmworker Name Role Phone Tanya Colin PT Unavailable [...] 12/21/2017 Assessment & Plan (12/21/2017 8:48 AM ELECTRIC VEHICLE ELECTRICIAN): Obesity is improving with lifestyle modifications. Discussed [...] Department Care Team Description 12/14/2024 8:55 AM ELECTRIC VEHICLE ELECTRICIAN Lab [address] [address] from Last 3 Months Immunizations Immunization Administration [...] on file Legal Sex Female 4:22 PM ELECTRIC VEHICLE ELECTRICIAN Gender Identity Not on file Sexual Orientation [...] Diagnosis Comments EGFR Routine 12/14/2024 9:12 AM ELECTRIC VEHICLE ELECTRICIAN DIFFERENTIAL AUTO Routine 12/14/2024 9:1 2 AM ELECTRIC VEHICLE ELECTRICIAN VITAMIN D 25 HYDROXY Routine 12/14/2024 9:12 AM ELECTRIC VEHICLE ELECTRICIAN VITAMIN B12 Routine 12/14/2024 9:12 AM ELECTRIC VEHICLE ELECTRICIAN T4, FREE Routine 12/14/2024 9:12 AM ELECTRIC VEHICLE ELECTRICIAN THYROID FUNCTION CASCADE Routine 12/14/2024 9:12 AM ELECTRIC VEHICLE ELECTRICIAN HEMOGLOBIN A1C Routine 12/14/2024 9:12 AM ELECTRIC VEHICLE ELECTRICIAN LIPID PANEL Routine 12/14/2024 9:12 AM ELECTRIC VEHICLE ELECTRICIAN COMPREHENSIVE METABOLIC PANEL Routine 12/14/2024 9:12 AM ELECTRIC VEHICLE ELECTRICIAN CBC WITH AUTO DIFFERENTIAL Routine 12/14/2024 9:12 AM ELECTRIC VEHICLE ELECTRICIAN STOOL DNA COLOGUARD Routine 07/30/2023 8:50 AM CDT Colon cancer screening SCREENING MAMMOGRAM BILATERAL W HERBERT Schedule Routine, Read Routine (OP Routine) 01/12/2018 1:35 PM CDT Screening breast examination HM COLONOSCOPY Routine 01/12/2018 HM PAP SMEAR WITH HPV Routine 06/19/2017 from Last 3 Months or Most Recently Relevant to Health Maintenance Results * eGFR (12/14/2024 9:12 AM ELECTRIC VEHICLE ELECTRICIAN) eGFR 78 >=60 mL/min/1. 73 m2 Comment: [...] last reviewed 2021. Blood 12/14/2024 9:12 AM ELECTRIC VEHICLE ELECTRICIAN 12/14/2024 9:28 AM ELECTRIC VEHICLE ELECTRICIAN Hillary Cordova NP LAB BLOOD ORDERABLES Final Result [facility] ([place]) 1 [facility] [place] [address] * Differential, auto (12/14/2024 9:12 AM ELECTRIC VEHICLE ELECTRICIAN) Neutrophil abs 4.0 1.5 - 6.5 K/cumm [...] revised on 2018. Blood 12/14/2024 9:12 AM ELECTRIC VEHICLE ELECTRICIAN 12/14/2024 9:28 AM ELECTRIC VEHICLE ELECTRICIAN us Hillary Cordova NP LAB BLOOD ORDERABLES Final Result [facility] ([place]) 1 [facility] [place] [address] * Thyroid Function [place] (12/14/2024 9:12 AM ELECTRIC VEHICLE ELECTRICIAN) TSH 3.63 0.30 - 4.20 mcIUnit/mL Blood 12/14/2024 9:12 AM ELECTRIC VEHICLE ELECTRICIAN 12/14/2024 9:28 AM ELECTRIC VEHICLE ELECTRICIAN us Hillary Cordova NP LAB BLOOD ORDERABLES Final Result [facility] ([place]) 1 [facility] [place] [address] * CBC with auto differential (12/14/2024 9:12 AM ELECTRIC VEHICLE ELECTRICIAN) WBC 6.8 3.8 - 9.9 K/cumm Hgb [...] [facility] ([place]) Blood 12/14/2024 9:12 AM ELECTRIC VEHICLE ELECTRICIAN 12/14/2024 9:28 AM ELECTRIC VEHICLE ELECTRICIAN us Hillary Cordova NP LAB BLOOD ORDERABLES Final Result [facility] ([place]) 1 [facility] [place] [address] * Vitamin D 25 hydroxy (12/14/2024 9:12 AM ELECTRIC VEHICLE ELECTRICIAN) Vitamin D 25-OH 71 30 - 80 ng/mL Blood 12/14/2024 9:12 AM ELECTRIC VEHICLE ELECTRICIAN 12/14/2024 9:28 AM ELECTRIC VEHICLE ELECTRICIAN Hillary Cordova NP LAB BLOOD ORDERABLES Final Result [place] [place] 1 [facility] [place] [address] * T4, free (12/14/2024 9:12 AM ELECTRIC VEHICLE ELECTRICIAN) [facility] Free T4 1.06 0.90 - 1.70 ng/dL Blood 12/14/2024 9:12 AM ELECTRIC VEHICLE ELECTRICIAN 12/14/2024 9:28 AM ELECTRIC VEHICLE ELECTRICIAN Hillary Cordova NP LAB BLOOD ORDERABLES Final Result Performing Organization Address [facility] de Phone Number [facility] IRIZARR[facility] ([place]) [address] [place] [address] * Hemoglobin A1c (12/14/2024 9:12 AM ELECTRIC VEHICLE ELECTRICIAN) [facility] Hgb A1C 5.4 4.0 - 5.6 % Estimated Average Glucose 108 mg/dL NELYKATHERINE IRIZARR[facility] ([place]) Comment: The ADA recommends reporting an estimated Average Glucose (eAG) with all Hemoglobin A1c results using the equation derived from a study of 507 normal and diabetic adults. Minority populations were underrepresented and children were not included. (Diabetes Care 31:8582-6120, 2008). The eAG is not equivalent to a fasting glucose. Blood 12/14/2024 9:12 AM ELECTRIC VEHICLE ELECTRICIAN 12/14/2024 9:28 AM ELECTRIC VEHICLE ELECTRICIAN Hillary Cordova NP LAB BLOOD ORDERABLES Final Result [facility] ([place]) [address] [place] [address] * Vitamin B12 (12/14/2024 9:12 AM ELECTRIC VEHICLE ELECTRICIAN) [facility] Vitamin B12 874 230 - 1,250 pg/mL Blood 12/14/2024 9:12 AM ELECTRIC VEHICLE ELECTRICIAN 12/14/2024 9:28 AM ELECTRIC VEHICLE ELECTRICIAN us Hillary Cordova NP LAB BLOOD ORDERABLES Final Result [facility] ED[facility] ([place]) 1 [facility] Department [place] [address] * (ABNORMAL) Lipid panel (12/14/2024 9:12 AM ELECTRIC VEHICLE ELECTRICIAN) Cholesterol 259(H) 30 - 199 mg/dL Comment: [...] MARLENE IRIZARRY ([place]) Blood 12/14/2024 9:12 AM ELECTRIC VEHICLE ELECTRICIAN 12/14/2024 9:28 AM ELECTRIC VEHICLE ELECTRICIAN Hillary Cordova NP LAB BLOOD ORDERABLES Final Result [facility] ([place]) 1 [facility] Department [place] [address] * Comprehensive metabolic panel (12/14/2024 9:12 AM ELECTRIC VEHICLE ELECTRICIAN) Sodium 141 135 - 145 mmol/L Potassium, [...] [facility] ([place]) Blood 12/14/2024 9:12 AM ELECTRIC VEHICLE ELECTRICIAN 12/14/2024 9:28 AM ELECTRIC VEHICLE ELECTRICIAN us Hillary J. Art BORING MACHINE OPERATOR VERTICAL LAB BLOOD ORDERABLES Final Result [facility]ERT[facility] IRIZARR[facility] [place]) 1 [facility] [place] [address] * Stool DNA - Cologuard (07/30/2023 8:50 AM CDT) Stool DNA - Cologuard Negative Negative [place] (CLIA #:[id number]) Comment: NEGATIVE TEST RESULT. A negative Cologuard [...] (Jayla Bennett al, N Engl J Med 2014;370(14):6547-5105) The normal value (reference range) for this assay is negative. COLOGUARD RE-SCREENING RECOMMENDATION: Periodic colorectal cancer screening is an important part of preventive healthcare for asymptomatic individuals at average risk for colorectal cancer. Following a negative Cologuard result, the [place] [employer] Society and U.S. Multi-Society Task Force screening guidelines recommend a Cologuard re-screening interval of 3 years. References: [place] [employer] Guideline for Colorectal Cancer Screening: https://www.cancer.org/cancer/abotw-wfxtyw-rjwpep/hvmechtcs-reajivmpi-itnoxfu/ac s-rec ommendations.html.; Christiano DK, Kade CR, Kami GutierrezK, Colorectal Cancer Screening: Recommendations for Physicians and Patients from the U.S. Multi-Society Task Force on Colorectal Cancer Screening , Am J Gastroenterology 2017; 112:0735-0313. TEST DESCRIPTION: Composite algorithmic analysis of stool [...] (Jayla Bennett al, N Engl J Med 2014;370(14):6606-1298.) Cologuard may produce a false negative or false positive result (no colorectal cancer or precancerous polyp present at colonoscopy follow up). A negative Cologuard test result does not guarantee the absence of CRC or advanced adenoma (pre-cancer). The current Cologuard screening interval is every 3 years. ([place] [employer] Society and U.S. Multi-Society Task Force). Cologuard performance data in a 10,000 patient pivotal study using colonoscopy as the reference method can be accessed at the following location: www.[employer].Care Thread/results. Additional description of the Cologuard test process, warnings and precautions can be found at www.cologuard.com. Stool 07/30/2023 8:50 AM CDT 08/01/2023 4:12 AM CDT us Jania Johnson MD LAB BODY FLUIDS AND STOOLS O RDERABLES Final Result [facility] [employer] (CLIA #:[id number]) [place] [place] [address] * Screening Mammogram Bilateral W Herbert (01/12/2018 [...] Most Recently Relevant to Health Maintenance Insurance [facility] CHOICE PLUS [facility] CHOICE PLUS WORKERS COMPENSATION GENERIC Care Teams Field Crop I Farmworker Relationship Specialty Start Date End Date Jania Johnson MD PCP - General Family Practice 05/11/22 Tanya Colin, PT Physical Therapist Physical Therapy 05/09/18 Katty Dowell PT Physical Therapist Physical Therapy 05/15/18
--- OUTSIDE RECORDS SUMMARY | 2025-02-27 00:38 | XMS_ITS | Clinical Summary ---
Author Organization [facility] Address [address] [place] [address] Phone Care Team Providers Care Furniture Sales Consultant Name Role Phone Ruiz Krishna MD Primary Care Provider [phone] Family History Medical History Relation Name Comments [...] adult medical examination w/o abnormal findings [facility] SCREENING BILATERAL DIGITAL W CAD Routine 03/09/2016 12:04 PM CDT Visit for screening mammogram from Last 3 Months or Most Recently Relevant to Health Maintenance Results * HEPATITIS C ANTIBODY (02/10/2017 11:11 AM CDT) hepatitis C antibody 0.07 <1 S/CO 02/10/2017 11:19 PM CDT [facility] Comment: Signal/Cutoff ratio < 0.79 is Nondetected Signal/Cutoff ratio 0.80-0.99 is Grayzone Signal/Cutoff ratio > 0.99 is Detected Supplemental assays are recommended if signal/cutoff ratio is >/=1.00. Signal/cutoff ratio result >/= 5.00 is 97% predictive of positivity for recombinant immunoblot assay (RIBA) and will be reported to the [place] Department of Public Health as required. Blood specimen (specimen) Venipuncture / Unknown 02/10/2017 11:11 AM CDT 02/10/2017 2:18 PM CDT us Ruiz Krishna MD CHEMISTRY ORDERABLES Final Resul t [facility] [address] [place] [address], * [place] SCREENING BILATERAL DIGITAL W CAD [...] is made to exams dated: 12/16/2014, 09/21/2013 [facility], and 02/22/2011 [facility]. BREAST TISSUE:There are scattered fibroglandular densities in [...] exam. Electronically signed by: Sammy lancaster/mervat:03/09/2016 13:34:43 Shearer Operator: Margaret YUNG(Nicole)(Mao), [facility] letter sent: Normal Exam Reading location: [facility] BI-RADS: 1 Negative Procedure Note Sammy Carballo [...] is made to exams dated: 12/16/2014, 09/21/2013 [facility], and 02/22/2011 [facility]. BREAST TISSUE:There are scattered fibroglandular densities in [...] exam. Electronically signed by: Sammy lancaster/mervat:03/09/2016 13:34:43 Shearer Operator: Margaret YUNG(Nicole)(Mao), [facility] letter sent: Normal Exam Reading location: [facility] BI-RADS: 1 Negative us Sammy Carballo MD IMG MAMMO ORDERABLES Fin al Result from Last 3 Months or Most Recently Relevant to Health Maintenance Care Teams Furniture Sales Consultant Relationship Specialty Start Date End Date Ruiz Krishna MD [address] [place] [address] PCP - General Internal Medicine 02/10/16
--- OUTSIDE RECORDS SUMMARY | 2025-02-27 00:38 | XMS_ITS | Encounter Summary ---
Author Organization [facility] Address 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) Social History Tobacco Use Types Packs/Day Years Used Date Smoking Tobacco: Never Assessed Comments Unknown Sex and Gender Information Value Date Recorded Sex Assigned at Not on file Legal Sex Female 5:41 AM STORY WRITER Gender Identity Not on file Sexual Orientation Not on file documented as of this encounter Plan of Treatment Upcoming Encounters Date Type Department Care Team (Late st Contact Info) Description 02/28/2025 4:30 PM CDT Telephone Check Up [facility] Oncology and Hematology - Colin [address] [place] [address] Rg Potter MD [address] [place] [address] 03/21/2025 10:00 AM CDT Office Visit [facility] Oncology and Hematology - Colin [address] [place] [address] Rg Potter MD [address] [facility] [address] [place] [phone] documented as of this encounter Visit Diagnoses Diagnosis Malignant neoplasm of upper-inner quadrant of female breast (CMS/HCC) Malignant neoplasm of upper-inner quadrant of female breast documented in this encounter Care Teams Field Cane Scaler Relationship Specialty Start Date End Date Ruiz Krishna MD [address] [place] [address] PCP - General 12/11/08 documented as of this encounter
--- OUTSIDE RECORDS SUMMARY | 2025-02-27 00:38 | XMS_ITS | Encounter Summary ---
Author Organization [facility] Address 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 MERCHANDISE PLANNER Gender Identity Not on file Sexual Orientation Not on file documented as of this encounter Plan of Treatment Upcoming Encounters Date Type Department Care Team (Late st Contact Info) Description 02/28/2025 4:30 PM CDT Telephone Check Up [facility] Oncology and Hematology - Colin [address] [place] [address] Rg Potter MD [address] [place] [address] 03/21/2025 10:00 AM CDT Office Visit [facility] Oncology and Hematology - Colin [address] [place] [address] Rg Potter MD [address] [facility] [address] [place] [phone] documented as of this encounter Visit Diagnoses Diagnosis Malignant neoplasm of upper-inner quadrant of female breast (CMS/HCC) Malignant neoplasm of upper-inner quadrant of female breast documented in this encounter Care Teams Planogrammer Relationship Specialty Start Date End Date Ruiz Krishna MD [address] [facility] [place] [address] PCP - General 12/11/08 documented as of this encounter
--- OUTSIDE RECORDS SUMMARY | 2025-02-27 00:38 | XMS_ITS | Clinical Summary ---
Author Organization [employer] [address] Address [address] [place] [address] Care Team Providers Care Medical Records Manager Name Role Phone Ruiz Krishna MD Primary Care Provider [phone] Allergies Active Allergy Reactions Criticality Noted Date [...] Type Department Care Team Description 02/14/2025 Abstract [facility] Oncology and Hematology [facility] [address] [place] [address] Rg Potter MD 02/12/2025 External Device Data ST[facility] ABSTRACTION Provider, Abstract 02/12/2025 External Device Data [place] ABSTRACTION Provider, Abstract 02/12/2025 External Device Data [place] ABSTRACTION Provider, Abstract 02/07/2025 3:00 PM CDT Office Visit [facility] Oncology and Hematology [facility] [address] [place] [address] Rg Potter MD Malignant neoplasm of upper-outer [...] on file Legal Sex Female 5:41 AM SLOT MACHINE DEPARTMENT FLOORPERSON Gender Identity Not on file Sexual Orientation [...] 02/28/2025 4:30 PM CDT Telephone Check Up [facility] Oncology and Hematology [address] [place] [address] Rg Potter MD [address] [employer] [address] [place] [phone] 03/21/2025 10:00 AM CDT Office Visit [facility] Oncology and Hematology - Colin [address] [place] [phone] Rg Potter MD [address] [employer] [address] [place] [phone] Health Maintenance Due Date Last Done Comments [...] Most Recently Relevant to Health Maintenance Insurance [employer] [id number] Care Teams Medical Records Manager Relationship Specialty Start Date End Date Ruiz Krishna MD [address] [place] [address] PCP - General 12/11/08
[2025-02-27] MEDS: LIDOCAINE/PRILOCAINE CREAM 2.5-2.5% TUBE 1 EACH TOPICAL (06:30)
--- NOTE | 2025-02-27 06:56 | P.PNAN_ITS ---
Anes - Initial Pre Proc Eval Procedure: Operation Date: 02/27/25 07:30 Proposed Procedures p Left Total Mastectomy, Prophylactic Right Total Mastectomy, Left [place] Lymph Node Biopsy, Injection Lymphoseek and Methylene Blue for Node Mapping - Lilibeth Al MD s Bilateral Silicone Breast Implant Placement, Acellular Dermal Matrix, Possible Bilateral Tissue Leather Production Machine Operator Placement - Jayne Yeung MD Date/Time: 02/27/25 06:56 Surgeon: Lilibeth Al MD Pre Op Diagnosis: malig neoplasm left breast, hx rt breast CA Patient Data Age: 59 Gender: F Height: 1.57 m Weight: 83.6 kg Allergies Allergy/AdvReac Type Severity Reaction Status Date / Time nickel Allergy Mild Rash Verified 02/27/25 06:35 Home Medications ?Medication ?Instructions ?Recorded ?Confirmed ?Type Calcium 600 2 tab-cap PO DAILY 01/13/24 02/27/25 History Vitamin D2 1 cap PO WEEKLY 01/13/24 02/27/25 History magnesium glycinate 1 tab-cap PO DAILY 01/13/24 02/27/25 History multivitamin 1 tablet PO DAILY 01/13/24 02/27/25 History Patient hx anesthesia problems: post op nausea/vomiting (Pt reports that she has had adverse side effects from scop patch in the past. ) Family hx anesthesia problems: none Results Review: All pre-operative results and documents have been reviewed as part of the pre- operative evaluation. [facility] Past Medical History Medical History History of right breast cancer Surgical History Surgical History History of breast reconstruction History of removal of cyst History of tonsillectomy History of lumpectomy Family History Family History Mother Family history of osteoporosis Family history of malignant neoplasm of breast in first degree relative Father Hypertension Social History Social History Smoking status: Never smoker Second hand tobacco smoke exposure: Yes ( smokes) Alcohol intake: current Substance use: never Substance use type: does not use Do You Feel Safe in your Home?: Yes Lack of Transportation: No Lack of Food: Never True Current Housing: Decline to Answer Concerned About Future Housing: Decline to Answer Difficulty Paying Gas/Electric Bills: Decline to Answer Difficulty Paying for Meds: Decline to Answer Currently Unemployed: Decline to Answer Education: Decline to Answer Difficulty w/ Childcare or Family Care: Decline to Answer Living arrangements: with family Anes - Eval Final PreProcedure Day of Procedure 02/27/25 06:56 Patient weight: obese Airway: Mallampati scale class 1 and special considerations Neurological: alert and oriented Last oral intake: >/= 8 hours ASA classification: II Emergent: no Anesthetic plan: proceed Anesthesia type and monitoring: general ETT and standard monitoring Results Review: All pre-operative results and documents have been reviewed as part of the pre- operative evaluation. BMI 33, breast ca. Pt reports overall good functional status w 1-2 fos, no cp, mild dyspnea w 2 fos, no cp. Informed Consent: The patient's anesthetic plan and its attendant risks and benefits were discussed with the patient/family/POA. Questions were solicited and answers provided to the satisfaction of the patient/family/POA.
--- NOTE | 2025-02-27 06:58 | WPDHPUPDATE1 ---
History and Physical Update Update Date/Time: 02/27/25 06:58 Patient seen and examined in pre-operative holding area. No interval change in medical history or symptoms. Patient remembers previous discussion of benefits and alternatives to procedure. Continues to desire to proceed with bilateral breast reconstruction with silicone implants and acellular dermal matrix possible tissue expanders at time of [id number]-[id number] mastectomy and excision left chest skin lesion. I reviewed the risks including but not limited to bleeding ,infection, asymmetry, undesireable cosmetic appearance, partial/total skin loss, device failure, capsular contracture, no change or worsening of symptoms, change in sensation. I discussed the possible use of assistants and their level of participation in the case. Patient stated understanding and signed the consent form wishing to proceed
--- NOTE | 2025-02-27 06:59 | W.PM.PROC2 ---
Procedure Note - Detailed Date of Procedure 02/27/25 Pre-op Diagnosis malig neoplasm left breast, hx rt breast CA and excisional biopsy left chest skin lesion Post-op Diagnosis Same (acquired absence bilateral breast and nipple) Procedure Performed bilateral breast reconstruction with silicone implant placement and adm and adjacent tissue transfer on left breast and excision left lateral trunk skin lesion Surgeon Jayne Yeung MD Shafting Cleaner pawan rossi pa-c Anesthesia General Description of Procedure Patient was seen in the preoperative holding area where the breasts were and the consent form was signed. Patient was taken back to the operating room and placed on table in the supine position. Time-out was performed with Anesthesia, surgeons, and staff agreeing on patient's name, site, and surgery to be performed. SCDs were placed on the lower extremities and inflated. Antibiotics were given IV. After general anesthesia was administered the breasts were prepped and draped in the usual sterile fashion. Care was then given to Dr. Al who proceeded to perform the left sentinel lymph node biopsy dictated separately. After this was completed we took our attention to the left breast. I designed a transverse incision on the left breast to encompass the nipple for resection. Dr. Al will dictate this mastectomy separately. Assisting with the mastectomy as indicated I then irrigated with antibiotic solution and obtained hemostasis with Bovie cautery. There appeared to be a connectiion between the left breast pocket and lymph node dissection site and I repaired this connection with 3-0 vicryl suture. After completion of mastectomy and hemostasis I proceeded with sewing in a piece of large, contoured, perforated AlloDerm along the inframammary fold and anterior axillary line with 2-0 Vicryl suture. A 450 cc full profile Sizer was initially placed. Next, gloves and instruments were changed and we proceeded with the right mastectomy that will be dictated separately by Dr. Al. I again designed a transverse incision to encompass the nipple-areolar complex resection. Once the mastectomy was completed I further irrigated with antibiotic irrigation and hemostasis with Bovie cautery. I sewed in a another piece of large, contoured, perforated AlloDerm along the inframammary fold and anterior axillary line with 2-0 Vicryl suture. A separate 450 cc full profile Sizer was then inserted. There was general asymmetry in the breasts prior to surgery due to previous surgical history and right breast radiation. With this 450 cc implant the right breast skin flaps were able to be approximated with moderate tension. The decision was made to proceed with placing a slightly smaller 415 cc implant and prevent excess tension on the right breast skin flaps. The Sizer was removed. A 10 Libyan SURJIT drain was placed along the inframammary fold. An on Q pump catheter was placed along the superior aspect of the right breast cavity. I irrigated with antibiotic irrigation. Hemostasis was obtained with Bovie cautery. I prepped the skin with Betadine and placed down fresh towels. Instruments were washed with antibiotic irrigation. I changed my gloves then proceeded with taking a [place] [facility] [id number] directly from the package after rinsing it in antibiotic irrigation and placed it in its appropriate orientation in the right breast pocket underneath the AlloDerm. Subq and dermis was then immediately closed with 3-0 Vicryl suture. 4-0 Monocryl was used for subcuticular closure. The drain was hooked to bulb suction. I now returned to the left breast and removed the Sizer. I placed a 10 SURJIT drain along the inframammary fold and an on Q catheter along the superior aspect of the left breast pocket. I irrigated antibiotic irrigation and hemostasis was still noted to be good. I prepped the skin with Betadine and placed down fresh towels. Gloves were changed and instruments rinsed in antibiotic irrigation. I proceeded with taking another Natrelle SCF-415 implant serial [id number] directly from the package after rinsing it in antibiotic irrigation and placed in the left breast pocket underneath the AlloDerm and immediately closed subcutaneous tissue with 3-0 Vicryl sutures. Here it was evaluated that there was still a notable excess of skin and subcutaneous tissue as well as elasticity of the left breast skin compared to the reconstructed right breast given the previous history of right breast radiation. I measured the distance of the right breast incision from the inframammary fold and transposed this to the left breast. I proceeded with de epithelializing the area of excess skin on the inferior flap to advance superiorly underneath the superior flap. The dimensions of this flap measured 13 by 3 cm. Advancing this inferior flap superiorly and then pulling the superior flap inferiorly I was able to patrick the necessary margins for further resection on the superior skin flap. I proceeded with resecting the superior skin flap with 10 blade through skin and dermis and then Bovie cautery to further resect subcutaneous tissue is appropriate and adjust the flap as needed. I proceeded with closure using 3-0 Vicryl to secure my inferior de-epithelialized flap to the superior flap subcutaneous tissue and dermis. 4-0 Monocryl was used for subcuticular closure. Dog ears medially and laterally were also further tailored with scalpel and Bovie excision and 3-0 Vicryl and 4-0 Monocryl closure. There was reasonable size, shape, and symmetry to the reconstructed breasts. The skin flaps appeared viable with good cap refill. Drains were hooked to bulb suction. I injected 5 cc of 1% lidocaine with epinephrine and 0.5% Marcaine plain through the on Q pump on each breast for initial loading bolus dose. Next I proceeded with using 15 blade scalpel to excise the melanotic the protuberant lesion on the left lateral chest lateral to our incisions. This was closed with 4-0 Monocryl for simple closure. The size of the lesion measured 6 mm. A dressing of Mastisol, Steri-Strips, 4 x 4, Tegaderm, ABDs and a breast binder was then applied. The patient was awakened from anesthesia and transferred to the recovery room in stable condition. Complications: None Estimated blood loss: 10 cc for my portion of the procedure. Disposition: Patient tolerated the procedure well and will be staying for observation. Pawan Rossi PA-C was essential for positioinng, retraction, closure and dressing placement. Dr. Al also assisted with retraction and closure during the reconstructive portion. [facility] [place] Surgery - Charge Forward: Surgery Billing ([id number], [id number],59 [id number], LT [id number]-IP,59 [id number]-QX,80 [id number]-LI,80 same for pawan adding modifier and removing 80)
--- NOTE | 2025-02-27 07:03 | WPDHPUPDATE1 ---
History and Physical Update Update Date/Time: 02/27/25 07:03 - left total mastectomy, right prophylactic mastectomy, left sentinel lymph node biopsy, injection of Lymphoseek and methylene blue for sentinel lymph node mapping, and immediate reconstruction by Plastic surgery History and Physical has been reviewed, including an updated exam of the patient. There are NO changes in the patient's condition. Risks, benefits, and alternatives have been discussed and questions answered. Patient agrees to proceed with procedure.
[2025-02-27] MEDS: LACTATED RINGERS 1,000 ML 30 ML IV CONT ×2 (07:14→11:42)
[2025-02-27] MEDS: ACETAMINOPHEN 500 MG TABLET 1000 MG PO (07:15)
[2025-02-27] MEDS: ceFAZolin 2 GM/D5W 50 ML 2 GM/50 ML BAG IVPB (07:45)
[2025-02-27] MEDS: NACL 0.9% IRRIG POUR BOTTLE 1,000 ML, GENTAMICIN SULFATE INJ 160 MG, ceFAZolin 2 GM IRRIGATION (08:04)
[2025-02-27] MEDS: LIDO 1%/EPINEPHRINE 1:100,000 20 ML VIAL 50 ML INFILTRATE (08:05)
[2025-02-27] MEDS: BUPivacaine HCL 0.25% PF 30 ML VIAL INFILTRATE (08:06)
[2025-02-27] MEDS: BUPivacaine HCL 0.5% 10 ML AMP 30 ML INFILTRATE (08:06)
[2025-02-27] MEDS: BUPivacaine 0.5% ON-Q PUMP 335 ML INTRADERM (11:27)
--- NOTE | 2025-02-27 11:29 | W.PM.PROC2 ---
Procedure Note - Detailed Date of Procedure 02/27/25 Pre-op Diagnosis Left breast invasive lobular carcinoma, history of right breast DCIS Post-op Diagnosis Same Procedure Performed 1. Left total mastectomy 2. Right prophylactic mastectomy 3. Left sentinel lymph node biopsy 4. Lymphoseek injection for sentinel lymph node mapping 5. Methylene blue injection for dual tracing Surgeon Lilibeth Al MD Market Developer Merari Landon PA-C Anesthesia General Description of Procedure Patient was identified in the preoperative holding area and brought to nuclear Medicine for Lymphoseek injection which I performed myself. Patient was then brought to the operating room suite and placed supine in the OR table. Sequential compression devices were applied and general endotracheal anesthesia was induced without difficulty. Bilateral chest and left axillary areas were prepped and draped in a sterile fashion. Attention was then turned to the left axilla. The Neoprobe was used to scan the left axilla to find the area of highest radio activity and a small incision was made overlying this area. Dissection was carried down through the subcutaneous tissue and the clavipectoral fascia was opened. I was able to identify 1 node that was hot and this was carefully grasped and excised using the LigaSure device. The count for this sentinel lymph node 1 was 2416, and this was sent to pathology as fresh specimens. The Neoprobe was again used to scan the axilla was used for any areas of radio activity there were at least 10% of the highest count and no other areas were identified. The axillary wound was irrigated with saline hemostasis was assured. The clavipectoral fascia was approximated with a running 3-0 Vicryl. The deep dermal layer was then closed with interrupted 3-0 Vicryl followed by 4-0 Monocryl in a subcuticular fashion and Dermabond for the skin. Attention was then turned to the left breast. Dr. Yeung had already previously marked incisions which included a fish mouth incision encompassing the nipple areola complex, and dissection was then carried out in the thin areolar tissue between the subcutaneous and the breast tissue, superiorly to the? inferior border of the clavicle, medial to the lateral aspect of the sternal border, laterally to the latissimus dorsi, and inferior to the inframammary fold down to the muscle. The? breast tissue along with the pectoralis fascia was then carefully dissected off the pectoralis muscle posteriorly.? Once the entire breast was excised, it was oriented with a short stitch superior and a long stitch lateral and sent to pathology as a fresh specimen. The cavity was irrigated and hemostasis was assured. Attention was then turned to the right breast. A similar fish mouth incision was made encompassing the nipple areola complex and dissection was carried down through the subcutaneous tissue into the breast tissue. Dissection was then performed in the thin areolar tissue between the subcutaneous and the breast tissue, superiorly to the? inferior border of the clavicle, medial to the lateral aspect of the sternal border, laterally to the latissimus dorsi, and inferior to the inframammary fold down to the muscle. The? breast tissue along with the pectoralis fascia was then carefully dissected off the pectoralis muscle posteriorly.? Once the entire breast was excised, it was oriented with a short stitch superior and a long stitch lateral and sent to pathology as a fresh specimen. The cavity was irrigated and hemostasis was assured. the case was then turned over to Dr. Yeung for bilateral acellular dermal matrix and silicone prepectoral implant placement, which I also assisted with; please refer to his procedure note for further details. All needles, instruments, and sponge counts were correct as reported by the operating room staff. Patient tolerated the procedure well with no immediate complications. Merari Landon PA-C was presented and assisted with patient positioning and retraction throughout the case. Estimated Blood Loss 30 Drains Yes Pathology Yes Complications No immediate complications Condition Stable Disposition PACU [facility] Billing Surgery - Charge Forward: Surgery Billing (CPT 28337 - Lt / 79154 - 59 Rt / 89965 - 59 / 85420 - 59 / 20216 - 59 / 75653 - RT, 80 / 31972 - LT, 80 )
[2025-02-27] MEDS: METHYLENE BLUE 0.5% INJ 10 ML AMPULE 20 ML IRRIGATION (12:24)
[2025-02-27] MEDS: ONDANSETRON INJ 4 MG/2 ML VIAL IV PUSH (13:03)
--- NOTE | 2025-02-27 13:10 | ADMGEN ---
This patient, Ariana Colvin, was admitted to OB 2nd Floor Room 289-00. Patient/family oriented to hospital policies and general routines including ID bracelet, bed and alarms, visiting hours, pain management, procedures, bathroom and other care routines, personal items, smoking policy, room service/diet, and visiting hours. Information on how to activate the Rapid Response Team has been discussed. Patient/Family are encouraged to report perceived risks to care and to ask questions if they do not understand what they are told or what they should do.
[2025-02-27] MEDS: LACTATED RINGERS 1,000 ML 100 ML IV CONT (13:42)
[2025-02-27] MEDS: ACETAMINOPHEN 325 MG TABLET 650 MG PO (14:11)
[2025-02-27] MEDS: MULTIVITAMINS THERAPEUTIC TAB (*BKC) 1 TABLET PO (14:11)
[2025-02-27] MEDS: CALCIUM CARBONATE (OSCAL) 500 MG TABLET 1000 MG PO (14:11)
[2025-02-27] MEDS: DOCUSATE SODIUM 100 MG CAPSULE PO (16:00)
[2025-02-27] MEDS: HYDROcodone/acetaminophen (*CRX) 5-325 MG TABLET 1 TAB PO ×3 (16:00→23:53)
[2025-02-27] MEDS: CEPHALEXIN 500 MG CAPSULE PO ×2 (16:00→21:59)
[2025-02-28 04:00] VITALS: BP 113/69; PULSE 78; RESP 16; TEMP 36.8; O2SAT 96
[2025-02-28] MEDS: HYDROcodone/acetaminophen (*CRX) 5-325 MG TABLET 1 TAB PO ×2 (04:05→09:07)
[2025-02-28] MEDS: CEPHALEXIN 500 MG CAPSULE PO (05:56)
[2025-02-28 07:55] VITALS: BP 121/69; PULSE 80; RESP 18; TEMP 37.2; O2SAT 98
--- NOTE | 2025-02-28 08:59 | P.SS_ITS ---
Same Day Admit/Disch: HPI History of Present Illness Chief complaint: malig neoplasm left breast, hx rt breast CA Narrative: Ariana Colvin is a 59 year old female [facility] Past Medical History Medical History History of right breast cancer Surgical History Surgical History History of breast reconstruction History of removal of cyst History of tonsillectomy History of lumpectomy Family History Family History Mother Family history of osteoporosis Family history of malignant neoplasm of breast in first degree relative Father Hypertension Social History Social History Smoking status: Never smoker Second hand tobacco smoke exposure: Yes ( smokes) Alcohol intake: current Substance use: never Substance use type: does not use Do You Feel Safe in your Home?: Yes Lack of Transportation: No Lack of Food: Never True Current Housing: Decline to Answer Concerned About Future Housing: Decline to Answer Difficulty Paying Gas/Electric Bills: Decline to Answer Difficulty Paying for Meds: Decline to Answer Currently Unemployed: Decline to Answer Education: Decline to Answer Difficulty w/ Childcare or Family Care: Decline to Answer Living arrangements: with family Same Day Admit/Disch: Med Pre-admit Medications Home Medications ?Medication ?Instructions ?Recorded ?Confirmed ?Type Calcium 600 2 tab-cap PO DAILY 01/13/24 02/27/25 History Vitamin D2 1 cap PO WEEKLY 01/13/24 02/27/25 History magnesium glycinate 1 tab-cap PO DAILY 01/13/24 02/27/25 History multivitamin 1 tablet PO DAILY 01/13/24 02/27/25 History cephalexin 500 mg capsule 500 mg PO Q8H #21 caps 02/28/25 Rx hydrocodone 5 mg-acetaminophen 325 1 tablet PO Q6H PRN pain #16 tabs 02/28/25 Rx mg tablet Review of Systems Review of Systems All systems reviewed & are unremarkable except as noted in HPI and below Exam Const: General: comfortable and no acute distress Eyes: General: appearance normal, both eyes and all related structures Resp: Effort & Inspection: normal respiratory effort Cardio: Rate: regular rate GI: GI Palp: Yes Soft to palpation Skin: General skin exam: normal color Other: bilateral mastectomy flaps are well perfused, mild ecchymosis noted on the right lateral side. There is some blood strike through on the right IMF dressing, but no dripping. Dressing still intact on both side. Drains with small amount of serous sanguineous fluid. Neuro: General: gait normal Extrem: General: normal to inspection Psych: Mental Status: mental status grossly normal DS: Data Data Completed and Pending Pending studies at discharge: Pending at discharge 02/27/25 08:37 Surgical [PTH] Routine Surgical [PTH] Routine Surgical [PTH] Routine DS: Summary Hospital Course Reason for hospitalization: 59-year-old female with left breast invasive lobular carcinoma who underwent bilateral total mastectomy and left sentinel lymph node biopsy as well as immediate reconstruction with silicone implants on February 27 and was admitted overnight for observation. Patient's pain is well controlled p.o. pain meds, she is ambulating without any assistance and tolerating diet with no nausea or emesis. Patient was deemed ready for discharge on postop day 1. Status at Discharge Functional status at discharge: independent ambulation Overall status at discharge: patient is back to baseline Time Spent with Patient Time attestation: Total time spent providing and/or coordinating discharge services: Time spent: Less than 30 minutes DS: Admitting Diagnosis Discharge Date 02/28/2025 Admitting Diagnosis Left breast invasive lobular carcinoma DS: Discharge Diagnosis Discharge Diagnosis (1) Invasive lobular carcinoma of left breast in female: Code(s): C50.912 - Malignant neoplasm of unspecified site of left female breast Status: Acute (2) History of ductal carcinoma in situ (DCIS) of right breast: Code(s): Z86.000 - Personal history of in-situ neoplasm of breast Status: Acute Assessment and Plan: 59 year old female with left breast invasive lobular carcinoma s/p BTM, L SLN bx, and prepec silicone implant recon on February 27, admitted overnight for observation. Plan - Home today - Drain teaching - Follow up with Plastic Surgery in 1 week - Follow up with Breast Surgery in 2 weeks Discharge Plan Discharge Patient Disposition: Home Discharge Instructions: Post-Operative Instructions Breast Reconstruction Dressing Instructions: Keep bra and surgical dressings clean, dry, and in place at all times. Shower Instructions: Keep surgical dressings, incisions, and drains, dry at all times. You may shower or sponge bathe from waist down. May sponge bathe underarms and upper extremities. Activity: Avoid strenuous activity and heavy lifting/pushing/pulling until seen in office for follow up appointment. Avoid overhead arm movements. Walking is encouraged to help with bowel movement as well as help prevent blood clots in the lower extremities. Deep breathing exercises are encouraged to help prevent lung infections. Drain Care: Keep drains on suction at all times. Strip drain tubing at least every 12 hours. Empty drains every 12 hours and record output separately for each side. Please bring output record to your first follow up visit in office. Medication: May take Advil or Tylenol for pain. May take prescription pain medication as prescribed if not controlled by Advil/Tylenol. Prescription pain medication may cause constipation. Take antibiotics as prescribed. Follow up: Please follow up in Plastics office in 3-5 days. Breast Surgery follow up 2 weeks. Please call the office for any questions or concerns, including uncontrolled pain, fever/chills, bleeding, redness, or unexpected changes in sensation. If a fter normal business hours, please request the tapering machine operator page the surgeon or PA. For emergent symptoms, please call 911 or seek assistance at the nearest Emergency Room. Patient Language: Uzbek Follow-up/Referrals: Lilibeth Al MD [Physician] - (in 2 weeks) Discharge Medications: New hydrocodone-acetaminophen 5-325 mg tablet 1 tablet PO Q6H PRN (Reason: pain) Qty: 16 0RF cephalexin 500 mg capsule 500 mg PO Q8H Qty: 21 0RF Continued Vitamin D2 50,000 units 1 cap PO WEEKLY Calcium 600 600 mg 2 tab-cap PO DAILY multivitamin 1 tablet 1 tablet PO DAILY magnesium glycinate 250 mg 1 tab-cap PO DAILY
[2025-02-28] MEDS: DOCUSATE SODIUM 100 MG CAPSULE PO (09:07)
[2025-02-28] MEDS: MULTIVITAMINS THERAPEUTIC TAB (*BKC) 1 TABLET PO (09:07)
[2025-02-28] MEDS: CALCIUM CARBONATE (OSCAL) 500 MG TABLET 1000 MG PO (09:07)
[2025-02-28] MEDS: ACETAMINOPHEN 325 MG TABLET 650 MG PO (11:21)
== END 2025-02-28 11:57 | disposition home or self-care (01) ==
LOC: ANHSURGERY 11:43 → ANHOB2 13:08
PROVIDERS: Plastic Surgery; Visit Provider Surgery
PROC: (CPT 19303; principal; 2025-02-27 07:30)
PROC: (CPT 19340; 2025-02-27 07:30)
DX: C50.912 Malignant neoplasm of unspecified site of left female breast (principal); D23.5 Other benign neoplasm of skin of trunk; E66.9 Obesity, unspecified; Z68.33 Body mass index [BMI] 33.0-33.9, adult; Z79.891 Long term (current) use of opiate analgesic; Z98.890 Other specified postprocedural states; Z85.3 Personal history of malignant neoplasm of breast; Z80.3 Family history of malignant neoplasm of breast
CPT/HCPCS: 19303; 38525; 19340; 15777 ×2; 14301; 11401; 38900; 38792; 88305; 88307; 88342; 99199; A9270; A9520; C1789; J0330; J0665; J0690; J1100; J1171; J1200; J1580; J2003; J2004; J2250; J2371; J2405; J2704; J3010; J7120; Q4116; Q9968

== ENCOUNTER 2025-05-23 06:47 | Day surgery (SDC) | payer OTHER, SELFPAY ==
[2025-05-22 09:05] VITALS: BMI 33.6
--- NOTE | 2025-05-23 07:04 | WPDHPUPDATE1 ---
History and Physical Update Update Date/Time: 05/23/25 07:04 Patient seen and examined in pre-operative holding area. No interval change in medical history or symptoms. Patient remembers previous discussion of benefits and alternatives to procedure. Continues to desire to proceed with excision and closure and washout right breast wound. I reviewed the risks including but not limited to bleeding ,infection, asymmetry, undesireable cosmetic appearance, partial/total skin loss, no change or worsening of symptoms, change in sensation. I discussed the possible use of assistants and their level of participation in the case. Patient stated understanding and signed the consent form wishing to proceed
--- NOTE | 2025-05-23 07:05 | W.PM.PROC2 ---
Procedure Note - Detailed Date of Procedure 05/23/25 Pre-op Diagnosis History Ductal Carcinoma In Situ-Right Breast, open wound right breast Post-op Diagnosis Same Procedure Performed revision of reconstructed breast Surgeon Jayne Yeung MD Tooling Engineer Merari Landon PA-C Anesthesia MAC Description of Procedure Patient was seen in the preoperative holding area where the consent form was signed in the right breast was marked. Patient was taken back to the operating room on the stretcher in the supine position. Time-out was performed with Anesthesia, surgeon, and staff agreeing on patient's name, site, and surgery to be performed. SCDs were placed on the lower extremities and inflated. Antibiotics were given IV. After anesthesia administered sedation the right breast was prepped and draped in the usual sterile fashion. I injected cc of 1% lidocaine with epinephrine and 0.5% Marcaine plain around the operative site. Using a 15 blade scalpel I proceeded with making an elliptical incision around the open wound of the right breast with 3mm margins extending this superiorly to encompass her previous mastectomy scar and prevent skin bridging. given patient's previous history of radiation on this breast the skin was less pliable and had a constricted irregularity just lateral to the closure site. Additional skin was excised medially and laterally to account for dog ears and to address this radiated skin to improve closure. .This was done through skin and dermis with a 15 blade scalpel. I proceeded with EN bloc resection of this open wound with both 15 blade scalpel and Bovie cautery. A small seroma was drained from this subq space. The wound appeared to only involve the subcutaneous tissue and while alloderm was visible after resection the wound did not seem to clearly communicate with this as there was a reasonable amount of subcutaneous tissue between the two planes. Dimension of excision with margins was 3.1cm. There was no communication with the implant pocket.. Using bovie cautery I elevated skin flaps in subcutaneous plane to help advance and reduce tension on closure as well as to improve ability to estephania skin given the radiation changes. I Irrigated with antibiotic irrigation. The wound was closed with 3-0 Vicryl suture and 4-0 monocryl for subcuticuilar with 3-0 nylon suture for further reinformencent. Total length of closure was 7cm A dressing of Mastisol, Steri-Strips, 4 x 4, Tegaderm, ABD and a breast binder was then applied. The patient was awakened from anesthesia and transferred to the recovery room in stable condition. Complications: None Estimated blood loss: 2 cc Disposition: Patient tolerated the procedure well and will go home later today Merari Landon PA-C was essential for positioning, retraction, closure and dressing placement [facility] Billing Surgery - Charge Forward: Surgery Billing ([id number]. same for merari adding )
--- OUTSIDE RECORDS SUMMARY | 2025-05-23 07:30 | XMS_ITS | Clinical Summary ---
Author Organization [employer] Address [address] [place] [address] Care Team Providers Care Promotions Firm Accounts Manager Name Role Phone Ruiz Krishna MD Primary Care Provider [phone] Allergies Active Allergy Reactions Criticality Noted Date [...] mouth Continuous as needed for Pain. Active tamoxifen (NOLVADEX) 20 mg tablet Take 1 Tablet (20 mg) by mouth daily. 90 Tablet 3 Active Active Problems No known active problems Encounters Date Type Department Care Team Description 03/21/2025 10:00 AM CDT Office Visit [facility] Oncology and Hematology - [address] [place] [address] Rg Potter MD Malignant neoplasm of upper-outer quadrant of left breast in female, estrogen receptor positive (CMS/HCC) (Primary Dx) 03/21/2025 External Device Data STL ABSTRACTION Provider, Abstract 03/20/2025 External Device Data STL ABSTRACTION Provider, Abstract 03/19/2025 External Device Data STL ABSTRACTION Provider, Abstract 02/28/2025 4:30 PM CDT Telephone Check Up [facility] - [address] [place] [address] Rg Potter MD from Last 3 Months Family History Medical [...] Never Smokeless Tobacco: Never Tobacco Cessation:Counseling Given: Not Answered Alcohol Use Standard Drinks/Week Comments Yes 0 (1 standard drink = 0.6 oz pur e alcohol) Occasionally Comments Unknown Sex and Gender Information Value Date Recorded Sex Assigned at Not on file Legal Sex Female 5:41 AM WRISTER Gender Identity Not on file Sexual Orientation Not on file Last Filed Vital Signs Vital Sign Reading Time Taken Comments Blood Pressure 118/74 03/21/2025 10:03 AM CDT Pulse 85 03/21/2025 10:03 AM CDT Temperature 36.7 C (98 F) 03/21/2025 10:03 AM CDT Respiratory Rate 16 03/21/2025 10:03 AM CDT Oxygen Saturation 98% 03/21/2025 10:03 AM CDT Inhaled Oxygen Concentration - - Weight 82.1 kg (181 lb) 03/21/2025 10:03 AM CDT Height 157.5 cm (5' 2) 02/07/2025 3:20 PM CDT Body Mass Index 33.11 02/07/2025 3:20 PM CDT Plan of Treatment Upcoming Encounters Date Type Department Care Team (Late st Contact Info) Description 06/21/2025 8:45 AM CDT Office Visit [facility] - [place] [address] [place] [address] Rg Potter MD [address] [facility] [address] [place] [address] Health Maintenance Due Date Last [...] 01/13/20 18, 01/12/2018, 03/09/2016, Additional history exists Preventative Visit- Commercial 10/31/2024 0 06/28/2023, 05/11/2022, 12/21/2017 INFLUENZA VACCINE (#1) 2025 08/08/2015, 2011 Procedures Procedure Name Priority Date/Time [...] Relevant to Health Maintenance Insurance Care Teams Promotions Firm Accounts Manager Relationship Specialty Start Date End Date Ruiz Krishna MD [address] [place] [address] PCP - General 12/11/08
--- OUTSIDE RECORDS SUMMARY | 2025-05-23 07:30 | XMS_ITS | Encounter Summary ---
Author Organization [facility] Address [address] [place] [address] Care Team Providers Care Card Cutter Helper Name Role Phone Ruiz Krishna MD Primary Care Provider [phone] Encounter Details Date Type Department Care Team (Latest Contact Info) Description 12/11/2008 Outpatient Historical [facility] [place] Radiation Oncology [place] [address] [place] [address] [place] [address] Xiomara Guerra MD NO ADDRESS ON FILE Malignant Neoplasm of Upper-Inner Quadrant of Female Breast (CMS/HCC) Social History Tobacco Use Types Packs/Day Years Used Date Smoking Tobacco: Never Assessed Comments Unknown Sex and Gender Information Value Date Recorded Sex Assigned at Not on file Legal Sex Female 5:41 AM HAND BOOKBINDER Gender Identity Not on file Sexual Orientation Not on file documented as of this encounter Plan of Treatment Upcoming Encounters Date Type Department Care Team (Late st Contact Info) Description 06/21/2025 8:45 AM CDT Office Visit [facility] [place] Oncology and Hematology - Colin [address] [facility] [address] [place] [address] Rg Potter MD [address] [facility] [address] [place] [address] documented as of this encounter Visit Diagnoses Diagnosis Malignant neoplasm of upper-inner quadrant of female breast (CMS/HCC) Malignant neoplasm of upper-inner quadrant of female breast documented in this encounter Care Teams Card Cutter Helper Relationship Specialty Start Date End Date Ruiz Krishna MD [address] [facility] [place] [address] PCP - General 12/11/08 documented as of this encounter
--- OUTSIDE RECORDS SUMMARY | 2025-05-23 07:31 | XMS_ITS | Encounter Summary ---
Author Organization [facility] Address [address] [place] [address] Care Team Providers Care Camera Assembler Name Role Phone Ruiz Krishna MD Primary Care Provider [phone] Encounter Details Date Type Department Care Team (Latest Contact Info) Description 01/12/2009 Outpatient Historical [facility] Radiation Oncology [place] [address] [place] [address] [place] [address] Xiomara Guerra MD NO ADDRESS ON FILE Malignant Neoplasm of Upper-Inner Quadrant of Female Breast (CMS/HCC) Social History Tobacco Use Types Packs/Day Years Used Date Smoking Tobacco: Never Assessed Comments Unknown Sex and Gender Information Value Date Recorded Sex Assigned at Not on file Legal Sex Female 5:41 AM GOLF BALL COVER TREATER Gender Identity Not on file Sexual Orientation Not on file documented as of this encounter Plan of Treatment Upcoming Encounters Date Type Department Care Team (Late st Contact Info) Description 06/21/2025 8:45 AM CDT Office Visit [facility] Oncology and Hematology - [place] [address] [facility] [address] [place] [address] Rg Potter MD [address] [facility] [address] [place] [address] documented as of this encounter Visit Diagnoses Diagnosis Malignant neoplasm of upper-inner quadrant of female breast (CMS/HCC) Malignant neoplasm of upper-inner quadrant of female breast documented in this encounter Care Teams Camera Assembler Relationship Specialty Start Date End Date Ruiz Krishna MD [address] [facility] [place] [address] PCP - General 12/11/08 documented as of this encounter
--- OUTSIDE RECORDS SUMMARY | 2025-05-23 07:31 | XMS_ITS | Clinical Summary ---
Author Organization [facility] Address [address] [place] [address] Phone Care Team Providers Care Carding Utility Tender Name Role Phone Ruiz Krishna MD Primary Care Provider [phone] Family History Medical History Relation Name Comments [...] Cervical Cancer Screening (CCS) 1995 HPV/Cotest 1995 Cologuard 2010 Colonoscopy 2010 Colorectal Cancer Screening 2010 Immunochemical Fecal Occult Blood 2010 Pneumococcal Immunization (5 0+ years) (1 of 1 - PCV) 2015 Zoster Immunization (1 of 2) 2015 Mammogram 03/09/2017 03/09/2016 SARS-COV-2 Immunization ( - 2023- season) 2024 Influenza Immunization (#1) 2025 Respiratory Syncytial Virus (RSV) Immunization (Adult) (1 - 1-dose 75+ series) 2040 Hepatitis C Virus (HCV) Screening Completed 017 Human Papillomavirus (HPV) Immunization Aged Out No longer eligible b ased on patient's age to complete this topic Meningococcal Immunization (ACWY) Aged Out No longer eligible based on patient's age to complete this topic Rotavirus Immunization Aged Out No lo nger eligible based on patient's age to complete this topic Procedures Procedure Name Priority Date/Time Associated Diagnosis Comments HEPATITIS C ANTIBODY Routine 02/10/2017 11:11 AM CDT Encounter for general adult medical examination w/o abnormal findings QUINN SCREENING BILATERAL DIGITAL W CAD Routine 03/09/2016 12:04 PM CDT Visit for screening mammogram from Last 3 Months or Most Recently Relevant to Health Maintenance Results * HEPATITIS C ANTIBODY (02/10/2017 11:11 AM CDT) hepatitis C antibody 0.07 <1 S/CO 02/10/2017 11:19 PM CDT [facility] Comment: Signal/Cutoff ratio < 0.79 is Nondetected Signal/Cutoff ratio 0.80-0.99 is Grayzone Signal/Cutoff ratio > 0.99 is Detected Supplemental assays are recommended if signal/cutoff ratio is >/=1.00. Signal/cutoff ratio result >/= 5.00 is 97% predictive of positivity for recombinant immunoblot assay (RIBA) and will be reported to the [place] Department of Public Health as required. Blood specimen (specimen) Venipuncture / Unknown 02/10/2017 11:11 AM CDT 02/10/2017 2:18 PM CDT us Ruiz Krishna MD CHEMISTRY ORDERABLES Final Resul t [facility] [address] [place] [address], [place] * QUINN SCREENING BILATERAL DIGITAL W CAD [...] is made to exams dated: 12/16/2014, 09/21/2013 [facility], and 02/22/2011 [facility]. [...] exam. Electronically signed by: Sammy lancaster/mervat:03/09/2016 13:34:43 Pipe Liner: Margaret VANEGAS)(Mao), [facility] letter sent: Normal Exam Reading location: [facility] BI-RADS: 1 Negative Procedure Note Sammy [...] is made to exams dated: 12/16/2014, 09/21/2013 [facility], and 02/22/2011 [facility]. [...] exam. Electronically signed by: Sammy lancaster/mervat:03/09/2016 13:34:43 Pipe Liner: Margaret YUNG(Nicole)(M), [facility] letter sent: Normal Exam Reading location: [facility] BI-RADS: 1 Negative us Sammy Carballo MD IMG MAMMO ORDERABLES Fin al Result from Last 3 Months or Most Recently Relevant to Health Maintenance Care Teams Carding Utility Tender Relationship Specialty Start Date End Date Ruiz Krishna MD [address] [place] [address] PCP - General Internal Medicine 02/10/16
[2025-05-23 07:51] VITALS: BP 118/78; PULSE 77; RESP 18; TEMP 36.6; O2SAT 100; BMI 33.4
--- NOTE | 2025-05-23 08:02 | WPDANESEPPF ---
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 Patient Data Age: 59 Gender: F Height: 1.57 m Weight: 82.9 kg Last Vital Signs Temp 97.9 F 05/23/25 07:51 Pulse 77 05/23/25 07:51 Resp 18 05/23/25 07:51 BP 118/78 05/23/25 07:51 Pulse Ox 100 05/23/25 07:51 O2 Del Method Room Air 05/23/25 07:51 Allergies Allergy/AdvReac Type Severity Reaction Status Date / Time nickel Allergy Mild Rash Verified 05/23/25 07:42 dermabond AdvReac Mild rash Uncoded 05/23/25 07:42 Home Medications ?Medication ?Instructions ?Recorded ?Confirmed ?Type Calcium 600 2 tab-cap PO DAILY 01/13/24 05/22/25 History Vitamin D2 1 cap PO WEEKLY 01/13/24 05/23/25 History multivitamin 1 tablet PO DAILY 01/13/24 05/22/25 History silver sulfadiazine 1 % topical 1 applic topical DAILY #25 grams 03/18/25 05/23/25 Rx cream (Silvadene) tamoxifen 20 mg tablet 20 mg PO DAILY 05/21/25 05/23/25 History Patient hx anesthesia problems: none Family hx anesthesia problems: none Results Review: All pre-operative results and documents have been reviewed as part of the pre-operative evaluation. [facility] Past Medical History Medical History History of radiation therapy Erythema of breast Acquired breast deformity History of right breast cancer Surgical History Surgical History History of breast reconstruction History of removal of cyst History of tonsillectomy History of lumpectomy Family History Family History Mother Family history of osteoporosis Family history of malignant neoplasm of breast in first degree relative Father Hypertension Social History Social History (Updated 05/21/25 @ 15:05 by Kamala Ulloa Social History: Caffeine-daily Smoking status: Never smoker Second hand tobacco smoke exposure: Yes ( smokes) Alcohol intake: current Alcohol use details: occasionally Substance use: never Substance use type: does not use Do You Feel Safe in your Home?: Yes Lack of Transportation: No Lack of Food: Never True Current Housing: Decline to Answer Concerned About Future Housing: Decline to Answer Difficulty Paying Gas/Electric Bills: Decline to Answer Difficulty Paying for Meds: Decline to Answer Currently Unemployed: Decline to Answer Education: Trade/Vocational Certificate Difficulty w/ Childcare or Family Care: Decline to Answer Living arrangements: with family Ting - Rachelle Final PreProcedure Day of Procedure 05/23/25 08:02 Heart: regular rate and rhythm Lungs: clear to auscultation Airway: Mallampati scale class II Last oral intake: >/= 8 hours ASA classification: II Anesthetic plan: proceed Anesthesia type and monitoring: monitored anesthesia care Results Review: All pre-operative results and documents have been reviewed as part of the pre-operative evaluation. Informed Consent: The patient's anesthetic plan and its attendant risks and benefits were discussed with the patient/family/POA. Questions were solicited and answers provided to the satisfaction of the patient/family/POA.
[2025-05-23] MEDS: ACETAMINOPHEN 500 MG TABLET 1000 MG PO (08:08)
[2025-05-23] MEDS: LACTATED RINGERS 1,000 ML 30 ML IV CONT (08:10)
[2025-05-23] MEDS: ceFAZolin SODIUM 2 GM/20 ML SW SYRINGE IV PUSH (09:00)
[2025-05-23] MEDS: LIDO 1%/EPINEPHRINE 1:100,000 20 ML VIAL INFILTRATE (09:36)
[2025-05-23] MEDS: BUPivacaine HCL 0.5% 10 ML AMP INFILTRATE (09:37)
[2025-05-23 09:38] VITALS: BP 105/61; PULSE 86; RESP 15; O2SAT 99
[2025-05-23 09:48] VITALS: BP 110/71; PULSE 63; RESP 16; O2SAT 100
--- NOTE | 2025-05-23 09:48 | WPDANESPN ---
Anes - Prog Note Post-Op Date/Time: 05/23/25 09:48 Vital Signs: Last Vital Signs Temp 97.9 F 05/23/25 07:51 Pulse 86 05/23/25 09:38 Resp 15 05/23/25 09:38 BP 105/61 05/23/25 09:38 Pulse Ox 99 05/23/25 09:38 O2 Del Method Room Air 05/23/25 09:38 Pain Score (VAS): no Patient Feedback: Patient satisfied with anesthetic care.
[2025-05-23 09:58] VITALS: BP 115/74; PULSE 67; RESP 16; O2SAT 100
== END 2025-05-23 10:20 | disposition home or self-care (01) ==
PROVIDERS: Visit Provider Plastic Surgery
PROC: (CPT 19380; principal; 2025-05-23 08:45)
DX: T81.89XA Other complications of procedures, not elsewhere classified, initial encounter (principal); Y83.8 Other surgical procedures as the cause of abnormal reaction of the patient, or of later complication, without mention of misadventure at the time of the procedure; Z86.000 Personal history of in-situ neoplasm of breast; Z90.13 Acquired absence of bilateral breasts and nipples
CPT/HCPCS: 19380

== ENCOUNTER 2025-05-23 07:40 | Outpatient (NON) | payer OTHER, SELFPAY ==
--- NOTE | 2025-05-23 | S_PTH ---
PATIENT: Ariana Colvin LOC: [facility] U#:[id number] AGE/SX: 59/F ROOM: RE05/23/[address]: Jyane Yeung MD : 1965 BED: DIS: 05/23/2025 SPEC #: [id number] RECD: 05/24/25 07:08 STATUS: ALETA REQ #: [id number] GERBER: 05/23/25 00:[address]: Jayne Yeung DEPT: [facility] Surgical RECD BY: Cheryl White ENTERED: 05/24/25 07:09 SP TYPE: Surgical OTHR DR: UNKNOWN,DOCTOR Tissues: A - Breast Tissue Procedures: Hematoxylin and Eosin Stain Gross and Microscopic Level 4 Comments: @ Originally on account #[id number] Req #[id number]
--- OUTSIDE RECORDS SUMMARY | 2025-05-24 07:43 | XMS_ITS | Clinical Summary ---
Author Organization [facility] Address [address] [place] [address] Phone Care Team Providers Care Bicycle Repairer Name Role Phone Ruiz Krishna MD Primary Care Provider [phone] Family History Medical History Relation Name Comments [...] Mammogram 03/09/2017 03/09/2016 SARS-COV-2 Immunization ( - 2023-25 season) 2024 Influenza Immunization (#1) 2025 Respiratory [...] <1 S/CO 02/10/2017 11:19 PM CDT [facility] Comment: Signal/Cutoff ratio < 0.79 is Nondetected Signal/Cutoff ratio 0.80-0.99 is Grayzone Signal/Cutoff ratio > 0.99 is Detected Supplemental assays are recommended if signal/cutoff ratio is >/=1.00. Signal/cutoff ratio result >/= 5.00 is 97% predictive of positivity for recombinant immunoblot assay (RIBA) and will be reported to the [place] Department of Public Health as required. Blood specimen (specimen) Venipuncture / Unknown 02/10/2017 11:11 AM CDT 02/10/2017 2:18 PM CDT us Ruiz Krishna MD CHEMISTRY ORDERABLES Final Resul t [facility] [address] [place] [address], [place] * QUINN SCREENING BILATERAL DIGITAL W [...] is made to exams dated: 12/16/2014, 09/21/2013 [facility], and 02/22/2011 [facility]. BREAST TISSUE:There are scattered fibroglandular densities in [...] exam. Electronically signed by: Sammy lancaster/mervat:03/09/2016 13:34:43 Pumper Helper: Margaret VANEGAS)(Mao), [facility] letter sent: Normal Exam Reading location: [facility] BI-RADS: 1 Negative Procedure Note Sammy [...] is made to exams dated: 12/16/2014, 09/21/2013 [facility], and 02/22/2011 [facility]. BREAST TISSUE:There are scattered fibroglandular densities in [...] exam. Electronically signed by: Sammy lancaster/mervat:03/09/2016 13:34:43 Pumper Helper: Margaret YUNG(Nicole)(M), [facility] letter sent: Normal Exam Reading location: [facility] BI-RADS: 1 Negative us Sammy Carballo MD IMG MAMMO ORDERABLES Fin al Result from Last 3 Months or Most Recently Relevant to Health Maintenance Care Teams Bicycle Repairer Relationship Specialty Start Date End Date Ruiz Krishna MD [address] [place] [address] PCP - General Internal Medicine 02/10/16
--- OUTSIDE RECORDS SUMMARY | 2025-05-24 07:43 | XMS_ITS | Encounter Summary ---
Author Organization [facility] Address [address] [place] [address] Care Team Providers Care Manufacturing Cost Estimator Name Role Phone Ruiz Krishna MD Primary Care Provider [phone] Encounter Details Date Type Department Care Team (Latest Contact Info) Description 12/11/2008 Outpatient Historical [facility] Radiation Oncology [place] [address] [place] [address] [place] [address] Xiomara Guerra MD NO ADDRESS ON FILE Malignant Neoplasm of Upper-Inner Quadrant of Female Breast (CMS/HCC) Social History Tobacco Use Types Packs/Day Years Used Date Smoking Tobacco: Never Assessed Comments Unknown Sex and Gender Information Value Date Recorded Sex Assigned at Not on file Legal Sex Female 5:41 AM BRICK OR BLOCK MAKER Gender Identity Not on file Sexual Orientation Not on file documented as of this encounter Plan of Treatment Upcoming Encounters Date Type Department Care Team (Late st Contact Info) Description 06/21/2025 8:45 AM CDT Office Visit [facility] Oncology and Hematology - [place] [address] [facility] [address] [place] [address] Rg Potter MD [address] [facility] [address] [place] [address] documented as of this encounter Visit Diagnoses Diagnosis Malignant neoplasm of upper-inner quadrant of female breast (CMS/HCC) Malignant neoplasm of upper-inner quadrant of female breast documented in this encounter Care Teams Manufacturing Cost Estimator Relationship Specialty Start Date End Date Ruiz Krishna MD [address] [place] [address] PCP - General 12/11/08 documented as of this encounter
--- OUTSIDE RECORDS SUMMARY | 2025-05-24 07:43 | XMS_ITS | Encounter Summary ---
Author Organization [facility] Address [address] [place] [address] Care Team Providers Care Catechist Name Role Phone Ruiz Krishna MD Primary Care Provider Encounter Details Date Type Department Care Team (Latest Contact Info) Description 01/12/2009 Outpatient Historical [facility] Radiation Oncology [place] [address] [place] [address] [place] [address] Xiomara Guerra MD NO ADDRESS ON FILE Malignant Neoplasm of Upper-Inner Quadrant of Female Breast (CMS/HCC) Social History Tobacco Use Types Packs/Day Years Used Date Smoking Tobacco: Never Assessed Comments Unknown Sex and Gender Information Value Date Recorded Sex Assigned at Not on file Legal Sex Female 5:41 AM TOOL 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 TECHNICIAN Gender Identity Not on file Sexual Orientation Not on file documented as of this encounter Plan of Treatment Upcoming Encounters Date Type Department Care Team (Late st Contact Info) Description 06/21/2025 8:45 AM CDT Office Visit [facility] Oncology and Hematology - Colin [address] [facility] [address] [place] [address] Rg Potter MD [address] [facility] [address] [place] [address] documented as of this encounter Visit Diagnoses Diagnosis Malignant neoplasm of upper-inner quadrant of female breast (CMS/HCC) Malignant neoplasm of upper-inner quadrant of female breast documented in this encounter Care Teams Catechist Relationship Specialty Start Date End Date Ruiz Krishna MD [address] [facility] [address] PCP - General 12/11/08 documented as of this encounter
--- OUTSIDE RECORDS SUMMARY | 2025-05-24 07:43 | XMS_ITS | Clinical Summary ---
Author Organization [employer] Address [address] [place] [address] Care Team Providers Care High Speed Printer Operator Name Role Phone Ruiz Krishna MD Primary Care Provider [phone] Allergies Active Allergy Reactions Criticality Noted Date [...] Description 03/21/2025 10:00 AM CDT Office Visit [facility] Oncology and Hematology - [address] [place] [address] Rg Potter MD Malignant neoplasm of upper-outer quadrant of left breast in female, estrogen receptor positive (CMS/HCC) (Primary Dx) 03/21/2025 External Device Data STL ABSTRACTION Provider, Abstract 03/20/2025 External Device Data STL ABSTRACTION Provider, Abstract 03/19/2025 External Device Data STL ABSTRACTION Provider, Abstract 02/28/2025 4:30 PM CDT Telephone Check Up [facility] Oncology and Hematology - [address] [place] [address] Rg Potter MD from Last [...] on file Legal Sex Female 5:41 AM SERVICE MANAGER Gender Identity Not on file Sexual [...] Description 06/21/2025 8:45 AM CDT Office Visit [facility] Oncology and Hematology - [facility] [address] [facility] [address] [place] [address] Rg Potter MD [address] [facility] [address] [place] [address] Health Maintenance Due Date Last [...] Relevant to Health Maintenance Insurance Care Teams High Speed Printer Operator Relationship Specialty Start Date End Date Ruiz Krishna MD [address] [place] [address] PCP - General 12/11/08
== END 2025-05-23 07:41 | disposition home or self-care (01) ==
PROVIDERS: Visit Provider Plastic Surgery
DX: Z90.13 Acquired absence of bilateral breasts and nipples (principal)
CPT/HCPCS: 87070; 87075; 87205; 88305

== ENCOUNTER 2025-06-05 14:23 | Outpatient (CLI) | payer OTHER, SELFPAY ==
--- OUTSIDE RECORDS SUMMARY | 2025-06-05 14:30 | XMS_ITS | Clinical Summary ---
Author Organization [facility] Address [address] [place] [address] Phone Care Team Providers Care Pipelines Supervisor Name Role Phone Ruiz Krishna MD Primary Care Provider [phone] Family History Medical History Relation Name Comments [...] <1 S/CO 02/10/2017 11:19 PM CDT [facility] Comment: Signal/Cutoff ratio < 0.79 is Nondetected Signal/Cutoff ratio 0.80-0.99 is Grayzone Signal/Cutoff ratio > 0.99 is Detected Supplemental assays are recommended if signal/cutoff ratio is >/=1.00. Signal/cutoff ratio result >/= 5.00 is 97% predictive of positivity for recombinant immunoblot assay (RIBA) and will be reported to the [place] Department of Public Health as required. Blood specimen (specimen) Venipuncture / Unknown 02/10/2017 11:11 AM CDT 02/10/2017 2:18 PM CDT us Ruiz Krishna MD CHEMISTRY ORDERABLES Final Resul t [facility] [address] [place] [address], [place] * QIUNN SCREENING BILATERAL DIGITAL W CAD (03/09/2016 12:04 [...] is made to exams dated: 12/16/2014, 09/21/2013 [facility], and 02/22/2011 [facility]. BREAST TISSUE:There are scattered fibroglandular [...] exam. Electronically signed by: Sammy lancaster/mervat:03/09/2016 13:34:43 Organ Grinder: Margaret VANEGAS)(Mao), [facility] letter sent: Normal Exam Reading location: [place] [...] is made to exams dated: 12/16/2014, 09/21/2013 [facility], and 02/22/2011 [facility]. BREAST TISSUE:There are scattered fibroglandular [...] exam. Electronically signed by: Sammy lancaster/mervat:03/09/2016 13:34:43 Organ Grinder: Margaret YUNG(Nicole)(M), [facility] letter sent: Normal Exam Reading location: [facility] BI-RADS: 1 Negative us Sammy Carballo MD IMG MAMMO ORDERABLES Fin al Result from Last 3 Months or Most Recently Relevant to Health Maintenance Care Teams Pipelines Supervisor Relationship Specialty Start Date End Date Ruiz Krishna MD [address] [place] [address] PCP - General Internal Medicine 02/10/16
--- OUTSIDE RECORDS SUMMARY | 2025-06-05 14:30 | XMS_ITS | Encounter Summary ---
Author Organization [facility] Address [address] [place] [address] Care Team Providers Care Slitter Helper Name Role Phone Ruiz Krishna MD Primary Care Provider [phone] Encounter Details Date Type Department Care Team (Latest Contact Info) Description 12/11/2008 Outpatient Historical [facility] Radiation Oncology [place] [address] [place] [address] [place] [phone] Xiomara Guerra MD NO ADDRESS ON FILE Malignant Neoplasm of Upper-Inner Quadrant of Female Breast (CMS/HCC) Social History Tobacco Use Types Packs/Day Years Used Date Smoking Tobacco: Never Assessed Comments Unknown Sex and Gender Information Value Date Recorded Sex Assigned at Not on file Legal Sex Female 5:41 AM ALUMINUM POLISHER Gender Identity Not on file Sexual Orientation Not on file documented as of this encounter Plan of Treatment Upcoming Encounters Date Type Department Care Team (Late st Contact Info) Description 06/21/2025 8:45 AM CDT Office Visit [facility] Oncology and Hematology - [place] [address] [facility] [address] [place] [address] Rg Potter MD [address] [facility] [address] [place] [address] documented as of this encounter Visit Diagnoses Diagnosis Malignant neoplasm of upper-inner quadrant of female breast (CMS/HCC) Malignant neoplasm of upper-inner quadrant of female breast documented in this encounter Care Teams Slitter Helper Relationship Specialty Start Date End Date Ruiz Krishna MD [address] [place] [address] PCP - General 12/11/08 documented as of this encounter
--- OUTSIDE RECORDS SUMMARY | 2025-06-05 14:30 | XMS_ITS | Clinical Summary ---
Author Organization [employer] Address [address] [place] [address] Care Team Providers Care Graphic Designer Name Role Phone Ruiz Krishna MD Primary Care Provider [phone] Allergies Active Allergy Reactions Criticality Noted Date [...] Description 03/21/2025 10:00 AM CDT Office Visit [facility] Oncology and Hematology - Colin Elva Augustine [address] [place] [id number] Rg Potter MD Malignant neoplasm of upper-outer quadrant of left breast in female, estrogen receptor positive (CMS/HCC) (Primary Dx) 03/21/2025 External Device Data STL ABSTRACTION Provider, Abstract 03/20/2025 External Device Data [facility] ABSTRACTION Provider, Abstract 03/19/2025 External Device Data [facility] ABSTRACTION Provider, Abstract from Last 3 Months Family History Medical [...] on file 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 Gender Identity Not on file Sexual Orientation [...] CDT Office Visit [facility] Oncology and Hematology [facility] [address] [facility] [address] [place] [address] Rg Potter MD [address] [facility] [address] [place] [address] Health Maintenance Due Date Last [...] Most Recently Relevant to Health Maintenance Insurance [facility] [employer] [id number] Care Teams Graphic Designer Relationship Specialty Start Date End Date Ruiz Krishna MD [address] [place] [address] [facility] - General 12/11/08
--- OUTSIDE RECORDS SUMMARY | 2025-06-05 14:30 | XMS_ITS | Encounter Summary ---
Author Organization [facility] Address [address] [place] [address] Care Team Providers Care Manager Equipment Name Role Phone Ruiz Krishna MD Primary Care Provider [phone] Encounter Details Date Type Department Care Team (Latest Contact Info) Description 01/12/2009 Outpatient Historical [facility] Radiation Oncology [place] [address] [place] [address] [place] [phone] Xiomara Guerra MD NO ADDRESS ON FILE Malignant Neoplasm of Upper-Inner Quadrant of Female Breast (CMS/HCC) Social History Tobacco Use Types Packs/Day Years Used Date Smoking Tobacco: Never Assessed Comments Unknown Sex and Gender Information Value Date Recorded Sex Assigned at Not on file 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 Gender Identity Not on file Sexual Orientation Not on file documented as of this encounter Plan of Treatment Upcoming Encounters Date Type Department Care Team (Late st Contact Info) Description 06/21/2025 8:45 AM CDT Office Visit [facility] Oncology and Hematology - Colin [address] [facility] [address] [place] [address] Rg Potter MD [address] [facility] [address] [place] [address] documented as of this encounter Visit Diagnoses Diagnosis Malignant neoplasm of upper-inner quadrant of female breast (CMS/HCC) Malignant neoplasm of upper-inner quadrant of female breast documented in this encounter Care Teams Manager Equipment Relationship Specialty Start Date End Date Ruiz Krishna MD [address] [facility] [place] [address] PCP - General 12/11/08 documented as of this encounter
[2025-06-05 14:44] LABS: Hematocrit 39.5 % (37.0-47.0); Hemoglobin 12.6 g/dL (12.0-15.0); Immature Granulocyte Percent A 0.2 % (0-0.5); Lymphocytes Absolute Auto 2.97 K/mm3 (0.9-3.2); Mean Corpuscular HGB Conc 31.9 g/dl (32-36); Mean Corpuscular Hemoglobin 30.0 pg (26-34); Mean Corpuscular Volume 94.0 fl (80-100); Nucleated Red Blood Cells Absolute Auto 0.000 K/mm3 (0.0-0.012); Nucleated Red Blood Cells Perc 0.0 % (0.0-0.2); Platelet Count Result 192 k/mm3 (150-375); Red Blood Count 4.20 M/mm3 (4.2-5.4); White Blood Count 8.5 K/mm3 (4.5-10.0)
[2025-06-05 16:37] LABS: Alanine Aminotransferase 31 U/L (6-35); Albumin Level 4.5 g/dL (3.5-5.1); Alkaline Phosphatase 52 U/L (38-126); Anion Gap 7 mmol/L (4-12); Aspartate Amino Transferase 49 U/L (14-36); Bilirubin,Total 0.5 mg/dL (0.2-1.3); Blood Urea Nitrogen 13 mg/dL (7-17); Calcium 9.2 mg/dL (8.4-10.2); Carbon Dioxide 24 mmol/L (22-30); Chloride 104 mmol/L (98-107); Estimated Glomerular Filt Rate > 60; Glucose 151 mg/dL (65-110); Potassium 4.1 mmol/L (3.4-5.0); Sodium 135 mmol/L (137-145); Total Protein 7.1 g/dL (6.3-8.2)
== END 2025-06-05 14:24 | disposition home or self-care (01) ==
LOC: ANHLAB 14:23
PROVIDERS: Visit Provider Internal Medicine Hematology & Oncology
DX: C50.412 Malignant neoplasm of upper-outer quadrant of left female breast (principal); Z17.0 Estrogen receptor positive status [ER+]
CPT/HCPCS: 36415; 80053; 85025; 86300

== ENCOUNTER 2025-09-05 06:00 | Day surgery (SDC) | payer OTHER, SELFPAY ==
[2025-06-18 14:10] VITALS: BMI 33.6
[2025-08-28 09:27] VITALS: BMI 33.0
[2025-09-05 06:18] VITALS: BP 137/80; PULSE 80; RESP 16; TEMP 36.9; O2SAT 100
[2025-09-05] MEDS: ACETAMINOPHEN 500 MG TABLET 1000 MG PO (06:22)
[2025-09-05] MEDS: LACTATED RINGERS 1,000 ML 30 ML IV CONT (06:25)
--- NOTE | 2025-09-05 06:46 | PM.HPGS ---
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 No interval change in medical history or symptoms. Patient remembers previous discussion of benefits and alternatives to procedure. Continues to desire to proceed with revision left lateral breast incision, possible revision left medial breast incision, complex closure I reviewed the risks including but not limited to bleeding ,infection, asymmetry, undesireable cosmetic appearance, partial/total skin loss, no change or worsening of symptoms, change in sensation. I discussed the possible use of assistants and their level of participation in the case. Patient stated understanding and signed the consent form wishing to proceed Review of Systems Review of Systems: All systems reviewed & are unremarkable except as noted in HPI and below PMFSH Past Medical History Medical History History of radiation therapy Erythema of breast Acquired breast deformity History of right breast cancer Surgical History Surgical History History of breast reconstruction History of removal of cyst History of tonsillectomy History of lumpectomy Family History Family History Mother Family history of osteoporosis Family history of malignant neoplasm of breast in first degree relative Father Hypertension Social History Social History Social History: Caffeine-daily Smoking status: Never smoker Tobacco type: cigarettes Second hand tobacco smoke exposure: Yes ( smokes) Alcohol intake: current Alcohol use details: occasionally Substance use: never Substance use type: does not use Do You Feel Safe in your Home?: Yes Lack of Transportation: No Lack of Food: Never True Current Housing: Decline to Answer Concerned About Future Housing: Decline to Answer Difficulty Paying Gas/Electric Bills: Decline to Answer Difficulty Paying for Meds: Decline to Answer Currently Unemployed: Decline to Answer Education: Trade/Vocational Certificate Difficulty w/ Childcare or Family Care: Decline to Answer Living arrangements: with family Spiritual care concerns: No Meds Home Medications and Allergies Home Medications ?Medication ?Instructions ?Recorded ?Confirmed ?Type Calcium 600 2 tab-cap PO DAILY 01/13/24 09/05/25 History Vitamin D2 1 cap PO WEEKLY 01/13/24 09/05/25 History multivitamin 1 tablet PO DAILY 01/13/24 09/05/25 History tamoxifen 20 mg tablet 20 mg PO DAILY 05/21/25 09/05/25 History Allergies Allergy/AdvReac Type Severity Reaction Status Date / Time nickel Allergy Mild Rash Verified 09/05/25 06:17 dermabond AdvReac Mild rash Uncoded 08/29/25 08:12 Vital Signs Vital Signs - 24 hr 09/05/25 06:18 Temperature 36.9 C Pulse Rate 80 Respiratory Rate 16 Blood Pressure 137/80 Pulse Oximetry 100 Oxygen Delivery Room Air Exam Narrative: unchanged Assessment and Plan Assessment and plan (1) Acquired absence of bilateral breasts and nipples: Code(s): Z90.13 - Acquired absence of bilateral breasts and nipples Status: Acute Assessment and Plan: cont as above
--- NOTE | 2025-09-05 06:47 | W.PM.PROC2 ---
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 Consent form was signed. Patient was taken back to the operating room placed on the table in the supine position. Time-out was performed with Anesthesia, surgeon, and staff agreeing on patient's name, site, and surgery to be performed. SCDs were placed on the lower extremities inflated. Antibiotics were given IV. After Anesthesia administered sedation I injected 15 cc of 1% lidocaine with epinephrine and 0.5% Marcaine plain along the operative sites. The left breast was prepped and draped in the usual sterile fashion. I turned my attention 1st to the lateral area of the breast where I proceeded with making an elliptical incision around her previous incision extending laterally through skin and dermis with 15 blade scalpel. Bovie cautery was then to used to resect the excess subcutaneous skin and tissue. Part of the subcutaneous resection went just down to the breast capsule but did not violate the capsule in any way during the procedure. No implant was ever visualized. Irrigated with normal saline and hemostasis with Bovie cautery. Skin edges were trimmed for improved dog your closure. 3-0 Vicryl was used for deep subcutaneous closure. 3-0 Vicryl was used for dermal closure making sure to adjust lateral breast sweep skin draping upon closure. 4-0 Monocryl was used for subcuticular closure. Next I turned my attention to the area of concern on the left medial breast where I made an elliptical incision around this extending medially and laterally for dog-ear management and excise this skin and subcutaneous tissue to improve contour. I irrigated with normal saline and hemostasis with Bovie cautery. I closed with 3-0 Vicryl for dermis and 4-0 Monocryl for subcuticular closure. total length of clsoure 9cm A dressing of Mastisol, Steri-Strips, 4 x 4, Tegaderm, ABDs and a surgical bra was then applied. The patient was awakened from anesthesia and transferred to the recovery room in stable condition. Complications: None Estimated blood loss: 5 cc Disposition: Patient tolerated the procedure well and will go home later today [facility] Billing Surgery - Charge Forward: Surgery Billing ([id number] )
--- NOTE | 2025-09-05 07:11 | P.PNAN_ITS ---
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 Patient Data Age: 59 Gender: F Height: 1.57 m Weight: 84.7 kg Last Vital Signs Temp 98.4 F 09/05/25 06:18 Pulse 80 09/05/25 06:18 Resp 16 09/05/25 06:18 BP 137/80 09/05/25 06:18 Pulse Ox 100 09/05/25 06:18 O2 Del Method Room Air 09/05/25 06:18 Allergies Allergy/AdvReac Type Severity Reaction Status Date / Time nickel Allergy Mild Rash Verified 09/05/25 06:17 dermabond AdvReac Mild rash Uncoded 08/29/25 08:12 Home Medications ?Medication ?Instructions ?Recorded ?Confirmed ?Type Calcium 600 2 tab-cap PO DAILY 01/13/24 09/05/25 History Vitamin D2 1 cap PO WEEKLY 01/13/2404/24 History multivitamin 1 tablet PO DAILY 01/13/24 1 11/05/24 History tamoxifen 20 mg tablet 20 mg PO DAILY 05/21/2504/24 History Patient hx anesthesia problems: none Family hx anesthesia problems: none Results Review: All pre-operative results and documents have been reviewed as part of the pre- operative evaluation. [facility] Past Medical History Medical History History of radiation therapy Erythema of breast Acquired breast deformity History of right breast cancer Surgical History Surgical History History of breast reconstruction History of removal of cyst History of tonsillectomy History of lumpectomy Family History Family History Mother Family history of osteoporosis Family history of malignant neoplasm of breast in first degree relative Father Hypertension Social History Social History Social History: Caffeine-daily Smoking status: Never smoker Tobacco type: cigarettes Second hand tobacco smoke exposure: Yes ( smokes) Alcohol intake: current Alcohol use details: occasionally Substance use: never Substance use type: does not use Do You Feel Safe in your Home?: Yes Lack of Transportation: No Lack of Food: Never True Current Housing: Decline to Answer Concerned About Future Housing: Decline to Answer Difficulty Paying Gas/Electric Bills: Decline to Answer Difficulty Paying for Meds: Decline to Answer Currently Unemployed: Decline to Answer Education: Trade/Vocational Certificate Difficulty w/ Childcare or Family Care: Decline to Answer Living arrangements: with family Spiritual care concerns: No Anes - Eval Final PreProcedure Day of Procedure 09/05/25 07:11 Heart: regular rate and rhythm Lungs: clear to auscultation Airway: Mallampati scale class 1 Neurological: alert and oriented Last oral intake: >/= 8 hours ASA classification: II Anesthetic plan: proceed Anesthesia type and monitoring: monitored anesthesia care Results Review: All pre-operative results and documents have been reviewed as part of the pre- operative evaluation. Informed Consent: The patient's anesthetic plan and its attendant risks and benefits were discussed with the patient/family/POA. Questions were solicited and answers p rovided to the satisfaction of the patient/family/POA.
[2025-09-05] MEDS: ceFAZolin SODIUM 2 GM/20 ML SW SYRINGE IV PUSH (07:28)
[2025-09-05] MEDS: LIDO 1%/EPINEPHRINE 1:100,000 20 ML VIAL (07:56)
[2025-09-05] MEDS: BUPivacaine HCL 0.5% 10 ML AMP 20 ML (07:57)
[2025-09-05 08:11] VITALS: BP 102/60; PULSE 85; RESP 14; O2SAT 97
[2025-09-05 08:40] VITALS: BP 120/68; PULSE 72; RESP 16; O2SAT 100
--- OUTSIDE RECORDS SUMMARY | 2025-09-05 16:15 | XMS_ITS | Clinical Summary ---
Author Organization [facility] Medical Office Building [address] Address [address] [place] [address] Care Team Providers Care Technical Support Intern Name Role Phone Tanya Colin PT Unavailable Unavailable Katty Dowell PT Unavailable Unavailable Rg Potter MD Unavailable [phone] Alea Luna NP Unavailable Lilibeth Al MD Unavailable [phone] Jayne Yeung MD Unavailable [phone] Washington Mancia MD Primary Care Provider [phone] Allergies Active Allergy Reactions Criticality Noted Date Comments Nickel Medications cholecalciferol (VITAMIN D-3) 50,000 unit capsule Take 1 capsule (50,000 Units total) by mouth once a week Takes 10,000units 5 days a week Active tamoxifen (NOLVADEX) 20 mg tablet Take 1 tablet (20 mg total) by mouth daily 03/21/2025 Active Active Problems Problem Noted Date Diagnosed Date Elevated AST (SGOT) 06/05/2025 Assessment & Plan (06/25/2025 6:45 PM CDT): See Court HPI/AP. Bilateral foot pain 06/28/2023 Assessment & Plan (06/28/2023 3:58 PM CDT): Chronic. Bilateral bunions noted on physical exam. Referred to Podiatry for evaluation treatment Mixed hyperlipidemia 06/28/2023 Assessment & Plan (06/19/2025 10:35 AM CDT): See [facility] HPI/AP. Assessment & Plan (06/18/2025 5:37 PM CDT): >>ASSESSMENT AND PLAN FOR MIXED HYPERLIPIDEMIA WRITTEN ON 06/28/2023 3:58 PM BY ANTHONY BEARDEN MD Total cholesterol and LDL both elevated. ASCVD risk score 2%. Low risk for cardiovascular morbidity. Dietary and exercise recommendations given. Will continue to monitor >>ASSESSMENT AND PLAN FOR LIPEDEMA WRITTEN ON 06/28/2023 3:57 PM BY ANTHONY BEARDEN MD Bilateral legs. Refer patient to Plastic surgery for eval Bilateral bunions 06/28/2023 Winging of scapula 04/20/2018 Neck pain 04/14/2018 [...] comorbidity with body mass index (BMI) of 34.0 to 34.9 in adult 12/21/2017 Overview (06/19/2025): BMI fluctuates, general trend up. Assessment & Plan (06/19/2025 10:35 AM CDT): See [facility] HPI/AP. Assessment & Plan (12/21/2017 8:48 AM PROCESS PLANT OPERATOR): Obesity is improving with lifestyle modifications. Discussed the patient's BMI. The BMI is above average; BMI management plan is completed. General weight loss/lifestyle modification strategies discussed (elicit support from others; identify saboteurs; non-food rewards, etc). Tendinitis of wrist 03/26/2016 Overview (02/03/2017): Tendonitis of wrist, right History of breast cancer in female 05/11/2002 Assessment & Plan (06/25/2025 6:45 PM CDT): See [facility] HPI/AP. Resolved Problems Problem Noted Date Diagnosed Date Resolved Date Annual physical exam 05/11/2022 025 Overview (06/18/2025): Dr. Bearden. Assessment & Plan (06/28/2023 3:57 PM CDT): [...] TDAP, Zoster recommended RTC annually for f/u Acute cystitis without hematuria 12/21/2017 01/30/2018 Encounters Date Type Department Care Team Description 06/20/2025 Results Follow-Up [facility] [address] [place] [address] Washington Mancia MD Hepatitis C antibody Blood, Hepatitis B Surface Antigen Blood, Hepatitis B surface antibody (immune status) Blood, Additional followed-up results: 2 06/19/2025 11:10 AM CDT Lab [facility] [address] [place] [address] Annual visit for general adult medical examination with abnormal findings; Need for hepatitis C screening test; Need for hepatitis B screening test; Elevated AST (SGOT) 06/19/2025 10:00 AM CDT Office Visit [facility] [address] [place] [address] Washington Mancia MD Annual visit for general adult medical examination with abnormal findings (Primary Dx); Mixed hyperlipidemia; Class 1 obesity due to excess calories without serious comorbidity with body mass index (BMI) of 34.0 to 34.9 in adult; History of breast cancer in female; Elevated AST (SGOT); Need for hepatitis B screening test; Need for hepatitis C screening test 06/05/2025 Orders Only [facility] [address] [place] [address] Scanning, Provider from Last 3 Months Immunizations Immunization Administration Dates Next Due Influenza, Trivalent, IM (MDV) 08/08/2015,2011 Influenza, Unspecified 09/13/2017,07/31/2016 Surgical History Surgery Date Site/Laterality Comments TONSILLECTOMY 10/31/2002 - 10/30/2003 Tonsillectomy BREAST LUMPECTOMY 10/31/2001 - 10/30/2002 Right REDUCTION MAMMAPLASTY 08/31/2016 - 09/29/2016 Left DNA STOOL 01/13/2018 N/A Negative MASTECTOMY COMPLETE / SIMPLE W/ SENTINEL NODE BIOPSY 02/27/2025 [facility], with implant. [place] node negative. MASTECTOMY COMPLETE / SIMPLE 02/27/2025 [facility] Medical History Medical History Date Comments Arthritis Arthritis Irritable bowel syndrome Irritab le bowel disease History of radiation therapy Malignant neoplasm of male breast (HCC) Cancer, breast Breast cancer (HCC) 2001 right Annual physical exam 05/11/2022 Dr. Bearden . 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 Gender Identity Not on file Sexual Orientation Not on file Obstetrics History Para Term AB IAB SAB Ectopic Multiple Livin g Live Births 2 2 2 Date Outcome GA Total Labor Labor/2nd/3rd Weight Sex Type Anes PTL Ashlie A1 A5 Name Clin Term Term Last Filed Vital Signs Vital Sign Reading Time Taken Comments Blood Pressure 110/82 06/19/2025 10:00 AM CDT Pulse 101 06/19/2025 10:00 AM CDT Temperature 36.7 C (98 F) 06/19/2025 10:00 AM CDT Respiratory Rate 16 06/19/2025 10:00 AM CDT Oxygen Saturation 98% 06/19/2025 10:00 AM CDT Inhaled Oxygen Concentration - - Weight 84.6 kg (186 lb 9.6 oz) 06/19/2025 10:00 AM CDT Height 157.5 cm (5' 2.01) 06/19/2025 10:00 AM C DT Body Mass Index 34.12 06/19/2025 10:00 AM CDT Plan of Treatment Health Maintenance Due Date Last Done Comments DTaP/Tdap/Td Vaccine (1 - Tdap) 1976 Hepatitis B Screening 1983 Pneumococcal vaccine <65 (1 of 2 - PCV) 1984 Zoster Vaccine (1 of 2) 1984 Cervical Cancer Screening 06/19/2018 06/19/2017 Breast Cancer Screening-Mammogram 01/12/2019 018, 03/09/2016 Influenza Vaccine (#1) 07/01/2025201 7, 07/31/2016, 08/08/2015, Additional history exists Depression Screening 06/19/2026 06/19/2025, 06/28/2023, 05/11/2022, Additional history exists Regular Well Visit/Exam 18-64 06/19/2026, 06/28/2023, 05/11/2022, Additional history exists Colon Cancer Screening-Colonoscopy 01/13/2028 01/12/2018 Colon Cancer Screening-CT Colonography Discontinued 01/12/2018 Colon Cancer Screening-Sigmoidoscopy Discontinued 01/12/2018 Colon Cancer Screening-DNA Stool Discontinued 07/30/20 23, 01/12/2018 Colon Cancer Screening-FIT Discontinued 07/30/2023, Hepatitis C Screening Completed 06/19/2025 Procedures Procedure Name Priority Date/Time Associated Diagnosis Comments HEPATIC FUNCTION PANEL Routine 06/19/2025 10:56 AM CDT Annual visit for general adult medical examination with abnormal findings Elevated AST (SGOT) HEPATITIS B CORE ANTIBODY, TOTAL Routine 06/19/2025 10:56 AM CDT Annual visit for general adult medical examination with abnormal findings Need for hepatitis B screening test HEPATITIS B SURFACE ANTIBODY (IMMUNE STATUS) Routine 06/19/2025 10:56 AM CDT Annual visit for general adult medical examination with abnormal findings Need for hepatitis B screening test HEPATITIS B SURFACE ANTIGEN Routine 06/19/2025 10:56 AM CDT Annual visit for general adult medical examination with abnormal findings Need for hepatitis B screening test HEPATITIS C ANTIBODY Routine 06/19/2025 10:56 AM CDT Annual visit for general adult medical examination with abnormal findings Need for hepatitis C screening test SCAN - LABS 06/05/2025 STOOL DNA COLOGUARD Routine 07/30/2023 8:50 AM CDT Colon cancer screening SCREENING MAMMOGRAM BILATERAL W HERBERT Schedule Routine, Read Routine (OP Routine) 01/12/2018 1:35 PM CDT Screening breast examination HM COLONOSCOPY Routine 01/12/2018 HM PAP SMEAR WITH HPV Routine 06/19/2017 from Last 3 Months or Most Recently Relevant to Health Maintenance Results * Hepatitis C antibody Blood (06/19/2025 10:56 AM CDT) Hep C Ab Nonreactive Nonreactive Comment: Interpretive Data Nonreactive: Antibodies to HCV not detected. Does NOT exclude the possibility of recent exposure to HCV. Equivocal: Equivocal for HCV antibodies. Supplemental molecular testing will be automatically performed to determine infection status in accordance with current CDC screening recommendations. Reactive: Positive for HCV antibodies. This may represent current or past HCV infection. Supplemental molecular testing will be automatically performed to determine current infection status in accordance with current CDC screening recommendations. Interpretive data was last revised on 2020. Testing performed by: [facility], [address] [place] [address], [place]., [address] Blood 06/19/2025 10:5 6 AM CDT 06/19/2025 5:51 PM CDT Washington Mancia MD LAB MICROBIOLOGY - GENERAL OR DERABLES Final Result [facility] [address] [facility] Department [place] [address] * Hepatitis B core antibody, total Blood (06/19/2025 10:56 AM CDT) Hep B core IgG/IgM Nonreactive Nonreactive Comment:Testing performed by : [facility], [address] [place] [address], [place]., [address] Blood 06/19/2025 10:5 6 AM CDT 06/20/2025 10:55 AM CDT Washington Mancia MD LAB MICROBIOLOGY - GENERAL OR DERABLES Final Result Performing Organization Address [facility] Co de Phone Number [facility] [address] [facility] [email or web address] [address] * Hepatitis B surface antibody (immune status) Blood (06/19/2025 10:56 AM CDT) HBsAb (immune status) Reactive Comment: Interpretive Data Nonreactive: This result is consistent with a lack of immunity to Hepatitis B Virus when used in the setting of routine screening. Equivocal: The immune status of the individual should be further assessed, if appropriate, after consideration of clinical status, risk factors, and additional diagnostic information. Reactive: This result is consistent with immunity to Hepatitis B Virus when used in the setting of routine screening. Current interpretive data was last revised on 20. Testing performed by: [address] [address] HBsAb (immune status) index 985.0 mIUnits/m L [facility] Comment:Testing performed by : [address] [address] Blood 06/19/2025 10:5 6 AM CDT 06/19/2025 5:51 PM CDT Washington Mancia MD LAB MICROBIOLOGY - GENERAL OR DERABLES Final Result Performing Organization Address [facility] Co de Phone Number [facility] [address] [facility] [email or web address] [address] * Hepatitis B Surface Antigen Blood (06/19/2025 10:56 AM CDT) HepBsAg Nonreactive Nonreactive Comment:Testing performed by : [address] [address] Blood 06/19/2025 10:5 6 AM CDT 06/19/2025 5:51 PM CDT Washington Mancia MD LAB MICROBIOLOGY - GENERAL OR DERABLES Final Result RIGOBERTO Pardo [facility] Department [email or web address] [address] * Hepatic function panel (06/19/2025 10:56 AM CDT) Bilirubin, total 0.3 0.1 - 1.2 mg/dL Comment:Testing performed by : [address] [address] Bilirubin, direct 0.1 0.1 - 0.3 mg/dL [facility] Comment:Testing performed by : [address] [address] Protein, pl 6.5 6.5 - 8.5 g/dL [facility] Comment:Testing performed by : [address], [address] Albumin 4.2 3.5 - 5.0 g/dL [facility] Comment:Testing performed by : [address] [address] Alk phos 55 40 - 130 Units/L [facility] Comment:Testing performed by : [address], [address] ALT 23 7 - 45 Units/L [facility] Comment:Testing performed by : [address], [address] AST 30 10 - 45 Units/L [facility] Comment:Testing performed by : [address], [address] Blood 06/19/2025 10:5 6 AM CDT 06/19/2025 5:51 PM CDT Washington Mancia MD LAB BLOOD ORDERABLES Final Re sult RIGOBERTO Pardo [facility] Department [place] [address] * SCAN - LABS (06/05/2025) Provider Scanning Final Result * Stool DNA - Cologuard (07/30/2023 8:50 AM CDT) Stool DNA - Cologuard Negative Negative [facility] (CLIA #:[id number]) Comment: NEGATIVE TEST RESULT. A negative Cologuard [...] (Jayla Bennett al, N Engl J Med 2014;370(14):8476-8445) The normal value (reference range) for this assay is negative. COLOGUARD RE-SCREENING RECOMMENDATION: Periodic colorectal cancer screening is an important part of preventive healthcare for asymptomatic individuals at average risk for colorectal cancer. Following a negative Cologuard result, the [place] [employer] Society and U.S. Multi-Society Task Force screening guidelines recommend a Cologuard re-screening interval of 3 years. References: [place] [employer] Guideline for Colorectal Cancer Screening: https://www.cancer.org/cancer/gsfed-tqngnl-ugydaw/sdvflbolh-wreilitjf-jxnbgwx/ac s-rec ommendations.html.; Christiano DK, Kade CR, Kami GutierrezK, Colorectal Cancer Screening: Recommendations for Physicians and Patients from the U.S. Multi-Society Task Force on Colorectal Cancer Screening , Am J Gastroenterology 2017; 112:4153-9500. TEST DESCRIPTION: Composite algorithmic analysis of stool [...] (Jayla Bennett al, N Engl J Med 2014;370(14):7577-8154.) Cologuard may produce a false negative or false positive result (no colorectal cancer or precancerous polyp present at colonoscopy follow up). A negative Cologuard test result does not guarantee the absence of CRC or advanced adenoma (pre-cancer). The current Cologuard screening interval is every 3 years. ([place] [employer] Society and U.S. Multi-Society Task Force). Cologuard performance data in a 10,000 patient pivotal study using colonoscopy as the reference method can be accessed at the following location: www.Bio.uberlife/results. Additional description of the Cologuard test process, warnings and precautions can be found at www.cologuard.com. Stool 07/30/2023 8:50 AM CDT 08/01/2023 4:12 AM CDT Anthony Bearden MD LAB BODY FLUIDS AND STOOLS O RDERABLES Final Result [facility] (CLIA #:[id number]) [place] [address] * Screening Mammogram Bilateral W Herbret (01/12/2018 1:35 PM CDT) Anatomical Region Laterality [...] * COLONOSCOPY (01/12/2018) Colonoscopy Normal Historical Provider MD HEALTH MAINTENANCE Final Result * PAP SMEAR WITH HPV (06/19/2017) Pap smear Normal Historical Provider MD HEALTH MAINTENANCE Final Result from Last 3 Months or Most Recently Relevant to Health Maintenance Insurance [facility] [employer] [employer] GENERIC Care Teams Technical Support Intern Relationship Specialty Start Date End Date Washington Mancia MD [address] [place] [address] PCP - General Internal Medicine 06/19/25 Tanya Colin, PT Physical Therapist Physical Therapy 05/09/18 Katty Dowell, MONICA Physical Therapist Physical Therapy 05/15/18 Rg Potter MD [address] [place] [address] Referring Physician Hematology 06/18/25 Alea Luna, EMAIL ADMINISTRATOR [address] [facility] [address] [place], [place] [id number] Nurse Practitioner Gynecology 04/30/15 Lilibeth Al MD [address] [facility] [address] [place], [place] [phone] General Surgery 02/27/25 Jayne Yeung MD [address] [facility] [address] [place], [place] [id number] Consulting Physician Plastic Surgery 02/27/25
--- OUTSIDE RECORDS SUMMARY | 2025-09-05 16:15 | XMS_ITS | Encounter Summary ---
Author Organization [facility] Healthcare Address [address] [place] [address] Care Team Providers Care Mva Reactor Operator Name Role Phone Tanya Colin PT Unavailable Unavailable Katty Dowell PT Unavailable Unavailable Jania Johnson MD Primary Care Provider [phone] Rg Potter MD Unavailable [phone] Alea Luna NP Unavailable Lilibeth Al MD Unavailable [phone] Jayne Yeung MD Unavailable [phone] Washington Mancia MD Primary Care Provider [phone] Encounter Details Date Type Department Care Team (Late st Contact Info) Description 06/05/2025 Orders Only [facility] [address] [place] [address] Scanning, Provider Social History Tobacco Use Types Packs/Day Years [...] on file 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 Gender Identity Not on file Sexual Orientation Not on file documented as of this encounter Plan of Treatment Not on file documented as of this encounter Procedures Procedure Name Priority Date/Time Associated Diagnosis Comments SCAN - LABS 06/05/2025 documented in this encounter Results * SCAN - LABS (06/05/2025) us Provider Scanning Final Result documented in this encounter Visit Diagnoses Not on filedocumented in this encounter Care Teams Mva Reactor Operator Relationship Specialty Start Date End Date Jania Johnson MD PCP - General Family Practice 05/11/22 06/18/25 Washington Mancia MD [address] [place] [address] PCP - General Internal Medicine 06/19/25 Tanya Colin, PT Physical Therapist Physical Therapy 05/09/18 Katty Dowell, PT Physical Therapist Physical Therapy 05/15/18 Rg Potter MD [address] [place] [address] Referring Physician Hematology 06/18/25 Alea Luna, NAUTICAL INSTRUMENT MECHANIC [address] [place], [place] [phone] Nurse Practitioner Gynecology 04/30/15 Lilibeth Al MD [address] [facility] [address] [place], [place] [phone] General Surgery 02/27/25 Jayne Yeung MD [address] [address] Consulting Physician Plastic Surgery 02/27/25 documented as of this encounter
--- OUTSIDE RECORDS SUMMARY | 2025-09-05 16:15 | XMS_ITS | Clinical Summary ---
Author Organization [facility] Address [address] [place] [address] Phone Care Team Providers Care Kiln Packer Name Role Phone Ruiz Krishna MD Primary Care Provider [phone] Family History Medical History Relation Name Comments [...] 2015 Mammogram 03/09/2017 03/09/2016 Influenza Immunization (#1) 2025 SARS-COV-2 Immunization (1 - season) 2025 Respiratory Syncytial Virus (RSV) Immunization (Adult) [...] 0.07 <1 S/CO 02/10/2017 11:19 PM CDT [facility] Comment: Signal/Cutoff ratio < 0.79 is Nondetected Signal/Cutoff ratio 0.80-0.99 is Grayzone Signal/Cutoff ratio > 0.99 is Detected Supplemental assays are recommended if signal/cutoff ratio is >/=1.00. Signal/cutoff ratio result >/= 5.00 is 97% predictive of positivity for recombinant immunoblot assay (RIBA) and will be reported to the [place] Department of Public Health as required. Blood specimen (specimen) Venipuncture / Unknown 02/10/2017 11:11 AM CDT 02/10/2017 2:18 PM CDT us Ruiz Krishna MD CHEMISTRY ORDERABLES Final Resul t [facility] [address] [place] [address], [place] * QUINN SCREENING BILATERAL DIGITAL W [...] is made to exams dated: 12/16/2014, 09/21/2013 [facility], and 02/22/[address] [facility]. BREAST TISSUE:There are scattered fibroglandular densities [...] exam. Electronically signed by: Sammy lancaster/mervat:03/09/2016 13:34:43 Rn On Site: Margaret VANEGAS)(Mao), [facility] letter sent: Normal Exam Reading location: [facility] BI-RADS: 1 Negative Procedure Note Sammy [...] is made to exams dated: 12/16/2014, 09/21/2013 [facility], and 02/22/[address] [facility]. BREAST TISSUE:There are scattered fibroglandular densities [...] exam. Electronically signed by: Sammy lancaster/mervat:03/09/2016 13:34:43 Rn On Site: Margaret YUNG(Nicole)(M), [facility] letter sent: Normal Exam Reading location: [facility] BI-RADS: 1 Negative us Sammy Carballo MD IMG MAMMO ORDERABLES Fin al Result from Last 3 Months or Most Recently Relevant to Health Maintenance Care Teams Kiln Packer Relationship Specialty Start Date End Date Ruiz Krishna MD [address] [place] [address] PCP - General Internal Medicine 02/10/16
== END 2025-09-05 08:52 | disposition home or self-care (01) ==
PROVIDERS: PCP Internal Medicine Infectious Disease; Visit Provider Plastic Surgery
PROC: (CPT 19380; principal; 2025-09-05 07:30)
DX: N65.0 Deformity of reconstructed breast (principal); Z85.3 Personal history of malignant neoplasm of breast; Z90.13 Acquired absence of bilateral breasts and nipples
CPT/HCPCS: 19380

== ENCOUNTER 2025-09-05 08:51 | Outpatient (NON) | payer OTHER, SELFPAY ==
--- NOTE | 2025-09-05 | S_PTH ---
PATIENT: Ariana Colvin LOC: [facility] #:[id number] AGE/SX: 59/F ROOM: RE09/05/[address]: Jayne Yeung MD : 1965 BED: DIS: 09/05/2025 SPEC #: [id number] RECD: 09/06/25 10:15 STATUS: ALETA REQ #: [id number] GERBER: 09/05/25 00:[address]: Jayne Yeung DEPT: [facility] Surgical RECD BY: Cheryl White ENTERED: 09/06/25 10:17 SP TYPE: Surgical OTHR DR: Washington ManciaMD Tissues: A - Breast Tissue B - Breast Tissue Procedures: Hematoxylin and Eosin Stain Gross and Microscopic Level 4
--- OUTSIDE RECORDS SUMMARY | 2025-09-06 09:23 | XMS_ITS | Clinical Summary ---
Author Organization [facility] Address [address] [place] [address] Phone Care Team Providers Care Glazing Department Supervisor Name Role Phone Ruiz Krishna MD Primary Care Provider [phone] Family History Medical History Relation Name Comments [...] <1 S/CO 02/10/2017 11:19 PM CDT [facility] Comment: Signal/Cutoff ratio < 0.79 is Nondetected Signal/Cutoff ratio 0.80-0.99 is Grayzone Signal/Cutoff ratio > 0.99 is Detected Supplemental assays are recommended if signal/cutoff ratio is >/=1.00. Signal/cutoff ratio result >/= 5.00 is 97% predictive of positivity for recombinant immunoblot assay (RIBA) and will be reported to the [place] Department of Public Health as required. Blood specimen (specimen) Venipuncture / Unknown 02/10/2017 11:11 AM CDT 02/10/2017 2:18 PM CDT us Ruiz Krishna MD CHEMISTRY ORDERABLES Final Resul t [facility] [address] [place] [address], [place] * QUINN SCREENING BILATERAL DIGITAL W [...] is made to exams dated: 12/16/2014, 09/21/2013 [facility], and 02/22/2011 [facility]. BREAST TISSUE:There are scattered fibroglandular densities in [...] exam. Electronically signed by: Sammy lancaster/mervat:03/09/2016 13:34:43 Hvac Tech: Margaret VANEGAS)(Mao), [facility] letter sent: Normal Exam Reading location: [facility] BI-RADS: 1 Negative Procedure Note Sammy Carballo [...] is made to exams dated: 12/16/2014, 09/21/2013 [facility], and 02/22/2011 [facility]. BREAST TISSUE:There are scattered fibroglandular densities in [...] exam. Electronically signed by: Sammy lancaster/mervat:03/09/2016 13:34:43 Hvac Tech: Margaret YUNG(Nicole)(M), [facility] letter sent: Normal Exam Reading location: [facility] BI-RADS: 1 Negative us Sammy Carballo MD IMG MAMMO ORDERABLES Fin al Result from Last 3 Months or Most Recently Relevant to Health Maintenance Care Teams Glazing Department Supervisor Relationship Specialty Start Date End Date Ruiz Krishna MD [address] [place] [address] PCP - General Internal Medicine 02/10/16
--- OUTSIDE RECORDS SUMMARY | 2025-09-06 09:23 | XMS_ITS | Clinical Summary ---
Author Organization [facility] Medical Office Building B Address [address] [place] [address] Care Team Providers Care Traffic Manager Name Role Phone Tanya Colin PT Unavailable Unavailable Katty Dowell PT Unavailable Unavailable Rg Potter MD Unavailable [phone] Alea Luna NP Unavailable Lilibeth Al MD Unavailable [phone] Jayne Yeung MD Unavailable [phone] Washington Mancia MD Primary Care Provider [phone] Allergies Active Allergy Reactions Criticality Noted Date [...] HPI/AP. 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 Discussed [...] Department Care Team Description 06/20/2025 Results Follow-Up [facility] [address] [place] [address] Washington Mancia MD Hepatitis C antibody Blood, Hepatitis B Surface Antigen Blood, Hepatitis B surface antibody (immune status) Blood, Additional followed-up results: 2 06/19/2025 11:10 AM CDT Lab [facility] [address] [place] [address] Annual visit for general adult medical examination with abnormal findings; Need for hepatitis C screening test; Need for hepatitis B screening test; Elevated AST (SGOT) 06/19/2025 10:00 AM CDT Office Visit [facility] [address] [place] [address] Washington Mancia MD Annual visit for general adult medical examination with abnormal findings (Primary Dx); Mixed hyperlipidemia; Class 1 obesity due to excess calories without serious comorbidity with body mass index (BMI) of 34.0 to 34.9 in adult; History of breast cancer in female; Elevated AST (SGOT); Need for hepatitis B screening test; Need for hepatitis C screening test from Last 3 Months Immunizations Immunization Administration Dates Next Due Influenza, Trivalent, IM (MDV) 08/08/2015,2011 Influenza, Unspecified 09/13/2017,07/31/2016 Surgical History Surgery Date Site/Laterality Comments TONSILLECTOMY 10/31/2002 - 10/30/2003 Tonsillectomy BREAST LUMPECTOMY 10/31/2001 - 10/30/2002 Right REDUCTION MAMMAPLASTY 08/31/2016 - 09/29/2016 Left DNA STOOL 01/13/2018 N/A Negative MASTECTOMY COMPLETE / SIMPLE W/ SENTINEL NODE BIOPSY 02/27/2025 [facility], with implant. [place] node negative. 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 Testing performed by: [facility], [address] [place] [address]., [address] Blood 06/19/2025 10:5 6 AM CDT 06/19/2025 5:51 PM CDT Washington Mancia MD LAB MICROBIOLOGY - GENERAL OR DERABLES Final Result Performing Organization Address [facility] Co de Phone Number [address] [place] [address] * Hepatitis B core antibody, total Blood (06/19/2025 10:56 AM CDT) Hep B core IgG/IgM Nonreactive Nonreactive Comment:Testing performed by : [facility], [address] [place] [address], [place]., [address] Blood 06/19/2025 10:5 6 AM CDT 06/20/2025 10:55 AM CDT Washington Mancia MD LAB MICROBIOLOGY - GENERAL OR DERABLES Final Result RIGOBERTO [address] [facility] [place] [address] * Hepatitis B surface antibody (immune status) Blood (06/19/2025 10:56 AM CDT) Pathologist [facility] HBsAb (immune status) Reactive Comment: Interpretive Data [...] last revised on 20. Testing performed by: [address] [address] HBsAb (immune status) index 985.0 mIUnits/m L NELYKATHERINE Comment:Testing performed by : [address] [address] Blood 06/19/2025 10:5 6 AM CDT 06/19/2025 5:51 PM CDT Washington Mancia MD LAB MICROBIOLOGY - GENERAL OR DERABLES Final Result Performing Organization Address [facility] de Phone Number RIGOBERTO [facility] [facility] [place] [address] * Hepatitis B Surface Antigen Blood (06/19/2025 10:56 AM CDT) Pathologist [facility] HepBsAg Nonreactive Nonreactive Comment:Testing performed by : [address] [address] Blood 06/19/2025 10:5 6 AM CDT 06/19/2025 5:51 PM CDT Washington Macnia MD LAB MICROBIOLOGY - GENERAL OR DERABLES Final Result Performing Organization Address City/[facility] Co de Phone Number RIGOBERTO [address] [facility] [place] [address] * Hepatic function panel (06/19/2025 10:56 AM CDT) [facility] Bilirubin, total 0.3 0.1 - 1.2 mg/dL Comment:Testing performed by : [facility], [address] [place] [address]., [address] Bilirubin, direct 0.1 0.1 - 0.3 mg/dL CERNER Comment:Testing performed by : [address], [address] Protein, pl 6.5 6.5 - 8.5 g/dL CERNER Comment:Testing performed by : [facility], [address] [place] [address], [address] Albumin 4.2 3.5 - 5.0 g/dL CERNER Comment:Testing performed by : [address], [address] Alk phos 55 40 - 130 Units/L CERNER CH Comment:Testing performed by : [address], [address] ALT 23 7 - 45 Units/L CERNER Comment:Testing performed by : [address], [address] AST 30 10 - 45 Units/L CERNER Comment:Testing performed by : [address], [address] Blood 06/19/2025 10:5 6 AM CDT 06/19/2025 5:51 PM CDT Washington Mancia MD LAB BLOOD ORDERABLES Final Re sult [address] Department [place] [address] * Stool DNA - Cologuard (07/30/2023 8:50 AM CDT) [facility] Stool DNA - Cologuard Negative Negative [employer] (CLIA #:[id number]) Comment: NEGATIVE TEST RESULT. A negative Cologuard [...] Jurado et al, N Engl J Med 2014;370(14):8469-0541) The normal value (reference range) for this assay is negative. COLOGUARD RE-SCREENING RECOMMENDATION: Periodic colorectal cancer screening is an important part of preventive healthcare for asymptomatic individuals at average risk for colorectal cancer. Following a negative Cologuard result, the British Cancer Society and U.S. Multi-Society Task Force screening guidelines recommend a Cologuard re-screening interval of 3 years. References: [place] Cancer Society Guideline for Colorectal Cancer Screening: https://www.cancer.org/cancer/ikqxa-btlykw-pywkkz/jkzhkcvjn-eunfibmmp-fzkdbca/ac s-rec ommendations.html.; Christiano DK, Kade CR, Kami GutierrezK, Colorectal Cancer Screening: Recommendations for Physicians and Patients from the U.S. Multi-Society Task Force on Colorectal Cancer Screening , Am J Gastroenterology 2017; 112:5003-5333. TEST DESCRIPTION: Composite algorithmic analysis of stool [...] (Jayla Bennett al, N Engl J Med 2014;370(14):0326-6321.) Cologuard may produce a false negative or false positive result (no colorectal cancer or precancerous polyp present at colonoscopy follow up). A negative Cologuard test result does not guarantee the absence of CRC or advanced adenoma (pre-cancer). The current Cologuard screening interval is every 3 years. (British Cancer Society and U.S. Multi-Society Task Force). Cologuard performance data in a 10,000 patient pivotal study using colonoscopy as the reference method can be accessed at the following location: www.[employer]/results. Additional description of the Cologuard test process, warnings and precautions can be found at www.[employer].iHireHelp. Stool 07/30/2023 8:50 AM CDT 08/01/2023 4:12 AM CDT us Anthony Bearden MD LAB BODY FLUIDS AND STOOLS O RDERABLES Final Result [employer] (CLIA #:[id number]) [address] [place] [address] * Screening Mammogram Bilateral W Herbert (01/12/2018 [...] A few benign calcifications are noted. Mohini Prado Jr DO IMG MAMMO PROCEDURES Final Result * COLONOSCOPY (01/12/2018) Colonoscopy Normal Historical Provider MD HEALTH MAINTENANCE Final Result * PAP SMEAR WITH HPV (06/19/2017) Pap smear Normal Historical Provider HEALTH MAINTENANCE Final Result from Last 3 Months or Most Recently Relevant to Health Maintenance Insurance [facility] CHOICE PLUS [facility] HMO/PPO Address: [facility] [address] [place] [address] [facility] CHOICE PLUS [facility] HMO/PPO Address: [address] [address] [place] [address] WORKERS COMPENSATION GENERIC Care Teams Traffic Manager Relationship Specialty Start Date End Date Washington Mancia MD [address] [place] [address] PCP - General Internal Medicine 06/19/25 Tanya Colin, PT Physical Therapist Physical Therapy 05/09/18 Katty Dowell, PT Physical Therapist Physical Therapy 05/15/18 Rg Potter MD [address] [place] [address] Referring Physician Hematology 06/18/25 Alea Luna, GRAZING AIDE [address] [place] [address] Nurse Practitioner Gynecology 04/30/15 Lilibeth Al MD [address] [place] [address] General Surgery 02/27/25 Jayne Yeung MD [address] [facility] [address] [place], [place] [address] Consulting Physician Plastic Surgery 02/27/25
--- OUTSIDE RECORDS SUMMARY | 2025-09-06 09:23 | XMS_ITS | Encounter Summary ---
Author Organization [facility] Address [address] [place] [address] Care Team Providers Care Drywall Worker Name Role Phone Washington Mancia MD Primary Care Provider Unavail able Encounter Details Date Type Department Care Team (Latest Contact Info) Description 12/11/2008 Outpatient Historical [facility] Radiation Oncology [place] [address] [place] [address] Xiomara Guerra MD NO ADDRESS ON FILE Malignant Neoplasm of Upper-Inner Quadrant of Female Breast (CMS/HCC) Social History Tobacco Use Types Packs/Day Years Used Date Smoking Tobacco: Never Assessed Comments Unknown Sex and Gender Information Value Date Recorded Sex Assigned at Not on file Legal Sex Female 5:41 AM BULB INSPECTOR Gender Identity Not on file Sexual Orientation Not on file documented as of this encounter Plan of Treatment Upcoming Encounters Date Type Department Care Team (Late st Contact Info) Description 10/17/2025 3:45 PM BULB INSPECTOR Office Visit [facility] Oncology and Hematology - Colin [address] [facility] [address] [place] [address] Rg Potter MD [address] [facility] [address] [place] [address] documented as of this encounter Visit Diagnoses Diagnosis Malignant neoplasm of upper-inner quadrant of female breast (CMS/HCC) Malignant neoplasm of upper-inner quadrant of female breast documented in this encounter Care Teams Drywall Worker Relationship Specialty Start Date End Date Washington Mancia MD NO ADDRESS ON FILE PCP - General Internal Medicine 06/21/25 documented as of this encounter
--- OUTSIDE RECORDS SUMMARY | 2025-09-06 09:23 | XMS_ITS | Clinical Summary ---
Author Organization [facility] [address] Address [address] [place] [address] Care Team Providers Care Burial Vault Deliverer And Installer Name Role Phone Washington Mancia MD Primary Care Provider Unavail able Allergies Active Allergy Reactions Criticality Noted Date Comments Nickel Rash Low 02/07/2025 Medications cholecalciferol 1,250 mcg (50,000 unit) Capsule Take 50,000 Units by mouth every 7 days. Active calcium as CARBONATE (OS-MYCHAL) 1,250 mg (500 mg elemental) tablet Take 1 Tablet by mouth daily. Active IBUPROFEN ORAL Take 400 mg by mouth Continuous as needed for Pain. Active tamoxifen (NOLVADEX) 20 mg tablet Take 1 Tablet (20 mg) by mouth daily. 90 Tablet 3 Active multivitamin (DAILY-LUIS MIGUEL) tablet Take 1 Tablet by mouth daily. Active Active Problems No known active problems Encounters Date Type Department Care Team Description 08/28/2025 External Device Data STL ABSTRACTION Provider, Abstract 08/27/2025 External Device Data ST[place] ABSTRACTION Provider, Abstract 07/16/2025 External Device Data [place] ABSTRACTION Provider, Abstract 06/21/2025 8:45 AM CDT Office Visit [facility] Oncology and Hematology - Colin [address] [place] [address] Rg Potter MD Malignant neoplasm of upper-outer quadrant of left breast in female, estrogen receptor positive (CMS/HCC) (Primary Dx) 06/06/2025 Orders Only [facility] Oncology and Hematology Colin [address] [place] [address] Rg Potter MD from Last [...] on file Legal Sex Female 5:41 AM OPERATIONAL RISK CONSULTANT Gender Identity Not on file Sexual Orientation Not on file Last Filed Vital Signs Vital Sign Reading Time Taken Comments Blood Pressure 139/87 06/21/2025 8:59 AM CDT Pulse 78 06/21/2025 8:59 AM CDT Temperature 36.8 C (98.2 F) 06/21/2025 8:59 AM CDT Respiratory Rate 15 06/21/2025 8:59 AM CDT Oxygen Saturation 97% 06/21/2025 8:59 AM CDT Inhaled Oxygen Concentration - - Weight 83.8 kg (184 lb 12.8 oz) 06/21/2025 8:59 AM CDT Height 157.5 cm (5' 2) 02/07/2025 3:20 PM CDT Body Mass Index 33.8 02/07/2025 3:20 PM CDT Plan of Treatment Upcoming Encounters Date Type Department Care Team (Late st Contact Info) Description 10/17/2025 3:45 PM OPERATIONAL RISK CONSULTANT Office Visit [facility] Oncology and Hematology - Colin [address] [facility] [address] [place] [address] Rg Potter MD [address] [facility] [address] [place] [address] Health Maintenance Due Date Last [...] 03/09/2016, Additional history exists INFLUENZA VACCINE (#1) 2025 08/08/2015, 2011 Procedures [...] Most Recently Relevant to Health Maintenance Insurance [employer] [id number] Care Teams Burial Vault Deliverer And Installer Relationship Specialty Start Date End Date Washington Mancia MD NO ADDRESS ON FILE PCP - General Internal Medicine 06/21/25
--- OUTSIDE RECORDS SUMMARY | 2025-09-06 09:23 | XMS_ITS | Encounter Summary ---
Author Organization [facility] Address [address] [place] [address] Care Team Providers Care Raw Stock Machine Feeder Name Role Phone Washington Mancia MD Primary Care Provider Unavail able Encounter Details Date Type Department Care Team (Latest Contact Info) Description 01/12/2009 Outpatient Historical [facility] Radiation Oncology [place] [address] [place] [address] Xiomara Guerra MD NO ADDRESS ON FILE Malignant Neoplasm of Upper-Inner Quadrant of Female Breast (CMS/HCC) Social History Tobacco Use Types Packs/Day Years Used Date Smoking Tobacco: Never Assessed Comments Unknown Sex and Gender Information Value Date Recorded Sex Assigned at Not on file Legal Sex Female 5:41 AM FAMILY ENGAGEMENT SPECIALIST Gender Identity Not on file Sexual Orientation Not on file documented as of this encounter Plan of Treatment Upcoming Encounters Date Type Department Care Team (Late st Contact Info) Description 10/17/2025 3:45 PM FAMILY ENGAGEMENT SPECIALIST Office Visit [facility] Oncology and Hematology - Colin [address] [facility] [address] [place] [address] Rg Potter MD [address] [facility] [address] [place] [address] documented as of this encounter Visit Diagnoses Diagnosis Malignant neoplasm of upper-inner quadrant of female breast (CMS/HCC) Malignant neoplasm of upper-inner quadrant of female breast documented in this encounter Care Teams Raw Stock Machine Feeder Relationship Specialty Start Date End Date Washington Mancia MD NO ADDRESS ON FILE PCP - General Internal Medicine 06/21/25 documented as of this encounter
--- OUTSIDE RECORDS SUMMARY | 2025-09-06 09:23 | XMS_ITS | Encounter Summary ---
Author Organization [facility] Healthcare Address [address] [place] [address] Care Team Providers Care Design Engineering Manager Name Role Phone Tanya Colin PT Unavailable Unavailable Katty Dowell PT Unavailable Unavailable Jania Johnson MD Primary Care Provider [phone] Rg Potter MD Unavailable [phone] Alea Luna NP Unavailable Lilibeth Al MD Unavailable [phone] Jayne Yeung MD Unavailable [phone] Washington Mancia MD Primary Care Provider [phone] Encounter Details Date Type Department Care Team (Late st Contact Info) Description 06/05/[address] [facility] [address] [place] [address] Scanning, Provider Social History Tobacco [...] on file Legal Sex Female 4:22 PM CVICU RN Gender Identity Not on file Sexual Orientation [...] on filedocumented in this encounter Care Teams Design Engineering Manager Relationship Specialty Start Date End Date Jania Johnson MD PCP - General Family Practice 05/11/22 06/18/25 Washington Mancia MD [address] [place] [address] PCP - General Internal Medicine 06/19/25 Tanya Colin, PT Physical Therapist Physical Therapy 05/09/18 Katty Dowell, PT Physical Therapist Physical Therapy 05/15/18 Rg Potter MD [address] [place] [address] Referring Physician Hematology 06/18/25 Alea Luna, DIRECT MAIL CLERK [address] [place], [place] [address] Nurse Practitioner Gynecology 04/30/15 Lilibeth Al MD [address] [facility] [address] [place], [place] [id number] General Surgery 02/27/25 Jayne Yeung MD [address] [address] Consulting Physician Plastic Surgery 02/27/25 documented as of this encounter
== END 2025-09-05 08:52 | disposition home or self-care (01) ==
LOC: ANHLAB 09-06 08:54
PROVIDERS: PCP Internal Medicine Infectious Disease; Visit Provider Plastic Surgery
DX: Z90.13 Acquired absence of bilateral breasts and nipples (principal)
CPT/HCPCS: 88305

== ENCOUNTER 2025-10-10 13:33 | Outpatient (CLI) | payer OTHER, SELFPAY ==
[2025-10-10 13:56] LABS: Hematocrit 38.5 % (37.0-47.0); Hemoglobin 12.8 g/dL (12.0-15.0); Immature Granulocyte Percent A 0.3 % (0-0.5); Lymphocytes Absolute Auto 3.07 K/mm3 (0.9-3.2); Mean Corpuscular HGB Conc 33.2 g/dl (32-36); Mean Corpuscular Hemoglobin 31.1 pg (26-34); Mean Corpuscular Volume 93.4 fl (80-100); Nucleated Red Blood Cells Absolute Auto 0.000 K/mm3 (0.0-0.012); Nucleated Red Blood Cells Perc 0.0 % (0.0-0.2); Platelet Count Result 230 k/mm3 (150-375); Red Blood Count 4.12 M/mm3 (4.2-5.4); White Blood Count 9.6 K/mm3 (4.5-10.0)
--- OUTSIDE RECORDS SUMMARY | 2025-10-10 16:15 | XMS_ITS | Clinical Summary ---
Author Organization [facility] Medical Office Building B Address [address] [place] [address] Care Team Providers Care Packing Clerk Name Role Phone Tanya Colin PT Unavailable Unavailable Katty Dowell PT Unavailable Unavailable Rg Potter MD Unavailable [phone] Alea Luna NP Unavailable Lilibeth Al MD Unavailable [phone] Jayne Yeung MD Unavailable [phone] Washington Mancia MD Primary Care Provider [phone] Allergies Active Allergy Reactions Criticality Noted Date [...] HPI/AP. Assessment & Plan (12/21/2017 8:48 AM FELT HAT POUNCING OPERATOR HAND): Obesity is improving with lifestyle modifications. Discussed [...] f/u Acute cystitis without hematuria 12/21/2017 01/30/2018 Immunizations Immunization Administration Dates Next Due Influenza, Trivalent, IM (MDV) 08/08/2015,2011 Influenza, Unspecified 09/13/2017,07/31/2016 Surgical History Surgery Date Site/Laterality Comments TONSILLECTOMY 10/31/2002 - 10/30/2003 Tonsillectomy BREAST LUMPECTOMY 10/31/2001 - 10/30/2002 Right REDUCTION MAMMAPLASTY 08/31/2016 - 09/29/2016 Left DNA STOOL 01/13/2018 N/A Negative MASTECTOMY COMPLETE / SIMPLE W/ SENTINEL NODE BIOPSY 02/27/2025 Left [facility], with implant. [place] node negative. MASTECTOMY COMPLETE / SIMPLE 02/27/2025 Right [facility] Medical History Medical History Date Comments Arthritis [...] on file Legal Sex Female 4:22 PM FELT HAT POUNCING OPERATOR HAND Gender Identity Not on file Sexual Orientation [...] Comments DTaP/Tdap/Td Vaccine (1 - Tdap) 1976 Pneumococcal vaccine <65 (1 of 2 - [...] 01/12/2018 Colon Cancer Screening-FIT Discontinued 07/30/2023, Hepatitis B Screening Completed 06/19/2025 Hepatitis C Screening Completed 06/19/2025 Procedures Procedure Name Priority Date/Time Associated Diagnosis Comments HEPATITIS C ANTIBODY Routine 06/19/2025 10:56 AM [...] Testing performed by: [facility], [address] [place] [address]., [address] Blood 06/19/2025 10:5 6 AM CDT 06/19/2025 5:51 PM CDT Washington Mancia MD LAB MICROBIOLOGY - GENERAL OR DERABLES Final Result Performing Organization Address City/State/RUST Co sc Phone Number [facility] [address] [facility] [place] [address] * Stool DNA - Cologuard (07/30/2023 8:50 AM CDT) Stool DNA - Cologuard Negative Negative [employer] (CLIA #:[id number]) Comment: NEGATIVE TEST RESULT. A negative Cologuard [...] (Jayla Bennett al, N Engl J Med 2014;370(14):7074-7141) The normal value (reference range) for this assay is negative. COLOGUARD RE-SCREENING RECOMMENDATION: Periodic colorectal cancer screening is an important part of preventive healthcare for asymptomatic individuals at average risk for colorectal cancer. Following a negative Cologuard result, the [place] Cancer Society and U.S. Multi-Society Task Force screening guidelines recommend a Cologuard re-screening interval of 3 years. References: [place] Cancer Society Guideline for Colorectal Cancer Screening: https://www.cancer.org/cancer/oyise-yioatc-hjbwjp/awilyjlgl-sywxyxenu-rtzeoch/ac s-rec ommendations.html.; Christiano DK, Kade DÍAZ, Kami GutierrezK, Colorectal Cancer Screening: Recommendations for Physicians and Patients from the U.S. Multi-Society Task Force on Colorectal Cancer Screening , Am J Gastroenterology 2017; 112:9699-9439. TEST DESCRIPTION: Composite algorithmic analysis of stool [...] (Jayla Bennett al, N Engl J Med 2014;370(14):0140-5299.) Cologuard may produce a false negative or false positive result (no colorectal cancer or precancerous polyp present at colonoscopy follow up). A negative Cologuard test result does not guarantee the absence of CRC or advanced adenoma (pre-cancer). The current Cologuard screening interval is every 3 years. ([place] Cancer Society and U.S. Multi-Society Task Force). Cologuard performance data in a 10,000 patient pivotal study using colonoscopy as the reference method can be accessed at the following location: www.[employer].com/results. Additional description of the Cologuard test process, warnings and precautions can be found at www.cologuard.com. Stool 07/30/2023 8:50 AM CDT 08/01/2023 4:12 AM CDT Anthony Bearden MD LAB BODY FLUIDS AND STOOLS O RDERABLES Final Result [facility] (CLIA #:[id number]) [address] [place] [address] * Screening Mammogram Bilateral W Herbert (01/12/2018 [...] Most Recently Relevant to Health Maintenance Insurance [facility] CHOICE PLUS [facility] CHOICE PLUS WORKERS COMPENSATION GENERIC Care Teams Packing Clerk Relationship Specialty Start Date End Date Washington Mancia MD [address] [place] [address] PCP - General Internal Medicine 06/19/25 Tanya Colin, PT Physical Therapist Physical Therapy 05/09/18 Katty Dowell, PT Physical Therapist Physical Therapy 05/15/18 Rg Potter MD [address] [place] [address] Referring Physician Hematology 06/18/25 Alea Luna, PILE DRIVER OPERATOR [address] [place] [address] Nurse Practitioner Gynecology 04/30/15 Lilibeth Al MD [address] [facility] [address] [place], [place] [id number] General Surgery 02/27/25 Jayne Yeung MD [address] [address] Consulting Physician Plastic Surgery 02/27/25
--- OUTSIDE RECORDS SUMMARY | 2025-10-10 16:15 | XMS_ITS | Encounter Summary ---
Author Organization [facility] Address [address] [place] [address] Care Team Providers Care Python Engineer Name Role Phone Washington Mancia MD Primary Care Provider Unavail able Encounter Details Date Type Department Care Team (Late st Contact Info) Description 10/08/2025 External Device Data ST[place] ABSTRACTION Provider, Abstract NO ADDRESS ON FILE Social History Tobacco Use Types Packs/Day Years Used Date Smoking Tobacco: Never Smokeless Tobacco: Never Alcohol Use Standard Drinks/Week Comments Yes 0 (1 standard drink = 0.6 oz pur e alcohol) Occasionally Comments Unknown Sex and Gender Information Value Date Recorded Sex Assigned at Not on file Legal Sex Female 5:41 AM EYEGLASS ASSEMBLER Gender Identity Not on file Sexual Orientation Not on file documented as of this encounter Plan of Treatment Upcoming Encounters Date Type Department Care Team (Late st Contact Info) Description 10/17/2025 3:45 PM EYEGLASS ASSEMBLER Office Visit [facility] Oncology and Hematology - [place] [address] [place] [address] [address] [place] [address] Rg Potter MD [address] [facility] [address] [place] [address] documented as of this encounter Visit Diagnoses Not on filedocumented in this encounter Care Teams Python Engineer Relationship Specialty Start Date End Date Washington Mancia MD NO ADDRESS ON FILE PCP - General Internal Medicine 06/21/25 documented as of this encounter
--- OUTSIDE RECORDS SUMMARY | 2025-10-10 16:16 | XMS_ITS | Encounter Summary ---
Author Organization [facility] Address [address] [place] [address] Care Team Providers Care Discharge Specialist Name Role Phone Washington Mancia MD Primary Care Provider Unavail able Encounter Details Date Type Department Care Team (Latest Contact Info) Description 12/11/[address] 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 Oncology and Hematology - [place] [address] [facility] 200 [place] [address] Rg Potter MD [address] [facility] [address] [place] [address] documented as of this encounter Visit Diagnoses Diagnosis Malignant neoplasm of upper-inner quadrant of female breast (CMS/HCC) Malignant neoplasm of upper-inner quadrant of female breast documented in this encounter Care Teams Discharge Specialist Relationship Specialty Start Date End Date Washington Mancia MD NO ADDRESS ON FILE PCP - General Internal Medicine 06/21/25 documented as of this encounter
--- OUTSIDE RECORDS SUMMARY | 2025-10-10 16:16 | XMS_ITS | Clinical Summary ---
Author Organization [facility] [address] Address [address] [place] [address] Care Team Providers Care Bit Sharpener Operator Name Role Phone Washington Mancia MD Primary [...] Encounters Date Type Department Care Team Description 10/08/2025 External Device Data STL ABSTRACTION Provider, Abstract 09/17/2025 External Device Data STL ABSTRACTION Provider, Abstract 08/28/2025 External Device Data STL ABSTRACTION Provider, [...] on file Legal Sex Female 5:41 AM CHAIRMAN Gender Identity Not on file Sexual Orientation [...] st Contact Info) Description 10/17/2025 3:45 PM CHAIRMAN Office Visit [facility] Oncology and Hematology - [place] [address] [facility] 200 [place] [address] Rg Potter MD [address] [facility] [address] [place] [address] Health Maintenance Due Date Last [...] exists INFLUENZA VACCINE (#1) 2025 08/08/2015, 2011 Preventative Visit- Commercial Completed 0 06/19/2025, 06/28/2023, 05/11/2022, Additional history exists Procedures Procedure Name Priority Date/Time Associated Diagnosis Comments MAMMO SCREEN BILAT W OR WO CAD Routine 01/27/2010 from Last 3 Months or Most Recently Relevant to Health Maintenance Results * MAMMO DIGITAL SCREEN BILAT (01/27/2010) Anatomical Region Laterality Modality Breast Bilateral Other us Abstract Provider MAMMO ORDERABLES Final Result from Last 3 Months or Most Recently Relevant to Health Maintenance Insurance Care Teams Bit Sharpener Operator Relationship Specialty Start Date End Date Washington Mancia MD NO ADDRESS ON FILE PCP - General Internal Medicine 06/21/25
--- OUTSIDE RECORDS SUMMARY | 2025-10-10 16:16 | XMS_ITS | Encounter Summary ---
Author Organization [facility] Address [address] [place] [address] Care Team Providers Care Land Title Examiner Name Role Phone Tanya Colin PT Unavailable Unavailable Katty Dowell PT Unavailable Unavailable Jania Johnson MD Primary Care Provider [phone] Rg Potter MD Unavailable [phone] Alea Luna NP Unavailable Lilibeth Al MD Unavailable [phone] Jayne Yeung MD Unavailable [phone] Washington Mancia MD Primary Care Provider [phone] Encounter Details Date Type Department Care Team (Late st Contact Info) Description 06/05/2025 Orders Only [facility] [address] [place] [address] Scanning, Provider Social History Tobacco [...] file Legal Sex Female 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 SUPERVISOR 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 Gender Identity Not on file Sexual Orientation [...] on filedocumented in this encounter Care Teams Land Title Examiner Relationship Specialty Start Date End Date Jania Johnson MD PCP - General Family Practice 05/11/22 06/18/25 Washington Mancia MD [address] [place] [address] PCP - General Internal Medicine 06/19/25 Tanya Colin, PT Physical Therapist Physical Therapy 05/09/18 Katty Dowell, PT Physical Therapist Physical Therapy 05/15/18 Rg Potter MD [address] [place] [address] Referring Physician Hematology 06/18/25 Alea Luna, CUSTOMER SERVICE DISPATCHER [address] [place], [place] [address] Nurse Practitioner Gynecology 04/30/15 Lilibeth Al MD [address] [facility] [address] [place], [place] [address] General Surgery 02/27/25 Jayne Yeung MD [address] [address] Consulting Physician Plastic Surgery 02/27/25 documented as of this encounter
--- OUTSIDE RECORDS SUMMARY | 2025-10-10 16:17 | XMS_ITS | Clinical Summary ---
Author Organization [facility] Address [address] [place] [address] Phone Care Team Providers Care Staffing Specialist Name Role Phone Ruiz Krishna MD Primary Care Provider [phone] Family History Medical History Relation Name Comments [...] 0.07 <1 S/CO 02/10/2017 11:19 PM CDT [facility] Comment: Signal/Cutoff ratio < 0.79 is Nondetected Signal/Cutoff ratio 0.80-0.99 is Grayzone Signal/Cutoff ratio > 0.99 is Detected Supplemental assays are recommended if signal/cutoff ratio is >/=1.00. Signal/cutoff ratio result >/= 5.00 is 97% predictive of positivity for recombinant immunoblot assay (RIBA) and will be reported to the [place] Department of Public Health as required. Blood specimen (specimen) Venipuncture / Unknown 02/10/2017 11:11 AM CDT 02/10/2017 2:18 PM CDT us Ruiz Krishna MD CHEMISTRY ORDERABLES Final Resul t [facility] [address] [place] [address], [place] * QUINN SCREENING BILATERAL DIGITAL W [...] made to exams dated: 12/16/2014, 09/21/2013 [facility], and 02/22/2011 [facility]. BREAST TISSUE:There are scattered fibroglandular densities in [...] next screening exam. Electronically signed by: Sammy lancsater/mervat:03/09/2016 13:34:43 Palliative Care Nurse Practitioner: Margaret VANEGAS)(Mao), [facility] letter sent: Normal Exam Reading location: [facility] BI-RADS: 1 Negative Procedure Note Sammy [...] made to exams dated: 12/16/2014, 09/21/2013 [facility], and 02/22/2011 [facility]. BREAST TISSUE:There are scattered fibroglandular densities in [...] exam. Electronically signed by: Sammy lancaster/mervat:03/09/2016 13:34:43 Palliative Care Nurse Practitioner: Margaret YUNG(Nicole)(M), [facility] letter sent: Normal Exam Reading location: [facility] BI-RADS: 1 Negative us Sammy Carballo MD IMG MAMMO ORDERABLES Fin al Result from Last 3 Months or Most Recently Relevant to Health Maintenance Care Teams Staffing Specialist Relationship Specialty Start Date End Date Ruiz Krishna MD [address] [place] [address] PCP - General Internal Medicine 02/10/16
--- OUTSIDE RECORDS SUMMARY | 2025-10-10 16:17 | XMS_ITS | Encounter Summary ---
Author Organization [facility] Address 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) Social History Tobacco Use Types Packs/Day Years Used Date Smoking Tobacco: Never Assessed Comments Unknown Sex and Gender Information Value Date Recorded Sex Assigned at Not on file Legal 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 Female 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 Gender Identity Not on file Sexual Orientation Not on file documented as of this encounter Plan of Treatment Upcoming Encounters Date Type Department Care Team (Late st Contact Info) Description 10/17/2025 3:45 PM EMBOSSING MACHINE OPERATOR Office Visit [facility] Oncology and Hematology - [place] [address] [facility] 200 [place] [address] Rg Potter MD [address] [facility] [address] [place] [address] documented as of this encounter Visit Diagnoses Diagnosis Malignant neoplasm of upper-inner quadrant of female breast (CMS/HCC) Malignant neoplasm of upper-inner quadrant of female breast documented in this encounter Care Teams Senior Consulting Manager Relationship Specialty Start Date End Date Washington Mancia MD NO ADDRESS ON FILE PCP - General Internal Medicine 06/21/25 documented as of this encounter
[2025-10-10 16:26] LABS: Alanine Aminotransferase 24 U/L (6-35); Albumin Level 4.4 g/dL (3.5-5.1); Alkaline Phosphatase 52 U/L (38-126); Anion Gap 6 mmol/L (4-12); Aspartate Amino Transferase 44 U/L (14-36); Bilirubin,Total 0.3 mg/dL (0.2-1.3); Blood Urea Nitrogen 12 mg/dL (7-17); Calcium 9.3 mg/dL (8.4-10.2); Carbon Dioxide 27 mmol/L (22-30); Chloride 104 mmol/L (98-107); Estimated Glomerular Filt Rate > 60; Glucose 184 mg/dL (65-110); Potassium 3.9 mmol/L (3.4-5.0); Sodium 137 mmol/L (137-145); Total Protein 7.0 g/dL (6.3-8.2)
== END 2025-10-10 13:34 | disposition home or self-care (01) ==
LOC: ANHLAB 13:34
PROVIDERS: Visit Provider Internal Medicine Hematology & Oncology
DX: C50.412 Malignant neoplasm of upper-outer quadrant of left female breast (principal); Z17.0 Estrogen receptor positive status [ER+]
CPT/HCPCS: 36415; 80053; 85025; 86300

== ENCOUNTER 2025-10-16 13:32 | Outpatient (CLI) | payer OTHER, SELFPAY ==
--- NOTE | ~2025-10-16 | US_ITS ---
EXAMINATION: US breast RT limited HISTORY: 59-year-old female with history of left breast invasive lobular carcinoma on prior history of right breast DCIS, status post bilateral mastectomy. Status post Bilateral mastectomy, presents for evaluation of right breast palpable lump felt in the region of the inframammary fold at 7:00. COMPARISON: None FINDINGS: Targeted ultrasound at the area of the patient's palpable lump at the 7 o'clock position of the right breast, 7 cm from the nipple reveals no discrete abnormality. 0.4 cm anechoic cyst is seen in this general area. IMPRESSION: No suspicious sonographic abnormality correlates to the area of palpable lump. Recommendation. Clinical management of patient's palpable lump. BI-RADS 2, BENIGN Reviewed, dictated and finalized at location A. K LEAD TEACHER IMPRESSION: No suspicious sonographic abnormality correlates to the area of pal pable lump. Recommendation. Clinical management of patient's palpable lump. BI-RADS 2, BENIGN
--- OUTSIDE RECORDS SUMMARY | 2025-10-16 16:06 | XMS_ITS | Clinical Summary ---
Author Organization [facility] Address [address] [place] [address] Care Team Providers Care Belt Sander Stone Name Role Phone Tanya Colin PT Unavailable Unavailable Katty Dowell PT Unavailable Unavailable Rg Potter MD Unavailable [phone] Alea Luna NP Unavailable Lilibeth Al MD Unavailable [phone] Jayne Yeung MD Unavailable [phone] Washington Mancia MD Primary Care Provider [phone] Allergies Active Allergy Reactions Criticality Noted Date [...] HPI/AP. Assessment & Plan (12/21/2017 8:48 AM TIE CUTTER): Obesity is improving with lifestyle modifications. Discussed [...] physical exam 05/11/2022 025 Overview (06/18/2025): Dr. Beardne. Assessment & Plan (06/28/2023 3:57 PM CDT): [...] SIMPLE W/ SENTINEL NODE BIOPSY 02/27/2025 Left [facility], with implant. [place] node negative. MASTECTOMY COMPLETE / SIMPLE 02/27/2025 Right [facility] Medical History Medical History Date [...] on file Legal Sex Female 4:22 PM TIE CUTTER Gender Identity Not on file Sexual Orientation [...] last revised on 2020. Testing performed by: [facility], [address] [place] [address]., [address] Blood 06/19/2025 10:5 6 AM CDT 06/19/2025 5:51 PM CDT Washington Mancia MD LAB MICROBIOLOGY - GENERAL OR DERABLES Final Result Performing Organization Address City/State/[facility] Co mo Phone Number [facility] [address] [facility] Department [place] [address] * Stool DNA - Cologuard (07/30/2023 8:50 AM CDT) Stool DNA - Cologuard Negative Negative [facility] (CLIA #:[id number]) Comment: NEGATIVE TEST RESULT. A negative Cologuard [...] (Jayla Bennett al, N Engl J Med 2014;370(14):1757-2535) The normal value (reference range) for this assay is negative. COLOGUARD RE-SCREENING RECOMMENDATION: Periodic colorectal cancer screening is an important part of preventive healthcare for asymptomatic individuals at average risk for colorectal cancer. Following a negative Cologuard result, the [place] Cancer Society and U.S. Multi-Society Task Force screening guidelines recommend a Cologuard re-screening interval of 3 years. References: [place] [employer] Guideline for Colorectal Cancer Screening: https://www.cancer.org/cancer/vbzam-vgfnjr-abuyrj/rextvmwqo-rwdjkqexu-nikhscb/ac s-rec ommendations.html.; Christiano DK, Kade DÍAZ, Kami GutierrezK, Colorectal Cancer Screening: Recommendations for Physicians and Patients from the U.S. Multi-Society Task Force on Colorectal Cancer Screening , Am J Gastroenterology 2017; 112:4721-3994. TEST DESCRIPTION: Composite algorithmic analysis of stool [...] (Jayla Bennett al, N Engl J Med 2014;370(14):7533-0788.) Cologuard may produce a false negative or false positive result (no colorectal cancer or precancerous polyp present at colonoscopy follow up). A negative Cologuard test result does not guarantee the absence of CRC or advanced adenoma (pre-cancer). The current Cologuard screening interval is every 3 years. ([place] Cancer Society and U.S. Multi-Society Task Force). Cologuard performance data in a 10,000 patient pivotal study using colonoscopy as the reference method can be accessed at the following location: www.[employer].com/results. Additional description of the Cologuard test process, warnings and precautions can be found at www.cologuard.com. Stool 07/30/2023 8:50 AM CDT 08/01/2023 4:12 AM CDT Anthony Bearden MD LAB BODY FLUIDS AND STOOLS O RDERABLES Final Result [facility] (CLIA #:[id number]) [place] [address] * Screening Mammogram Bilateral W Herbert (01/12/2018 [...] Most Recently Relevant to Health Maintenance Insurance [facility] [employer] [employer]IC Care Teams Belt Sander Stone Relationship Specialty Start Date End Date Washington Mancia MD [address] [place] [address] PCP - General Internal Medicine 06/19/25 Tanya Colin, PT Physical Therapist Physical Therapy 05/09/18 Katty Dowell, PT Physical Therapist Physical Therapy 05/15/18 Rg Potter MD [address] [place] [address] Referring Physician Hematology 06/18/25 Alea Luna, GEAR CUTTER [address] [place] [address] Nurse Practitioner Gynecology 04/30/15 Lilibeth Al MD [address] [facility] [address] [place], [place] [id number] General Surgery 02/27/25 Jayne Yeung MD [address] [address] Consulting Physician Plastic Surgery 02/27/25
--- OUTSIDE RECORDS SUMMARY | 2025-10-16 16:06 | XMS_ITS | Encounter Summary ---
Author Organization [facility] Address [address] [place] [address] Care Team Providers Care Boot Liner Maker Name Role Phone Tanya Colin PT Unavailable Unavailable Katty Dowell PT Unavailable Unavailable Jania Johnson MD Primary Care Provider [phone] Rg Potter MD Unavailable [phone] Alea Luna NP Unavailable Lilibeth Al MD Unavailable [phone] Jayne Yeung MD Unavailable [phone] Washington Mancia MD Primary Care Provider [phone] Encounter Details Date Type Department Care Team (Late st Contact Info) Description 06/05/2025 Orders Only [facility] [address] [place] [address] Scanning, Provider Social History Tobacco [...] on file Legal 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 Female 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 STEAM ENGINEER Gender Identity Not on file Sexual Orientation [...] on filedocumented in this encounter Care Teams Boot Liner Maker Relationship Specialty Start Date End Date Jania Johnson MD PCP - General Family Practice 05/11/22 06/18/25 Washington Mancia MD [address] [place] [address] PCP - General Internal Medicine 06/19/25 Tanya Colin, PT Physical Therapist Physical Therapy 05/09/18 Katty Dowell, PT Physical Therapist Physical Therapy 05/15/18 Rg Potter MD [address] [place] [phone] Referring Physician Hematology 06/18/25 Alea Luna, GIN CLERK [address] [place], [place] [address] Nurse Practitioner Gynecology 04/30/15 Lilibeth Al MD [address] [facility] [address] [place], [place] [id number] General Surgery 02/27/25 Jayne Yeung MD [address] [address] Consulting Physician Plastic Surgery 02/27/25 documented as of this encounter
--- OUTSIDE RECORDS SUMMARY | 2025-10-16 16:06 | XMS_ITS | Clinical Summary ---
Author Organization [facility] Address [address] [place] [address] Phone Care Team Providers Care Manager Department Name Role Phone Ruiz Krishna MD Primary Care Provider [phone] Family History Medical History Relation Name Comments [...] 0.07 <1 S/CO 02/10/2017 11:19 PM CDT [facility] Comment: Signal/Cutoff ratio < 0.79 is Nondetected Signal/Cutoff ratio 0.80-0.99 is Grayzone Signal/Cutoff ratio > 0.99 is Detected Supplemental assays are recommended if signal/cutoff ratio is >/=1.00. Signal/cutoff ratio result >/= 5.00 is 97% predictive of positivity for recombinant immunoblot assay (RIBA) and will be reported to the [place] Department of Public Health as required. Blood specimen (specimen) Venipuncture / Unknown 02/10/2017 11:11 AM CDT 02/10/2017 2:18 PM CDT us Ruiz Krishna MD CHEMISTRY ORDERABLES Final Resul t [facility] [address] [place] [address], [place] * QUINN SCREENING BILATERAL DIGITAL W [...] is made to exams dated: 12/16/2014, 09/21/2013 [facility], and 02/22/2011 [facility]. BREAST TISSUE:There are scattered fibroglandular [...] exam. Electronically signed by: Sammy lancaster/mervat:03/09/2016 13:34:43 Cost Clerk: Margaret VANEGAS)(Mao), [facility] letter sent: Normal Exam Reading location: [facility] BI-RADS: 1 Negative Procedure Note [...] is made to exams dated: 12/16/2014, 09/21/2013 [facility], and 02/22/2011 [facility]. BREAST TISSUE:There are scattered fibroglandular [...] exam. Electronically signed by: Sammy lancaster/mervat:03/09/2016 13:34:43 Cost Clerk: Margaret YUNG(Nicole)(M), [facility] letter sent: Normal Exam Reading location: [facility] BI-RADS: 1 Negative us Sammy Carballo MD IMG MAMMO ORDERABLES Fin al Result from Last 3 Months or Most Recently Relevant to Health Maintenance Care Teams Manager Department Relationship Specialty Start Date End Date Ruiz Krishna MD [address] [place] [address] PCP - General Internal Medicine 02/10/16
--- OUTSIDE RECORDS SUMMARY | 2025-10-16 16:06 | XMS_ITS | Encounter Summary ---
Author Organization [facility] Address 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) Social History Tobacco Use Types Packs/Day Years Used Date Smoking Tobacco: Never Assessed Comments Unknown Sex and Gender Information Value Date Recorded Sex Assigned at Not on file Legal 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 Female 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 Gender Identity Not on file Sexual Orientation Not on file documented as of this encounter Plan of Treatment Upcoming Encounters Date Type Department Care Team (Late st Contact Info) Description 10/17/2025 3:45 PM ENAMEL PULVERIZER Office Visit [facility] Oncology and Hematology - [place] [address] [facility] [address] [place] [address] Rg Potter MD [address] [facility] [address] [place] [address] documented as of this encounter Visit Diagnoses Diagnosis Malignant neoplasm of upper-inner quadrant of female breast (CMS/HCC) Malignant neoplasm of upper-inner quadrant of female breast documented in this encounter Care Teams Cook Fry Relationship Specialty Start Date End Date Washington Mancia MD NO ADDRESS ON FILE PCP - General Internal Medicine 06/21/25 documented as of this encounter
--- OUTSIDE RECORDS SUMMARY | 2025-10-16 16:06 | XMS_ITS | Clinical Summary ---
Author Organization [address] Address [address] [place] [address] Care Team Providers Care Precast Concrete Products Installer Name Role Phone Washington Mancia MD [...] Encounters Date Type Department Care Team Description 10/11/2025 Orders Only [facility] Oncology and Hematology - [place] [facility] [address] [address] Rg Potter MD 10/08/2025 External Device Data STL ABSTRACTION Provider, [...] on file Legal Sex Female 5:41 AM SHOPFITTER Gender Identity Not on file Sexual Orientation [...] st Contact Info) Description 10/17/2025 3:45 PM SHOPFITTER Office Visit [facility] Oncology and Hematology - [place] [address] [place] [address] [facility] [address] [place] [address] Rg Potter MD [address] [facility] [address] [place] [address] Health Maintenance Due Date Last [...] Procedure Name Priority Date/Time Associated Diagnosis Comments CHG CA 15 3 Routine 10/10/2025 1:18 PM SHOPFITTER COMPREHENSIVE METABOLIC PANEL Routine 10/10/2025 1:07 PM SHOPFITTER CBC WITH AUTODIFFERENTIAL Routine 2024 12:58 PM SHOPFITTER MAMMO SCREEN BILAT W OR WO CAD Routine 01/27/2010 from Last 3 Months or Most Recently Relevant to Health Maintenance Results * CHG CA 15 3 (10/10/2025 1:18 PM SHOPFITTER) us Rg Potter MD CHG - LABORATORY Final Result * COMPREHENSIVE METABOLIC PANEL (10/10/2025 1:07 PM SHOPFITTER) Blood us Rg Potter MD CHEMISTRY ORDERABLES Final Resu lt * CBC WITH AUTODIFFERENTIAL (10/10/2025 12:58 PM SHOPFITTER) Blood us Rg Potter MD HEMATOLOGY ORDERABLES Final Res ult * MAMMO DIGITAL SCREEN BILAT (01/27/2010) Anatomical Region Laterality Modality Breast Bilateral Other us Abstract Provider MAMMO ORDERABLES Final Result from Last 3 Months or Most Recently Relevant to Health Maintenance Insurance Care Teams Precast Concrete Products Installer Relationship Specialty Start Date End Date Washington Mancia MD NO ADDRESS ON FILE PCP - General Internal Medicine 06/21/25
--- OUTSIDE RECORDS SUMMARY | 2025-10-16 16:06 | XMS_ITS | Encounter Summary ---
Author Organization [facility] Address 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) Social History Tobacco Use Types Packs/Day Years Used Date Smoking Tobacco: Never Assessed Comments Unknown Sex and Gender Information Value Date Recorded Sex Assigned at Not on file Legal Sex Female 5:[address] SPECIALIST Gender Identity Not on file Sexual Orientation Not on file documented as of this encounter Plan of Treatment Upcoming Encounters Date Type Department Care Team (Late st Contact Info) Description 10/17/2025 3:[address] SPECIALIST Office Visit [facility] Oncology and Hematology - [place] [address] [facility] [address] [place] [address] Rg Potter MD [address] [facility] [address] [place] [address] documented as of this encounter Visit Diagnoses Diagnosis Malignant neoplasm of upper-inner quadrant of female breast (CMS/HCC) Malignant neoplasm of upper-inner quadrant of female breast documented in this encounter Care Teams Regulatory Submissions Associate Relationship Specialty Start Date End Date Washington Mancia MD NO ADDRESS ON FILE PCP - General Internal Medicine 06/21/25 documented as of this encounter
--- OUTSIDE RECORDS SUMMARY | 2025-10-16 16:06 | XMS_ITS | Encounter Summary ---
Author Organization [facility] Address [address] [place] [address] Care Team Providers Care Apron Man Name Role Phone Washington Mancia MD Primary Care Provider Unavail able Encounter Details Date Type Department Care Team (Late Contact Info) Description 10/11/2025 Orders Only [facility] Oncology [facility] Elva [address] [place] [address] Rg Potter MD [address] [place], [place] [address] [address] [place] [phone] Social History Tobacco Use Types Packs/Day Years Used Date Smoking Tobacco: Never Smokeless Tobacco: Never Alcohol Use Standard Drinks/Week Comments Yes 0 (1 standard drink = 0.6 oz pur e alcohol) Occasionally Comments Unknown Sex and Gender Information Value Date Recorded Sex Assigned at Not on file Legal Sex Female 5:41 AM WORK[employer]' COMPENSATION CLAIMS EXAMINER Gender Identity Not on file Sexual Orientation Not on file documented as of this encounter Plan of Treatment Upcoming Encounters Date Type Department Care Team (Late Contact Info) Description 10/17/2025 3:45 PM WORK[employer] COMPENSATION CLAIMS EXAMINER Office Visit [facility] Oncology [facility] Hematology [facility] Awais [address] [place] [address] Rg Potter MD [facility] [address] [place] [phone] documented as of this encounter Procedures Procedure Name Priority Date/Time Associated Diagnosis Comments CHG CA 15 3 Routine 10/10/2025 1:18 PM WORK[employer] COMPENSATION CLAIMS EXAMINER COMPREHENSIVE METABOLIC PANEL Routine 10/10/2025 1:07 PM WORKERS' COMPENSATION CLAIMS EXAMINER CBC WITH AUTODIFFERENTIAL Routine 2024 12:58 PM WORKERS' COMPENSATION CLAIMS EXAMINER documented in this encounter Results * CHG CA 15 3 (10/10/2025 1:18 PM WORKERS' COMPENSATION CLAIMS EXAMINER) us Rg Potter MD CHG - LABORATORY Final Result * COMPREHENSIVE METABOLIC PANEL (10/10/2025 1:07 PM WORKERS' COMPENSATION CLAIMS EXAMINER) Blood us Rg Potter MD CHEMISTRY ORDERABLES Final Resu lt * CBC WITH AUTODIFFERENTIAL (10/10/2025 12:58 PM WORKERS' COMPENSATION CLAIMS EXAMINER) Blood us Rg Potter MD HEMATOLOGY ORDERABLES Final Res ult documented in this encounter Visit Diagnoses Not on filedocumented in this encounter Care Teams Apron Man Relationship Specialty Start Date End Date Washington Mancia MD NO ADDRESS ON FILE PCP - General Internal Medicine 06/21/25 documented as of this encounter
== END 2025-10-16 13:33 | disposition home or self-care (01) ==
LOC: ANHFOHIMG 13:34
PROVIDERS: PCP Internal Medicine Infectious Disease; Visit Provider Surgery
DX: N63.13 Unspecified lump in the right breast, lower outer quadrant (principal)
CPT/HCPCS: 76642